=== PATIENT | male | born 1965 | race Caucasian/White ===

== ENCOUNTER 2018-05-28 08:54 | Day surgery (SDC) | payer MEDICAID, SELFPAY ==
--- NOTE | 2018-05-21 17:03 | EKG12_ITS ---
Test Reason : EKG Blood Pressure : / mmHG Vent. Rate : 083 BPM Atrial Rate : 083 BPM P-R Int : 160 ms QRS Dur : 108 ms QT Int : 384 ms P-R-T Axes : 003 -52 002 degrees QTc Int : 451 ms Normal sinus rhythm Left anterior fascicular block Abnormal ECG Confirmed by MALACHI ANGUIANO, BRYSON ([id number]), desk editor AUNDREA PATE ([id number]) on 05/22/2018 3:15:32 PM Referred By: Mitchel Gentile Confirmed By:BRYSON LY MD
[2018-05-21 17:12] LABS: Hemoglobin 14.3 g/dl (13.0-16.5); Mean Corp Hgb Conc 33.3 g/gl (32-36); Mean Corpuscular Hgb 30.8 pg (27.0-32.0); Mean Corpuscular Volume 92.5 fL (80-94); Platelet Count 334 K/mm3 (150-450); RBC Distribution Width CV 14.1 % (11.6-14.6); RBC Distribution Width SD 46.1 fl (35.1-43.9); Red Blood Count 4.65 M/mm3 (4.6-6.2); White Blood Count 10.9 K/mm3 (4.4-11.0)
[2018-05-21 17:29] LABS: Anion Gap 10 (5-15); BUN 16 mg/dL (7-18); BUN/Creat Ratio 14.4 RATIO (10-20); Calcium,Total 9.2 mg/dL (8.5-10.1); Chloride 104 mmol/L (98-107); Creatinine, Serum 1.11 mg/dL (0.70-1.30); EST Glomerular Filtration Rate 74 mL/min (>60); Est Glom Filt Rate - Afr Amer 89 mL/min (>60); Glucose 79 mg/dL (74-106); Potassium 4.2 mmol/L (3.5-5.1); Scan Indicated on CBC? Y/N NO; Sodium Level 143 mmol/L (136-145)
[2018-05-28 09:21] VITALS: BP 131/88; PULSE 76; RESP 16; TEMP 37.4; O2SAT 96; BMI 29.5
[2018-05-28] MEDS: Cefazolin 2 GM in 0.9% Normal Saline 100 ML IV (11:50)
[2018-05-28] MEDS: Bupiv/Epi 0.5% Mpf 30 ML Vial (12:05)
--- NOTE | 2018-05-28 13:10 | PCM.IMDPSTOP ---
Immediate Post-Op Note Date of Procedure: 05/28/18 Primary Surgeon/Physician: Mitchel Gentile wellfield technician: Gianni Anderson Pre-Operative Diagnosis: ACL graft tear, medial and lateral meniscus tears, OA right knee Post-Operative Diagnosis: same Surgery/Procedure Performed:: ACL reconstruction with 9 mm tiabialis anterior allograft, partial medial and lateral meniscectomies, chondroplasty [facility] [place] Description of Surgical Findings:: see op note Estimated Blood Loss: <25cc Specimen's removed: none Type of Anesthesia:: General/Regional ASA Class: ASA2 Mod Systematic Disease - Admit VTE Documentation VTE Present on Admission: No VTE Mechan Device Prophylaxis: SCD's, Thigh High ASHLY Hose VTE Pharm Prophylaxis ordered?: Yes
--- NOTE | 2018-05-28 13:14 | OP.PN_ITS ---
Immediate Post-Op Note Date of Procedure: 05/28/18 Primary Surgeon/Physician: Mitchel Gentile plug cutting machine operator: Gianni Anderson Pre-Operative Diagnosis: ACL graft tear, medial and lateral meniscus tears, OA right knee Post-Operative Diagnosis: same Surgery/Procedure Performed:: ACL reconstruction with 9 mm tiabialis anterior allograft, partial medial and lateral meniscectomies, chondroplasty [facility] [place] Description of Surgical Findings:: see op note Estimated Blood Loss: <25cc Specimen's removed: none Type of Anesthesia:: General/Regional ASA Class: ASA2 Mod Systematic Disease - Admit VTE Documentation VTE Present on Admission: No VTE Mechan Device Prophylaxis: SCD's, Thigh High ASHLY Hose VTE Pharm Prophylaxis ordered?: Yes
[2018-05-28 13:33] VITALS: BP 131/88; BP 136/86; PULSE 83; RESP 16; TEMP 36.4; O2SAT 92
[2018-05-28 13:45] VITALS: BP 131/88; BP 161/89; PULSE 81; RESP 16; O2SAT 96
[2018-05-28 14:00] VITALS: BP 131/88; BP 135/89; PULSE 77; RESP 16; O2SAT 96
[2018-05-28 14:11] VITALS: BP 125/83; BP 131/88; PULSE 77; RESP 16; TEMP 36.7; O2SAT 96
[2018-05-28] MEDS: HYDROcodone Bitartrate/Apap 5/325 Tablet PO (14:54)
[2018-05-28 15:07] VITALS: BP 131/88; BP 135/83; PULSE 65; RESP 16; TEMP 36.7; O2SAT 96
== END 2018-05-28 15:30 | disposition home or self-care (01) ==
LOC: SDC 08:56 → AC 08:57
PROVIDERS: Family Provider Nurse Practitioner Family; PCP Nurse Practitioner Family; Referring Provider Orthopaedic Surgery; Visit Provider Orthopaedic Surgery
PROC: (CPT 29888; principal; 2018-05-28 10:20)
DX: S83.511A Sprain of anterior cruciate ligament of right knee, initial encounter (principal); S83.231A Complex tear of medial meniscus, current injury, right knee, initial encounter; S83.281A Other tear of lateral meniscus, current injury, right knee, initial encounter; X58.XXXA Exposure to other specified factors, initial encounter; Y93.72 Activity, wrestling; M94.261 Chondromalacia, right knee; M17.11 Unilateral primary osteoarthritis, right knee; I10 Essential (primary) hypertension; K59.09 Other constipation; Z79.82 Long term (current) use of aspirin; Z79.899 Other long term (current) drug therapy; Z87.891 Personal history of nicotine dependence
CPT/HCPCS: 29880; 29888; 64447; 36415; 80048; 85027; 93005; J7120; J2405

== ENCOUNTER → 2020-06-17 10:40 | Outpatient (CLI) | payer MEDICAID, SELFPAY ==
--- NOTE | 2020-06-17 10:44 | ECHOD_ITS ---
Reason For Study: SOB Procedure This was a 2D Doppler, Color Flow transthoracic echocardiogram. Exam performed in department. Left Ventricle Normal LV size. Apical false tendon noted. Mild global left ventricular systolic dysfunction. The estimated ejection fraction is 40 %. Transmitral doppler flow suggestive of impaired relaxation of left ventricle. Right Ventricle Normal RV size. Normal systolic function. Atria Normal left atrium. Normal right atrium. No doppler evidence for ASD. Mitral Valve There is no mitral annular calcification. Mild mitral valve prolapse, posterior leaflet. Trivial mitral valve insufficiency. Tricuspid Valve Normal tricuspid valve. Trivial tricuspid valve insufficiency. Right ventricular systolic pressure estimated to be 20 mmHg. Aortic Valve Trisinus/trileaflet aortic valve. Mild focal aortic valve calcification. Trivial aortic valve insufficiency. Pulmonic Valve The pulmonic valve is not well visualized. Trivial pulmonic valve insufficiency. Great Vessels Normal sized aortic root. Pericardium/Pleural No pericardial effusion. MMode/2D Measurements & Calculations LVIDd: 4.6 cm IVSd: 1.1 cm Ao root diam: 3.6 cm LVIDs: 3.4 cm LVPWd: 1.0 cm RVDd: 3.2 cm FS: 27.0 % LAV(MOD-bp): 42.0 ml LVAd ap4: 38.5 cm2 SV(MOD-sp4): 69.1 ml LAV(MOD-bp) Indexed: 18.9 ml/m2 EDV(MOD-sp4): 135.4 ml LAV(MOD-sp2): 40.0 ml EDV(sp4-el): 136.8 ml LAV(MOD-sp4): 42.6 ml LVAs ap4: 25.3 cm2 ESV(MOD-sp4): 66.3 ml ESV(sp4-el): 65.8 ml EF(MOD-sp4): 51.1 % EF(sp4-el): 51.9 % SV(sp4-el): 71.0 ml LA A4 area: 16.3 cm2 LA dimension(2D): 3.2 cm RA A4 area: 15.6 cm2 Doppler Measurements & Calculations MV E max duke: 54.0 cm/sec Lat Peak E' Duke: 9.3 cm/sec Med Peak E' Duke: 8.5 cm/sec MV A max duke: 80.3 cm/sec E/E' lat: 5.8 E/E' med: 6.3 MV E/A: 0.67 Ao V2 max: 147.4 cm/sec LV V1 max: 100.8 cm/sec PA V2 max: 130.8 cm/sec Ao max P.7 mmHg LV V1 max P.1 mmHg TR max duke: 204.0 cm/sec TR max P.6 mmHg Interpretation Summary Mild global left ventricular systolic dysfunction. The estimated ejection fraction is 40 %. Apical false tendon noted. Mild mitral valve prolapse, posterior leaflet Trivial mitral valve insufficiency. Trivial tricuspid valve insufficiency. Mild focal aortic valve calcification. Trivial aortic valve insufficiency. Trivial pulmonic valve insufficiency. Right ventricular systolic pressure estimated to be 20 mmHg. Transmitral doppler flow suggestive of impaired relaxation of left ventricle Ordering Physician: Mehnaz Desouza Referring Physician: Mehnaz Desouza Performed By: Maren Cochran RDCS
--- NOTE | 2020-06-17 16:15 | STRESSREP ---
Stress Test Report Date: 06-17-2020 Procedure: Exercise tolerance test Indications: Shortness of breath/dyspnea on exertion Consent: Per the patient Procedure: The patient exercised on a Steve protocol for 9 minutes and 30 seconds completing Stage III and 30 seconds of Stage IV achieving a peak heart rate of 148 bpm (89% predicted maximal heart rate) with a peak blood pressure 158/72 mmHg and a peak MET capacity of approximately 10 MET's. The baseline ECG demonstrated normal sinus rhythm; nonspecific T wave abnormality. The peak exercise ECG demonstrated no obvious ECG changes. There was a rare PAC during exercise and a rare PVC during recovery. The functional capacity was considered good. The patient had no complaint of chest discomfort during exercise or recovery. The examination was discontinued secondary to dyspnea. Impression: 1. Technically adequate (percent predicted maximal heart rate greater than 85%) exercise tolerance test 2. Peak exercise ECG with with no obvious ECG changes 3. There was a rare PAC during exercise and a rare PVC during recovery This note was generated with [employer] software. It may contain incorrect words, spelling, and punctuation that were not noted in checking the note before signing.
== END ==
PROVIDERS: PCP Nurse Practitioner Family; Referring Provider Nurse Practitioner Family; Visit Provider Nurse Practitioner Family
DX: R06.02 Shortness of breath (principal); I10 Essential (primary) hypertension; E66.9 Obesity, unspecified
CPT/HCPCS: 93017; 93306

== ENCOUNTER → 2020-10-12 09:52 | Outpatient (CLI) | payer MEDICAID, SELFPAY ==
[2020-07-15 15:18] VITALS: BMI 27.1
--- NOTE | 2020-10-12 09:55 | ECHOD_ITS ---
Reason For Study: Dyspnea/SOB Procedure This was a 2D Doppler, Color Flow transthoracic echocardiogram. Exam performed in department. Left Ventricle Normal LV size. Moderate concentric left ventricular hypertrophy. Left ventricular systolic function is normal. Stage 1 diastolic dysfunction. The estimated ejection fraction is 55 %. No regional wall motion abnormalities noted. Right Ventricle Normal RV size. Normal systolic function. Atria Normal left atrium. Normal right atrium. Mitral Valve Normal mitral valve. Tricuspid Valve Normal tricuspid valve. Mild (1+) tricuspid valve insufficiency. Aortic Valve Trisinus/trileaflet aortic valve. Mild (1+) eccentric aortic valve insufficiency. Pulmonic Valve Normal pulmonic valve. Great Vessels Normal aortic root. The pulmonary artery is normal size. Normal inferior vena cava. Pericardium/Pleural No pericardial effusion. MMode/2D Measurements & Calculations LVIDd: 4.6 cm IVSd: 1.4 cm LA dimension: 4.0 cm LVIDs: 3.1 cm LVPWd: 1.3 cm RVDd: 3.9 cm FS: 32.2 % LAV(MOD-bp): 47.7 ml LVAd ap4: 39.1 cm2 SV(MOD-sp4): 71.5 ml LAV(MOD-bp) Indexed: 22.4 ml/m2 EDV(MOD-sp4): 144.5 ml LAV(MOD-sp2): 50.0 ml EDV(sp4-el): 151.4 ml LAV(MOD-sp4): 45.6 ml LVAs ap4: 26.3 cm2 ESV(MOD-sp4): 73.0 ml ESV(sp4-el): 75.8 ml EF(MOD-sp4): 49.5 % EF(sp4-el): 50.0 % SV(sp4-el): 75.7 ml LA A4 area: 17.6 cm2 RA A4 area: 16.1 cm2 Time Measurements MV dec time: 0.29 sec Doppler Measurements & Calculations MV E max duke: 63.6 cm/sec Lat Peak E' Duke: 8.5 cm/sec Med Peak E' Duke: 7.7 cm/sec MV A max duke: 81.4 cm/sec E/E' lat: 7.5 E/E' med: 8.2 MV E/A: 0.78 MV V2 max: 80.2 cm/sec MV P1/2t max duke: 69.2 cm/sec Ao V2 max: 130.3 cm/sec MV max P.6 mmHg MV P1/2t: 134.5 msec Ao max P.8 mmHg MV V2 mean: 45.0 cm/sec MV mean P.93 mmHg MV dec slope: 150.8 cm/sec2 MV V2 VTI: 27.8 cm MVA(P1/2t): 1.6 cm2 AI max duke: 394.7 cm/sec LV V1 max: 90.9 cm/sec PA V2 max: 122.3 cm/sec AI max P.3 mmHg LV V1 max P.3 mmHg AI dec slope: 200.0 cm/sec2 AI P1/2t: 577.9 msec TR max duke: 212.3 cm/sec TR max P.0 mmHg ECHO/Echo Complete Interpretation Summary Normal LV size. Moderate concentric left ventricular hypertrophy. Left ventricular systolic function is normal. Stage 1 diastolic dysfunction. The estimated ejection fraction is 55 %. Mild (1+) eccentric aortic valve insufficiency. Compared to previous study, the left ventricular systolic function has improved .. Ordering Physician: Silas Ta Referring Physician: Mehnaz Desouza Performed By: Kamran Lopez RCS
== END ==
PROVIDERS: PCP Nurse Practitioner Family; Referring Provider Internal Medicine Cardiovascular Disease; Visit Provider Internal Medicine Cardiovascular Disease
DX: I42.9 Cardiomyopathy, unspecified (principal); I10 Essential (primary) hypertension; R06.00 Dyspnea, unspecified; R06.02 Shortness of breath
CPT/HCPCS: 93306

== ENCOUNTER → 2021-01-20 10:52 | Outpatient (CLI) | payer MEDICAID, SELFPAY ==
[2020-10-16 10:35] VITALS: BMI 25.6
--- NOTE | 2021-01-20 10:59 | ECHOL_ITS ---
Reason For Study: CHF Procedure This was a limited 2D transthoracic echocardiogram. Exam performed in department. Left Ventricle Normal LV size. Mild concentric left ventricular hypertrophy. Left ventricular systolic function is normal. The estimated ejection fraction is 55 %. No regional wall motion abnormalities noted. Right Ventricle Normal RV size. Normal systolic function. Atria Normal left atrium. Normal right atrium. Mitral Valve Normal mitral valve. Tricuspid Valve Normal tricuspid valve. Aortic Valve Normal aortic valve. Trisinus/trileaflet aortic valve. Pulmonic Valve Normal pulmonic valve. Great Vessels Normal aortic root. The pulmonary artery is normal size. Normal inferior vena cava. Pericardium/Pleural No pericardial effusion. MMode/2D Measurements & Calculations LVIDd: 5.1 cm IVSd: 1.2 cm Ao root diam: 3.6 cm LVIDs: 3.8 cm LVPWd: 1.2 cm RVDd: 3.9 cm FS: 25.2 % LAV(MOD-bp): 54.8 ml LA A4 area: 17.4 cm2 LA dimension(2D): 3.7 cm LAV(MOD-bp) Indexed: 25.7 ml/m2 LAV(MOD-sp2): 52.6 ml LAV(MOD-sp4): 47.9 ml RA A4 area: 19.0 cm2 ECHO/Echo, Limited Study Interpretation Summary Normal LV size. Left ventricular systolic function is normal. The estimated ejection fraction is 55 %. Mild concentric left ventricular hypertrophy. Ordering Physician: Curtis Guajardo Referring Physician: Lindsey Desouza Performed By: Daisy Kelley RDCS, RVT
== END ==
PROVIDERS: PCP Nurse Practitioner Family; Referring Provider Nurse Practitioner Family; Visit Provider Nurse Practitioner Family
DX: I42.9 Cardiomyopathy, unspecified (principal); E78.5 Hyperlipidemia, unspecified; I10 Essential (primary) hypertension
CPT/HCPCS: 93308

== ENCOUNTER → 2023-03-07 | Outpatient (CLI) | payer MEDICAID, SELFPAY ==
[2023-03-07 10:04] LABS: Absolute Lymphocyte Count 1.63 X10^3/uL (0.83-4.51); Absolute Neutrophil Count 4.5 X10^3/uL (2.0-7.7); Basophil# 0.03 X10^3/uL; Basophil% 0.4 % (0-1); Eosinophil# 0.22 X10^3/uL; Hematocrit 41.5 % (40-54); Hemoglobin 13.9 g/dL (13.0-16.5); Lymphocyte # 1.63 X10^3/ul (0.83-4.51); Mean Corp Hgb Conc 33.5 g/dL (32-36); Mean Corpuscular Hgb 33.1 pg (27.0-32.0); Mean Corpuscular Volume 98.8 fL (80-94); Mean Platelet Vol. 9.1 fl (6.2-12.0); Monocyte# 1.01 X10^3/uL; Monocyte% 13.6 % (0-10); NRBC Flagged by Analyzer 0 % (0-5); Neutrophil # 4.49 X10^3/uL (2.7-7.7); Neutrophil % 60.7 % (47-70); Platelet Count 195 K/mm3 (150-450); RBC Distribution Width CV 12.6 % (11.6-14.6); RBC Distribution Width SD 45.3 fl (35.1-43.9); White Blood Count 7.4 K/mm3 (4.4-11.0)
[2023-03-07 10:35] LABS: Anion Gap 5 (5-15); BUN 14 mg/dL (7-18); BUN/Creat Ratio 15.2 RATIO (10-20); Chloride 107 mmol/L (98-107); Creatinine, Serum 0.92 mg/dL (0.70-1.30); EST Glomerular Filtration Rate 90 mL/min (>60); Est Glom Filt Rate - Afr Amer 109 mL/min (>60); Glucose 98 mg/dL (74-106); Sodium Level 139 mmol/L (136-145)
[2023-03-07 10:43] LABS: Hemoglobin A1c 5.5 % (3.8-5.6)
[2023-03-07 10:53] LABS: AST(SGOT) 21 U/L (15-37); Alanine Aminotransfer ALT/SGPT 35 U/L (16-61); Albumin, Serum 3.7 g/dL (3.2-5.0); Alkaline Phosphatase 52 U/L (45-117); Bilirubin, Direct 0.15 mg/dL (0.00-0.30); Cholesterol 185 mg/dL (200); Globulin 3.9 g/dL (2.2-4.2); High Density Lipoprotein 46 mg/dL; Protein, Total 7.6 g/dL (6.4-8.2); T4 Free Direct 1.12 ng/dL (0.76-1.46); Thyroid Stim Hormone (TSH) 3.03 uIU/mL (0.358-3.74); Triglycerides 160 mg/dL; Very Low Density Lipoprotein 32 mg/dL (5-40)
[2023-03-15 21:07] LABS: Testosterone Free 1.9 pg/mL (7.2-24.0)
== END | disposition home or self-care (01) ==
LOC: LAB 09:47
PROVIDERS: Orthopaedic Surgery; PCP Nurse Practitioner Family; Referring Provider Nurse Practitioner Family; Visit Provider Nurse Practitioner Family
DX: Z01.818 Encounter for other preprocedural examination (principal); I42.8 Other cardiomyopathies; R53.83 Other fatigue; I10 Essential (primary) hypertension; E78.5 Hyperlipidemia, unspecified
CPT/HCPCS: 80048; 80061; 80076; 83036; 84402; 84403; 84439; 84443; 85025

== ENCOUNTER → 2023-03-08 | Outpatient (CLI) | payer MEDICAID, SELFPAY ==
--- NOTE | 2023-03-08 06:43 | ECHOD_ITS ---
Reason For Study: FATIGUE, CAD HX. Procedure This was a 2D Doppler, Color Flow transthoracic echocardiogram. Exam performed in department. Left Ventricle Normal LV size. Mild concentric left ventricular hypertrophy. Left ventricular systolic function is normal. The estimated ejection fraction is 56 %. Stage 1 diastolic dysfunction. No regional wall motion abnormalities noted. Right Ventricle Normal RV size. Normal systolic function. Atria Normal left atrium. Normal right atrium. Mitral Valve Normal mitral valve. Tricuspid Valve Normal tricuspid valve. Mild tricuspid valve insufficiency. Pulmonary artery systolic pressure is 35 mmHg. Aortic Valve Trisinus/trileaflet aortic valve. Pulmonic Valve Normal pulmonic valve. Great Vessels Normal aortic root. The pulmonary artery is normal size. Normal inferior vena cava. Pericardium/Pleural No pericardial effusion. MMode/2D Measurements & Calculations LVIDd: 5.1 cm IVSd: 1.3 cm Ao root diam: 3.4 cm LVIDs: 3.6 cm LVPWd: 1.2 cm RVDd: 3.9 cm FS: 29.4 % LAV(MOD-bp): 60.8 ml LVAd ap4: 36.9 cm2 SV(MOD-sp4): 64.8 ml LAV(MOD-bp) Indexed: 28.6 ml/m2 LVLd ap4: 9.2 cm LAV(MOD-sp2): 58.7 ml EDV(MOD-sp4): 124.0 ml LAV(MOD-sp4): 60.4 ml EDV(sp4-el): 125.1 ml LVAs ap4: 22.5 cm2 LVLs ap4: 7.9 cm ESV(MOD-sp4): 59.2 ml ESV(sp4-el): 54.4 ml EF(MOD-sp4): 52.3 % EF(sp4-el): 56.5 % SV(sp4-el): 70.7 ml LA A4 area: 21.5 cm2 LA dimension(2D): 3.7 cm RA A4 area: 17.3 cm2 Time Measurements MV dec time: 0.23 sec Doppler Measurements & Calculations MV E max duke: 72.4 cm/sec Lat Peak E' Duke: 11.9 cm/sec Med Peak E' Duke: 9.7 cm/sec MV A max duke: 76.3 cm/sec E/E' lat: 6.1 E/E' med: 7.5 MV E/A: 0.95 MV V2 max: 95.3 cm/sec Ao V2 max: 157.3 cm/sec MV max P.6 mmHg MV dec slope: 315.7 cm/sec2 Ao max P.9 mmHg MV V2 mean: 68.7 cm/sec Ao V2 mean: 117.8 cm/sec MV mean P.0 mmHg Ao mean P.0 mmHg MV V2 VTI: 21.2 cm Ao V2 VTI: 31.2 cm AV (velocity ratio): 0.69 LV V1 max: 104.8 cm/sec PA V2 max: 132.1 cm/sec TR max duke: 275.0 cm/sec LV V1 max P.4 mmHg PA V2 mean: 94.3 cm/sec TR max P.2 mmHg LV V1 mean P.5 mmHg LV V1 mean: 75.3 cm/sec LV V1 VTI: 21.6 cm ECHO/Echo Complete Interpretation Summary Normal LV size. Left ventricular systolic function is normal. The estimated ejection fraction is 56 %. Mild concentric left ventricular hypertrophy. Stage 1 diastolic dysfunction. Pulmonary artery systolic pressure is 35 mmHg. Ordering Physician: Curtis Guajardo Referring Physician: Mehnaz Desouza Performed By: Daisy Kelley, OCTAVIO, RVT
--- NOTE | 2023-03-13 16:38 | STRESSREP_ITS ---
Stress Test Report Date: 03/08/2023 Procedure: Exercise tolerance test/imaging study Indications: Fatigue, preoperative evaluation Consent: Per the patient Procedure: The patient exercised on a Steve protocol for 9 minutes achieving a peak heart rate of 157 bpm (96% predicted maximal heart rate) with a peak blood pressure 190/88 mmHg and a peak MET capacity of 10.1 METs. The baseline ECG demonstrated normal sinus rhythm. The peak exercise ECG demonstrated no significant ischemic changes. EKG during recovery revealed no significant ischemic changes [There were no cardiac dysrhythmias pretest, during exercise, or recovery]. The functional capacity was considered normal for age. There was [no complaint of chest discomfort during exercise or recovery]. The examination was discontinued secondary to dyspnea. Impression: 1. Technically adequate (percent predicted maximal heart rate greater than 85%) exercise tolerance test 2. Stress test is negative for exercise-induced EKG changes of ischemia 3. The test test is negative for exercise-induced chest pain 4. Functional capacity is normal for age 5. Nuclear images pending Myocardial perfusion imaging study: Technique: The patient was injected with 13.9 mCi of technetium 99m Cardiolite and subsequently rest SPECT Cardiolite nuclear imaging was obtained in the horiz ontal long, vertical long, and short axis views. The patient exercised on a Steve protocol. Please see above for details. The patient was injected with 40.2 mCi of technetium 99m Cardiolite and subsequently stress SPECT Cardiolite nuclear imaging was obtained in the horizontal long, vertical long, and short axis views. A gated Cardiolite study at peak stress was obtained. Interpretation: Rest and stress SPECT Cardiolite nuclear imaging status post realignment, normalization, and attenuation correction, demonstrates mildly decreased radioisotope uptake in the inferior wall on both the rest and stress images prior to attenuation correction. After attenuation correction there is overall normal myocardial radioisotope uptake. These findings are suggestive of diaphragmatic attenuation artifact. No evidence of significant ischemia or infarction. The gated Cardiolite study demonstrates no significant regional wall motion abnormalities. The reported LVEF is 62%. Impression: 1. There is no evidence of significant ischemia or infarction. 2. The gated Cardiolite study reports an LVEF of 62%. This note was generated with [facility] software. It may contain incorrect words, spelling, and punctuation that were not noted in checking the note before signing.
== END | disposition home or self-care (01) ==
LOC: CVS 06:36
PROVIDERS: PCP Nurse Practitioner Family; Referring Provider Nurse Practitioner Family; Visit Provider Nurse Practitioner Family
DX: R53.83 Other fatigue (principal); I42.8 Other cardiomyopathies; I10 Essential (primary) hypertension; E78.5 Hyperlipidemia, unspecified
CPT/HCPCS: 78452; 93017; 93306; A9500; A4216

== ENCOUNTER 2023-03-20 05:29 | Day surgery (SDC) | payer MEDICAID, SELFPAY ==
[2023-03-20 06:05] VITALS: BP 145/95; PULSE 62; RESP 18; TEMP 36.5; O2SAT 100; BMI 27.1
[2023-03-20] MEDS: Lactated Ringers 1,000 ML 15 ML IV ×2 (06:45→09:01)
[2023-03-20] MEDS: Cefazolin 2 GM in 0.9% Normal Saline (100mL Bag) 100 ML IV (07:40)
[2023-03-20] MEDS: Epinephrine (1 mg/ml) 1 MG/ML VIAL ×2 (08:00→08:52)
[2023-03-20] MEDS: Bupivacaine Mpf 0.5% 30 ML VIAL (08:00)
--- NOTE | 2023-03-20 09:18 | OP.PCM_ITS ---
Report of Operation Date of Procedure: 03/20/23 Pre-Operative Diagnosis: SAIS,AC arthritis, RCT, possible biceps tendon tear ri ght shoulder Post-Operative Diagnosis: same with no biceps tendon tear Surgery/Procedure Performed:: ASD, Horace procedure, rotator cuff repair right shoulder Description of Surgical Findings:: Report of Operation Date of Procedure: 03/20/2023 Preoperative Diagnosis: Right shoulder, SAIS, AC arthrosis, rotator cuff tear, possible biceps tendon tear Postoperative Diagnosis: Right Shoulder, SAIS, AC arthritis, large RCT and intact biceps tendon Operation: Diagnostic and operative arthroscopy of the right shoulder with arthroscopic subacromial decompression, Horace procedure and repair of larger RCT Surgeon: Dr Mitchel Gentile DO Young Adult Librarian: Gianni Anderson PA-C Anesthesia: General Anesthesiologist: Evelio Moncada M.D. Description of Procedure: With appropriate informed consent, the patient was taken to the operative suite. After induction of general and regional anesthesia and administration of preoperative antibiotics, the patient was placed in a beach-chair position with all bony prominences well padded. SCD's were on the legs. The right arm and shoulder were prepared and draped sterilely. Thereafter, the standard arthroscopy portals were established. The glenohumeral joint was in good condition without evidence of damage or arthrosis. An anterior portal was established. There was moderate bicipital tendinopathy with no tearing orsubluxation of the biceps tendon from the bicipital groove. A shaver was utilized to debrided the biceps tendinopathy.. There was no labral instability. There was a tear of the supraspinatus into the leading edge of the infraspinatus. The undersurface of this was debrided with a shaver. The arthroscopy instruments were then removed from the joint and placed into the subacromial space. A lateral portal was established. There was severe hypertrophic subacromial bursitis. A complete subacromial bursectomy was carried out. This revealed a large anterior inferior subacromial spur and significant AC joint arthrosis. A bur was utilized to perform an anterior inferior acromionectomy to flatten the undersurface of the acromion and decompress the subacromial space. The bur was then utilized to resect the distal 9mm of the clavicle in the manner of Horace. Attention was now brought to the rotator cuff. The rotator cuff footprint was slightly decorticated with a bur. Thereafter, [ 6 ] Arthrex FiberTape suture was placed in a horizontal mattress fashion and then augmented with a FiberLoop to augment the repair. The sutures were brought out laterally then over [ 3 ] SwiveLock anchor, very nicely bringing the rotator cuff back down to the footprint and compressing it. The free ends of the sutures were cut and I was able to take the shoulder through a full range of motion with no evidence of undue impingement or undue tension upon the repair. Arthroscopy instruments and fluids were removed. The portals were closed with interrupted sutures of 4-0 nylon followed by application of a sterile well- padded dressing and UltraSling. My marketing operations assistant, Mr Anderson, provided a vital role in the performance of this procedure beginning with positioning of the patient, maneuvering the arm, holding the arthroscope during various portions of the diagnostic and operative arthroscopy. Then, under my direct supervision, he closed the wounds and applied the sterile post-operative dressing. The patient was extubated and transferred to the PACU in stable and satisfactory condition. Mitchel Gentile DO Surgeon: Mitchel Gentile contract law specialist: Gianni Anderson Type of Anesthesia: General/Regional Anesthesiologist: Evelio Moncada Admmariam VTE Documentation VTE Present on Admission: No VTE Mechan Device Prophylaxis: SCD's and Thigh High ASHLY Hose VTE Pharm Prophylaxis ordered?: Yes
[2023-03-20 09:21] VITALS: BP 126/81; BP 145/95; PULSE 53; RESP 16; TEMP 36.3; O2SAT 93
[2023-03-20 09:30] VITALS: BP 139/80; BP 145/95; PULSE 49; RESP 16; O2SAT 93
[2023-03-20 09:45] VITALS: BP 145/83; BP 145/95; PULSE 46; RESP 16; O2SAT 95
[2023-03-20 10:00] VITALS: BP 145/95; BP 148/83; PULSE 44; RESP 16; TEMP 36.3
[2023-03-20 11:00] VITALS: BP 145/95; BP 153/81; PULSE 50; RESP 16; TEMP 36.9; O2SAT 94
== END 2023-03-20 11:12 | disposition home or self-care (01) ==
LOC: SDC 05:30 → AC 05:30
PROVIDERS: PCP Nurse Practitioner Family; Referring Provider Orthopaedic Surgery; Visit Provider Orthopaedic Surgery
PROC: (CPT 29827; principal; 2023-03-20 07:10)
DX: S46.011A Strain of muscle(s) and tendon(s) of the rotator cuff of right shoulder, initial encounter (principal); I42.8 Other cardiomyopathies; M19.011 Primary osteoarthritis, right shoulder; E66.3 Overweight; I10 Essential (primary) hypertension; E78.00 Pure hypercholesterolemia, unspecified; Z79.82 Long term (current) use of aspirin; Z79.899 Other long term (current) drug therapy; Z87.891 Personal history of nicotine dependence; Z68.28 Body mass index [BMI] 28.0-28.9, adult; X58.XXXA Exposure to other specified factors, initial encounter
CPT/HCPCS: 29827; 29824; 29826; 64415; 01630; J7120; J2405

== ENCOUNTER → 2024-03-05 | Outpatient (CLI) | payer MEDICAID, SELFPAY ==
[2024-03-05 11:56] LABS: Absolute Lymphocyte Count 1.99 X10^3/uL (0.83-4.51); Absolute Neutrophil Count 3.1 X10^3/uL (2.0-7.7); Basophil# 0.04 X10^3/uL; Basophil% 0.6 % (0-1); Eosinophil# 0.15 X10^3/uL; Eosinophils% 2.4 % (0-5); Hematocrit 42.1 % (40-54); Hemoglobin 13.8 g/dL (13.0-16.5); Lymphocyte # 1.99 X10^3/ul (0.83-4.51); Lymphocyte % 31.6 % (19-41); Mean Corp Hgb Conc 32.8 g/dL (32-36); Mean Corpuscular Volume 97.7 fL (80-94); Mean Platelet Vol. 9.7 fl (6.2-12.0); Monocyte% 15.9 % (0-10); NRBC Flagged by Analyzer 0 % (0-5); Neutrophil # 3.09 X10^3/uL (2.7-7.7); Neutrophil % 49.2 % (47-70); Platelet Count 233 K/mm3 (150-450); RBC Distribution Width CV 12.8 % (11.6-14.6); RBC Distribution Width SD 45.9 fl (35.1-43.9); Red Blood Count 4.31 M/mm3 (4.6-6.2); White Blood Count 6.3 K/mm3 (4.4-11.0)
[2024-03-05 13:49] LABS: ALB/GLOB Ratio 0.9 RATIO (0.9-2.4); AST(SGOT) 22 U/L (15-37); Alanine Aminotransfer ALT/SGPT 29 U/L (16-61); Albumin, Serum 3.9 g/dL (3.2-5.0); Alkaline Phosphatase 58 U/L (45-117); Anion Gap 6 (5-15); BUN 20 mg/dL (7-18); BUN/Creat Ratio 20.3 RATIO (10-20); Calcium,Total 9.8 mg/dL (8.5-10.1); Chloride 106 mmol/L (98-107); Cholesterol 162 mg/dL (200); Creatinine, Serum 0.98 mg/dL (0.70-1.30); EST Glomerular Filtration Rate 83 mL/min (>60); Est Glom Filt Rate - Afr Amer 101 mL/min (>60); Globulin 4.2 g/dL (2.2-4.2); Glucose 81 mg/dL (74-106); High Density Lipoprotein 43 mg/dL; Potassium 4.3 mmol/L (3.5-5.1); Protein, Total 8.1 g/dL (6.4-8.2); Sodium Level 140 mmol/L (136-145); Triglycerides 212 mg/dL; Very Low Density Lipoprotein 42 mg/dL (5-40)
== END | disposition home or self-care (01) ==
LOC: LAB 10:56
PROVIDERS: PCP Nurse Practitioner Family; Referring Provider Nurse Practitioner Family; Visit Provider Nurse Practitioner Family
DX: R53.83 Other fatigue (principal); I42.8 Other cardiomyopathies; I10 Essential (primary) hypertension; E78.5 Hyperlipidemia, unspecified
CPT/HCPCS: 36415; 80053; 80061; 85025

== ENCOUNTER → 2025-04-24 | Outpatient (CLI) | payer MEDICAID, SELFPAY ==
--- OUTSIDE RECORDS SUMMARY | 2025-04-24 11:11 | XMS RPT_ITS | CCD ---
Author Organization [facility] Care Team Providers Care Bottom Brusher Name Role Phone Required, No Pcp Unavailable Unavailable Fredis Piper Unavailable Unavailable Deo, Susu K Unavailable Adela Cheek Unavailable Unavailable Deo SUPERVISOR BLAST FURNACE, SUPERVISOR BLAST FURNACE-C Susu Primary Care Provider Deo SUPERVISOR BLAST FURNACE, SUPERVISOR BLAST FURNACE-C Susu Referring Provider Roof SUPERVISOR BLAST FURNACE, SUPERVISOR BLAST FURNACE-C Olivia Ryan Attending Provider Roof SUPERVISOR BLAST FURNACE, SUPERVISOR BLAST FURNACE-C Olivia H Referring Provider Roof SUPERVISOR BLAST FURNACE, SUPERVISOR BLAST FURNACE-C Olivia H Other Provider Dr. Alicia Conley Attending Provider Dr. Silas Ta Attending Provider Dr. Silas Ta Referring Provider Deo Susu K Unavailable Ms. Adela Cheek Attending Unava ilkayli Gentile, Dr. Mitchel Barajas Attending Unava ilkayli Gentile, Dr. Mitchel Barajas Attending Unava ilable Krupa, Dr. Mitchel Barajas Attending Unava ilable Deo, MsQuintin Mohr Attending Unavailable Deo HEALTH AND WELLNESS DIRECTOR-SPINDLE CARVER, Susu K Primary Care Provider OLIVIA ALVAREZ Attending Unavailable DEO, SUSU K Primary Care Unavailable OLIVIA ALVAREZ Attending Unavailable DEO, SUSU K Primary Care Unavailable Deo SUPERVISOR BLAST FURNACE, Susu Primary Care Unavailable Deo SUPERVISOR BLAST FURNACE, Susu Referring Unavailable Silas Ta Attending Unavailable Deo SUPERVISOR BLAST FURNACE, Susu Primary Care Unavailable Mitchel Gentile Attending Unavailable Mitchel Gentile Referring Unavailable Bennett SUPERVISOR BLAST FURNACEOlivia Attending Unavailable Bennett SUPERVISOR BLAST FURNACE, Olivia Ryan Referring Unavailable Deo SUPERVISOR BLAST FURNACE, Susu Primary Care Unavailable Deo SUPERVISOR BLAST FURNACE, Susu Primary Care Unavailable Deo SUPERVISOR BLAST FURNACE, Susu Referring Unavailable Bennett SUPERVISOR BLAST FURNACE, Olivia Ryan Attending Unavailable SUSU HAWKINS Attending Unavailable SUSU HAWKINS Consulting Unavailable DEO, SUSU Primary Care Unavailable DEO, SUSU Admitting Unavailable PROVIDER, UNKNOWN Consulting Unavailable DEO, SUSU Admitting Unavailable DEO, SUSU Attending Unavailable DEO, SUSU Primary Care Unavailable ALVAREZ, OLIVIA Edmonds Attending Unavailable ALVAREZ, OLIVIA Edmonds Primary Care Unavailable ALVAREZOLIVIA Garcia Admitting Unavailable Deo HEALTH AND WELLNESS DIRECTOR-SPINDLE CARVER, Susu Garcia Primary Care Provider SUSU HAWKINS Primary Care Unavailable SARAH GUALLPA Attending Unavailable SUSU HAWKINS Referring Unavailable SUSU HAWKINS Primary Care Unavailable SUSU HAWKINS Primary Care Unavailable SARAH GUALLPA Attending Unavailable SUSU HAWKINS Primary Care Unavailable FREDIS PIPER Attending Unavailable Medications Current Medications Medication Drug Class(es) Dates Sig (Normalized) Sig (Original) acetaminophen 500 mg oral capsule (6 sources) Start: 03-06-2023 take 1000 mg by mouth every six hours Acetaminophen Active 1000 MG PO EVERY 6 HOURS March 06, 2023 12:00am Start: 05-22-2018 End: 07-06-2020 take 500-1000 mg by mouth every six hours as needed Acetaminophen Discontinued 500 - 1000 MG PO EVERY 6 HOURS NEEDED May 22, 2018 1:00am July 06, 2020 8:22pm amoxicillin 875 mg / clavulanate 125 mg oral tablet (3 sources) Penicillin-class Antibacterial Start: 07-16-2024 End: 07-26-2024 take 1 tablet by mouth twice daily amoxicillin-pot clavulanate (Augmentin) 875-125 mg tablet Indications: acute bacterial sinusitis Take 1 tablet by mouth 2 times a day for 10 days. 20 tablet 07/16/2024 07/26/2024 Active Start: 11-15-2022 End: 06-10-2023 amoxicillin-pot clavulanate (Augmentin) 875-125 mg tablet Take by mouth. 0 11/15/2022 06/10/2023 Discontinued (Med List Cleanup) ascorbic acid 1000 mg oral tablet (6 sources) Vitamin C Start: 05-22-2018 End: 10-16-2020 take 1000 mg by mouth once daily Ascorbic Acid (Vitamin C) Active 1000 MG PO DAILY October 16, 2020 10:36am aspirin 81 mg delayed release oral tablet (6 sources) Platelet Aggregation Inhibitor, Nonsteroidal Anti-inflammatory Drug Start: 09-01-2022 Aspirin (Adult Low Dose Aspirin) 81 mg tablet,delayed release (DR/EC) Active 81 MG PO DAILY September 01, 2022 1:00am Start: 05-22-2018 End: 07-15-2020 take 81 mg by mouth once daily Aspirin Discontinued 81 MG PO DAILY@0800 May 22, 2018 1:00am July 15, 2020 4:53pm azelastine hydrochloride 0.137 mg/actuat metered dose nasal spray (7 sources) Histamine-1 Receptor Antagonist Start: 02-23-2023 azelastine (Astelin) 137 mcg (0.1 %) nasal spray Administer into each nostril. 02/23/2023 Active azithromycin 250 mg oral tablet (4 sources) Macrolide Antimicrobial Start: 03-26-2025 azithromycin (Zithromax Z-Eleuterio) 250 mg tablet Indications: Acute bronchitis, unspecified organism Take 2 tablets (500 mg) on Day 1, followed by 1 tablet (250 mg) once daily on Days 2 through 5. 6 tablet 03/26/2025 Active Start: 07-22-2024 End: 07-27-2024 azithromycin (Zithromax Z-Pa k) 250 mg tablet Indications: Acute bronchitis, unspecified organism Take 2 tablets (500 mg) on Day 1, followed by 1 tablet (250 mg) once daily on Days 2 through 5. 6 tablet 07/22/2024 07/27/2024 Active Start: 06-19-2023 End: 06-24-2023 azithromycin (Zithromax Z-Pa k) 250 mg tablet Indications: Acute non-recurrent maxillary sinusitis Take 2 tablets (500 mg) on Day 1, followed by 1 tablet (250 mg) once daily on Days 2 through 5. 6 tablet 0 06/19/2023 06/24/2023 Active Start: 11-07-2022 End: 06-10-2023 azithromycin (Zithromax) 250 mg tablet Take by mouth. 0 11/07/2022 06/10/2023 Discontinued (Med List Cleanup) benzonatate 100 mg oral capsule (3 sources) Non-narcotic Antitussive Start: 06-10-2023 End: 06-20-2023 take 1-2 capsules by mouth every eight hours for cough benzonatate (Tessalon) 100 mg capsule Indications: Acute bronchitis, unspecified organism Take 1-2 capsules (100-200 mg) by mouth every 8 hours if needed for cough for up to 10 days. Do not crush or chew. 60 capsule 0 06/10/2023 06/20/2023 Active brompheniramine maleate 0.4 mg/ml / dextromethorphan hydrobromide 2 mg/ml / pseudoephedrine hydrochloride 6 mg/ml oral solution (2 sources) alpha-Adrenergic Agonist, Uncompetitive E-polyxl-V-asparta te Receptor Antagonist, Sigma-1 Agonist Start: 07-16-2024 End: 07-26-2024 take 5 mL by mouth four times daily as needed for cough brompheniramine-p seudoeph-DM 2-30-10 mg/5 mL syrup Indications: Acute cough Take 5 mL by mouth 4 times a day as needed for congestion or cough for up to 10 days. 120 mL 07/16/2024 07/26/2024 Active carvedilol 12.5 mg oral tablet (20 sources) alpha-Adrenergic Alexia, beta-Adrenergic Alexia Start: 09-01-2022 carvedilol (Coreg) 12.5 mg tablet Take by mouth. 03/02/2023 Active Start: 07-16-2021 End: 09-01-2022 carvedilol (Coreg) 25 mg tab let Take by mouth. 05/27/2022 Active Start: 10-16-2020 End: 07-16-2021 take 12.5 mg by mouth twice daily at mealtime Carvedilol Discontinued 12.5 MG PO TWICE A DAY 180 May 06, 2021 9:32am July 16, 2021 4:23pm must administer with a meal/food Start: 08-26-2020 End: 10-16-2020 take 1 tablet by mouth twice daily at mealtime Carvedilol (Coreg) 25 mg tablet Discontinued 25 MG PO TWICE A DAY 60 August 26, 2020 1:00am October 16, 2020 10:59am must administer with a meal/food Start: 08-12-2020 End: 08-26-2020 take 2 tablets by mouth twice daily at mealtime Carvedilol (Coreg) 6.25 mg tablet Discontinued 12.5 MG PO TWICE A DAY 1 August 12, 2020 6:56pm August 26, 2020 7:28pm must administer with a meal/food Start: 07-27-2020 End: 08-12-2020 take 1 tablet by mouth twice daily at mealtime Carvedilol (Coreg) 6.25 mg tablet Discontinued 6.25 MG PO TWICE A DAY 60 July 27, 2020 1:00am August 12, 2020 6:56pm must administer with a meal/food Start: 07-15-2020 End: 07-27-2020 take 1 tablet by mouth twice daily at mealtime Carvedilol (Coreg) 3.125 mg tablet Discontinued 3.125 MG PO TWICE A DAY July 15, 2020 1:00am July 27, 2020 3:01pm administer with food (meal or snack) carvedilol Quant ity: 0 Refills: 0 Ordered: 09-Mar-2021 Randa Burrell Generic Substitution Allowed cetirizine hydrochloride 10 mg oral tablet (6 sources) Histamine-1 Receptor Antagonist Start: 03-06-2023 take 1 tablet by mouth once daily Cetirizine (24hour Allergy) 10 mg tablet Active 10 MG PO DAILY March 06, 2023 12:00am Start: 05-22-2018 End: 10-16-2020 take 10 mg by mouth once daily Cetirizine Discontinued 10 MG PO DAILY May 22, 2018 1:00am October 16, 2020 10:36am cholecalciferol 0.025 mg oral tablet (6 sources) Vitamin D Start: 03-07-2023 take 25 ug by mouth once daily Cholecalciferol (Vitamin D3) Active 25 MCG PO DAILY March 07, 2023 12:00am Start: 09-01-2022 End: 03-07-2023 take 50 ug by mouth once daily Cholecalciferol (Vitamin D3) Discontinued 50 MCG PO DAILY September 01, 2022 1:00am March 07, 2023 8:38am cinnamon bark 500 mg oral capsule (3 sources) Start: 03-06-2023 take 1 capsule by mouth once daily Cinnamon Bark (Cinnamon) 500 mg capsule Active 500 MG PO DAILY March 06, 2023 12:00am Cod Liver Oil (3 sources) Start: 03-06-2023 take 1 capsule by mouth once daily Cod Liver Oil Active 1 CAP PO DAILY March 06, 2023 12:00am dextromethorphan hydrobromide 15 mg / guaiFENesin 400 mg / pseudoephedrine hydrochloride 60 mg oral tablet (1 source) alpha-Adrenergic Agonist, Uncompetitive A-bvcjnw-G-aspartat e Receptor Antagonist, Sigma-1 Agonist Start: 03-26-2025 End: 04-02-2025 take 1 tablet by mouth every six hours pseudoephedrine- DM-guaifenesin (Capmist DM) 60-15-400 mg tablet Indications: Acute bronchitis, unspecified organism , Acute cough Take 1 tablet by mouth every 6 hours if needed (URI symptoms) for up to 7 days. 28 tablet 03/26/2025 04/02/2025 Active doxycycline monohydrate 100 mg oral tablet (4 sources) Tetracycline-class Drug Start: 07-11-2023 End: 07-18-2023 take 1 tablet by mouth twice daily doxycycline (Adoxa) 100 mg tablet Indications: Acute non-recurrent maxillary sinusitis Take 1 tablet (100 mg) by mouth 2 times a day for 7 days. Take with a full glass of water and do not lie down for at least 30 minutes after 14 tablet 0 07/11/2023 07/18/2023 Active Start: 06-10-2023 End: 06-20-2023 take 1 tablet by mouth twice daily doxycycline (Adoxa) 100 mg tablet Indications: Acute bronchitis, unspecified organism Take 1 tablet (100 mg) by mouth 2 times a day for 10 days. Take with a full glass of water and do not lie down for at least 30 minutes after. 20 tablet 0 06/10/2023 06/20/2023 Active famotidine 20 mg oral tablet (3 sources) Histamine-2 Receptor Antagonist Start: 03-07-2023 take 20 mg by mouth once daily Famotidine Active 20 MG PO DAILY March 07, 2023 12:00am fluticasone propionate 0.05 mg/actuat metered dose nasal spray (3 sources) Corticosteroid Start: 07-06-2020 Fluticasone Propionate Active 2 SPRAY INTRANASAL NEEDED July 06, 2020 1:00am hydroCHLOROthiazide 12.5 mg / lisinopril 10 mg oral tablet (7 sources) Thiazide Diuretic, Angiotensin Converting Enzyme Inhibitor Start: 07-01-2016 take 1 tablet by mouth once daily at bedtime lisinopriL-hydr ochlorothiazide 10-12.5 mg tablet Take 1 tablet by mouth once daily at bedtime. 07/01/2016 Active lactobacillus acidophilus 460 mg oral capsule (10 sources) Start: 04-10-2023 Florajen Acidophilus 20 billion cell capsule Take by mouth. 04/10/2023 Active Start: 03-07-2023 Lactobacillus Acidophilus (Florajen Acidophilus) 20 billion cell capsule Active 30770 MMU CELLS PO DAILY March 07, 2023 12:00am lactobacillus rhamnosus gg [id number] unt oral capsule (7 sources) Start: 07-18-2022 Culturelle 15 billion cell capsule, sprinkle capsule Take by mouth. 07/18/2022 Active Lisinopril (1 source) Angiotensin Converting Enzyme Inhibitor lisinopril Quantity: 0 Refills: 0 Ordered: 16-Feb-2023 Caitlin Morales Generic Substitution Allowed losartan potassium 100 mg oral tablet (20 sources) Angiotensin 2 Receptor Alexia Start: 04-06-2023 losartan (Cozaar) 10 0 mg tablet Take by mouth. 04/06/2023 Active Start: 09-01-2022 take 100 mg by mouth once jeanie y Losartan Active 100 MG PO DAILY September 01, 2022 1:00am Start: 06-28-2021 End: 09-01-2022 losartan (Cozaar) 50 mg tabl et Take by mouth. 06/07/2022 Active Start: 10-16-2020 End: 06-28-2021 take 25 mg by mouth once daily Losartan Discontinued 2 5 MG PO DAILY October 16, 2020 12:00am June 28, 2021 2:34pm Start: 05-22-2018 End: 07-06-2020 take 25 mg by mouth at bedtime Losartan Discontinued 2 5 MG PO AT BEDTIME May 22, 2018 1:00am July 06, 2020 8:19pm losartan Quantit y: 0 Refills: 0 Ordered: 09-Mar-2021 Randa Burrell Generic Substitution Allowed meloxicam 7.5 mg oral tablet (7 sources) Nonsteroidal Anti-inflammatory Drug Start: 03-14-2023 meloxicam (Mobic) 7.5 mg tablet Take by mouth. 03/14/2023 Active methylPREDNISolone (8 sources) Corticosteroid Start: 07-22-2024 End: 03-26-2025 methylPREDNISolone (Medrol Dospak) 4 mg tablets Indications: Acute bronchitis, unspecified organism Take as directed on package. 21 tablet 07/22/2024 03/26/2025 Discontinued (Med List Cleanup) Start: 07-22-2024 methylPREDNISo lone (Medrol Dospak) 4 mg tablets Indications: Acute bronchitis, unspecified organism Take as directed on package. 21 tablet 07/22/2024 Active Start: 06-19-2023 End: 03-26-2025 methylPREDNISolone (Medrol D ospak) 4 mg tablets Indications: Acute non-recurrent maxillary sinusitis Take as directed on package. 21 tablet 06/19/2023 03/26/2025 Discontinued (Med List Cleanup) Start: 06-19-2023 methylPREDNISo lone (Medrol Dospak) 4 mg tablets Indications: Acute non-recurrent maxillary sinusitis Take as directed on package. 21 tablet 06/19/2023 Active Start: 06-19-2023 methylPREDNISo lone (Medrol Dospak) 4 mg tablets Indications: Acute non-recurrent maxillary sinusitis Take as directed on package. 21 tablet 0 06/19/2023 Active Multivitamin preparation (3 sources) Start: 05-22-2018 Multivitamin A ctive 1 EACH PO DAILY May 22, 2018 1:00am multivitamin tablet (7 sources) take 1 tablet by mouth once daily multivitamin tablet Take 1 tablet by mouth once daily. Active take 1 tablet by mouth once jeanie y multivitamin tablet Take 1 tablet by mouth once daily. 0 Active nabumetone 500 mg oral tablet (10 sources) Nonsteroidal Anti-inflammatory Drug Start: 03-27-2023 take 1 tablet by mouth twice daily nabumetone (Relafen) 500 mg tablet Take 1 tablet (500 mg) by mouth 2 times daily (morning and late afternoon). 03/27/2023 Active Start: 03-06-2023 take 500 mg by mouth twice daily Nabumetone Active 500 MG PO TWICE A DAY March 06, 2023 12:00am oxyCODONE hydrochloride 5 mg oral tablet (7 sources) Opioid Agonist take 5-10 mg by mouth every six hours oxyCODONE (Roxicodone) 5 mg immediate release tablet Take 1-2 tablets (5-10 mg) by mouth every 6 hours. Active polysaccharide iron complex 150 mg oral capsule (3 sources) Start: 3 Polysaccharide Iron Complex (Ferrex 150) 150 mg iron capsule Active 150 MG PO DAILY March 07, 2023 12:00am predniSONE 10 mg oral tablet (9 sources) Start: 5 End: 5 take 3 tablets by mouth once daily predniSONE (Deltasone) 10 mg tablet Indications: Acute bronchitis, unspecified organism Take 3 tablets (30 mg) by mouth once daily for 7 days. 21 tablet 03/26/2025 04/02/2025 Active Start: 01-09-2024 End: 03-26-2025 take 4 tablets by mouth once daily, then take 3 tablets by mouth once daily, then take 2 tablets by mouth once daily, then take 1 tablet by mouth once daily predniSONE (Deltasone) 10 mg tablet Indications: Irritant contact dermatitis due to plants, except food 4 tabs po daily x 4 days, then 3 tabs po daily x 4 days, then 2 tab po daily x4 days, then 1 tab po daily x 4 days 40 tablet 01/09/2024 03/26/2025 Discontinued (Med List Cleanup) Start: 07-11-2023 End: 07-17-2023 take 6 tablets by mouth once daily, then take 5 tablets by mouth once daily, then take 4 tablets by mouth once daily, then take 3 tablets by mouth once daily, then take 2 tablets by mouth once daily, then take 1 tablet by mouth once daily predniSONE (Deltasone) 10 mg tablet Indications: Acute non-recurrent maxillary sinusitis Take 6 tablets (60 mg) by mouth once daily for 1 day, THEN 5 tablets (50 mg) once daily for 1 day, THEN 4 tablets (40 mg) once daily for 1 day, THEN 3 tablets (30 mg) once daily for 1 day, THEN 2 tablets (20 mg) once daily for 1 day, THEN 1 tablet (10 mg) once daily for 1 day. Start tomorrow. 21 tablet 0 07/11/2023 07/17/2023 Active Start: 02-16-2023 End: 02-25-2023 predniSONE 10 mg oral tablet ; Take 5 tablets orally once a day for 2 days, then take 4 tablets orally once a day for 2 days, then take 3 tablets orally once a day for 2 days, then take 2 tablets orally once a day for 2 days, then take 1 tablet orally once a day for 2 days. (10 days total) Quantity: 30 Refills: 0 Ordered: 16-Feb-2023 Adela Cheek Start: 16-Feb-2023 End: 25-Feb-2023 Generic Substitution Allowed Comments: It is very important that you take or use this exactly as directed. Do not skip doses or discontinue unless directed by your doctor.Obtain medical advice before taking any non-prescription drugs as some may affect the action of this medication.Take with food or milk. Start: 02-16-2023 End: 06-10-2023 predniSONE (Deltasone) 10 mg tablet Take by mouth. 0 02/16/2023 06/10/2023 Discontinued (Med List Cleanup) Start: 11-15-2022 End: 06-10-2023 predniSONE (Deltasone) 20 mg tablet Take by mouth. 0 11/15/2022 06/10/2023 Discontinued (Med List Cleanup) Comment on above: It is very important that you take or use this exactly as directed. Do not skip doses or discontinue unless directed by your doctor.Obtain medical advice before taking any non-prescription drugs as some may affect the action of this medication.Take with food or milk. sildenafil 100 mg oral tablet (13 sources) Phosphodiesterase 5 Inhibitor Start: 03-07-2023 Sildenafil Active 50 MG PO DAILY March 07, 2023 8:37am administer 30 minutes to 4 hours before activity Start: 02-23-2023 sildenafil (Vi agra) 50 mg tablet Take by mouth. 02/23/2023 Active Start: 07-15-2020 End: 03-07-2023 Sildenafil Discontinued 100 MG PO DAILY July 15, 2020 1:00am March 07, 2023 8:38am administer 30 minutes to 4 hours before activity simvastatin 10 mg oral tablet (10 sources) HMG-CoA Reductase Inhibitor Start: 04-10-2023 simvastatin (Zocor) 10 mg tablet Take by mouth. 04/10/2023 Active Start: 08-10-2021 take 10 mg by mouth at bedtime Simvastatin Active 10 MG PO AT BEDTIME August 10, 2021 1:00am sour rodriguez allergenic extract (3 sources) Non-Standardized Food Allergenic Extract, Non-Standardized Plant Allergenic Extract Start: 03-07-2023 Sour Rodriguez Extract (Tart Rodriguez Extract) 1,000 mg capsule Active MG PO March 07, 2023 12:00am 0.5 ml testosterone enanthate 200 mg/ml auto-injector (7 sources) Androgen Start: 07-18-2023 testosterone enanthate (Xyosted) 100 mg/0.5 mL auto-injector Indications: Hypogonadism in male Inject 1 Syringe (100 mg) under the skin every 7 days. 4 each 5 07/18/2023 Active Start: 04-24-2023 testosterone e nanthate (Xyosted) 100 mg/0.5 mL auto-injector Indications: Hypogonadism in male Inject 1 Syringe (100 mg) under the skin every 7 days. 4 each 3 04/24/2023 Active triamcinolone acetonide 5 mg/ml topical cream (14 sources) Corticosteroid Start: 01-16-2024 triamcinolone (Kenalog) 0.5 % cream Indications: Irritant contact dermatitis due to plants, except food Apply topically 3 times a day. 30 g 2 01/16/2024 Active Start: 02-16-2023 End: 02-22-2023 triamcinolone 0.1% topical o intment ; Apply topically to affected area 2-3 times a day as needed for itching/rash Quantity: 1 Refills: 0 Ordered: 16-Feb-2023 Adela Cheek Start: 16-Feb-2023 End: 22-Feb-2023 Generic Substitution Allowed Comments: For external use only. Start: 02-16-2023 triamcinolone (Kenalog) 0.1 % ointment Apply topically. 02/16/2023 Active Start: 05-22-2018 End: 07-06-2020 Triamcinolone Acetonide Disc ontinued 1 SPRAY NS AT BEDTIME May 22, 2018 1:00am July 06, 2020 8:21pm Comment on above: For external use onl y. Completed/Discontinued Medications Medication Drug Class(es) Dates Sig (Normalized) Sig (Original) docusate sodium 100 mg oral capsule (3 sources) Start: 8 End: 0 Docusate Sodium Discontinued 100 MG PO NEEDED May 22, 2018 1:00am July 06, 2020 8:22pm homatropine methylbromide 0.3 mg/ml / HYDROcodone bitartrate 1 mg/ml oral solution (1 source) Opioid Agonist, Cholinergic Muscarinic Agonist Start: 3 End: 3 hydrocodone-homatropin e 5-1.5 mg/5 mL syrup Take by mouth. 0 11/15/2022 06/10/2023 Discontinued (Med List Cleanup) hydroCHLOROthiazide 12.5 mg oral capsule (3 sources) Thiazide Diuretic Start: 8 End: 0 take 12.5 mg by mouth once daily Hydrochlorothiazide Discontinued 12.5 MG PO DAILY May 22, 2018 1:00am July 06, 2020 8:19pm hydroCHLOROthiazide 12.5 mg / losartan potassium 50 mg oral tablet (6 sources) Thiazide Diuretic, Angiotensin 2 Receptor Alexia Start: 3 End: 3 take 1 tablet by mouth once daily Losartan-Hydrochloroth iazide Discontinued 1 TABLET PO DAILY September 01, 2022 1:00am September 01, 2022 10:07am Start: 07-06-2020 End: 10-16-2020 take 1 tablet by mouth once daily Losartan-Hydrochlorothiazide Discontinue d 1 TABLET PO DAILY July 06, 2020 1:00am October 16, 2020 10:35am inositol 100 mg / niacin 400 mg oral capsule (3 sources) Nicotinic Acid Start: 07-06-2020 End: 07-15-2020 take 1 capsule by mouth once daily Niacin (Inositol Niacinate) (Niacin Flush Free) 400 mg niacin (500 mg) capsule Discontinued CAP PO daily July 06, 2020 1:00am July 15, 2020 4:53pm inulin 200 mg / lactobacillus rhamnosus gg [id number] unt oral capsule (3 sources) Start: 05-22-2018 End: 07-15-2020 Lactobac. Rhamnosus Gg-Inulin Discontinued 1 EACH PO DAILY May 22, 2018 1:00am July 15, 2020 4:20pm naproxen 375 mg delayed release oral tablet (3 sources) Nonsteroidal Anti-inflammatory Drug Start: 07-06-2020 End: 10-16-2020 take 1 tablet by mouth twice daily Naproxen (Ec-Naproxen) 375 mg tablet,delayed release (DR/EC) Discontinued 375 MG PO TWICE A DAY July 06, 2020 1:00am October 16, 2020 10:36am [place]-3 Fatty Acids-Fish Oil (3 sources) Start: 05-22-2018 End: 07-15-2020 [place]-3 Fatty Acids-Fish Oil Discontinued 1 EACH PO DAILY May 22, 2018 1:00am July 15, 2020 4:54pm polyethylene glycol 3350 35558 mg powder for oral solution (3 sources) Osmotic Laxative Start: 05-22-2018 End: 07-06-2020 take 17 g by mouth at bedtime Polyethylene Glycol 3350 Discontinued 17 GM PO AT BEDTIME May 22, 2018 1:00am July 06, 2020 8:20pm red yeast rice 600 mg oral capsule (3 sources) Start: 07-06-2020 End: 07-15-2020 take 600 mg by mouth once daily Red Yeast Rice Discontinued 600 MG PO DAILY July 06, 2020 1:00am July 15, 2020 4:54pm give with meal/snack Problems Active Problems Problem Classification Problem Date Documented Da te Episodic/Chronic Acute bronchitis (5 sources) Acute bronchitis; Translations: [Acute bronchitis, unspecified] Onset: 03-26-2025 06-10-2023 Episodic Disorders of lipid metabolism (8 sources) Hyperlipidemia; Translations: [Hyperlipidemia, unspecified] Onset: 03-05-2024 10-16-2020 Chronic Essential hypertension (8 sources) Essential hypertension; Translations: [Essential (primary) hypertension] Onset: 03-05-2024 03-07-2023 Chronic Hyperplasia of prostate (9 sources) Benign prostatic hypertrophy with outflow obstruction; Translations: [Benign prostatic hyperplasia with lower urinary tract symptoms] Onset: 04-24-2023 04-24-2023 Chronic Open wounds of extremities (1 source) Laceration of lower limb; Translations: [Multiple and unspecified open wound of lower limb, without mention of complication] 03-09-2021 Episodic Osteoporosis (1 source) Age-related osteoporosis without current pathological fracture; Translations: [Age-related osteoporosis w/o current pathological fracture] Onset: 04-03-2023 Chronic Other acquired deformities (7 sources) Contracture of elbow joint; Translations: [Contracture, unspecified elbow] Onset: 08-30-2016 04-14-2023 Chronic Other diseases of kidney and ureters (2 sources) Other obstructive and reflux uropathy; Translations: [Other obstructive and reflux uropathy] Onset: 04-24-2023 Episodic Other endocrine disorders (7 sources) Male hypogonadism; Translations: [Testicular hypofunction] Onset: 04-24-2023 04-24-2023 Chronic Other endocrine disorders (2 sources) Testicular hypofunction; Translations: [Testicular hypofunction] Onset: 04-24-2023 Chronic Other lower respiratory disease (2 sources) Cough; Translations: [Acute cough] 07-16-2024 Episodic Other male genital disorders (10 sources) Male erectile dysfunction, unspecified; Translations: [Impotence of organic origin] Onset: 04-24-2023 04-24-2023 Chronic Other non-traumatic joint disorders (4 sources) Pain in right shoulder; Translations: [Right shoulder pain, unspecified chronicity] Onset: 04-05-2023 Episodic Other screening for suspected conditions (not mental disorders or infectious disease) (6 sources) Encounter for screening for osteoporosis; Translations: [Other specified abnormal findings of blood chemistry] Onset: 04-03-2023 Episodic Other skin disorders (1 source) Rash and other nonspecific skin eruption; Translations: [Rash and other nonspecific skin eruption] Onset: 02-16-2023 Episodic Other upper respiratory disease (1 source) Other allergic rhinitis; Translations: [Other allergic rhinitis] Onset: 06-17-2024 Chronic Paz-; endo-; and myocarditis; cardiomyopathy (except that caused by tuberculosis or sexually transmitted disease) (7 sources) Cardiomyopathy; Translations: [Other cardiomyopathies] Onset: 03-05-2024 09-01-2022 Chronic Unclassified (2 sources) L LEG LACERATION 03-09-2021 Comment on above: L LEG LACERATION Unclassified (1 source) Laceration of left lower extremity, initial encounter 03-09-2021 Unclassified (2 sources) RASH 02-16-2023 Comment on above: RASH Unclassified (1 source) Acute cough; Translations: [Acute cough] Onset: 03-26-2025 Past or Other Problems Problem Classification Problem Date Documented Da te Episodic/Chronic Allergic reactions (4 sources) Contact dermatitis; Translations: [Contact dermatitis and other eczema, unspecified cause] Onset: 02-16-2023 02-16-2023 Episodic Bacterial infection; unspecified site (2 sources) Other specified bacterial agents as the cause of diseases classified elsewhere; Translations: [Other specified bacterial agents as the cause of diseases classified elsewhere] Onset: 07-16-2024 Episodic Genitourinary symptoms and ill-defined conditions (9 sources) Nocturia; Translations: [Nocturia] Onset: 04-24-2023 04-24-2023 Episodic Malaise and fatigue (8 sources) Fatigue; Translations: [Other fatigue] Onset: 01-19-2024 03-07-2023 Episodic Other non-traumatic joint disorders (7 sources) Chronic pain of right upper limb; Translations: [Pain in right shoulder] Onset: 04-10-2023 04-10-2023 Episodic Other upper respiratory infections (6 sources) Acute maxillary sinusitis; Translations: [Acute maxillary sinusitis, unspecified] Onset: 07-16-2024 06-10-2023 Episodic Spondylosis; intervertebral disc disorders; other back problems (2 sources) Radiculopathy, cervical region; Translations: [Radiculopathy, cervical region] Onset: 06-19-2024 Episodic Sprains and strains (12 sources) Strain of muscle(s) and tendon(s) of the rotator cuff of right shoulder, subsequent encounter; Translations: [Strain of musc/tend the rotator cuff of right shoulder, subs] Onset: 03-23-2023 04-10-2023 Episodic Unclassified (7 sources) Onset: 04-24-2023 Resolved: 07-18-2023 04-24-2023 Unclassified (1 source) Acute cough; Translations: [Acute cough] Onset: 03-26-2025 Results Test Name Value Interpretation Reference Range Facility XR CERVICAL SPINE 2-3 VIEWSo n 06-19-2024 XR CERVICAL SPINE 2-3 VIEWS Interpreted By: Luis Jang, STUDY: XR CERVICAL SPINE 2-3 VIEWS; ; 06/19/2024 2:02 pm INDICATION: Signs/Symptoms:RADICU LOPATHY, CERVICAL REGION. ,M54.12 Radiculopathy, cervical region COMPARISON: None. ACCESSION NUMBER(S): [id number] ORDERING CLINICIAN: SUSU HAWKINS FINDINGS: C-spine, three views There is multilevel disc space narrowing osteophytosis in the cervical spine, moderate at C5-C6 and C6-C7. There is no fracture. There is minimal retrolisthesis C3 on C4. IMPRESSION: Moderate multilevel spondylosis worse at the lower cervical spine. Minimal retrolisthesis C3 on C4 MACRO: None Signed by: Luis Jang 06/20/2024 7:57 PM Dictation workstation: [id number] [facility] CBC + DIFFon 06-17-2024 Baso # 0.03 x10EE3/UL Normal 0.00 - 0.10 [facility] Comment on above: Performed By: #### 2 06377 #### [facility],[address] [place], [place] [id number] Basophils/100 WBC (Bld) 0.4 % Normal 0.0 - 2.0 [facility] Comment on above: Performed By: #### 2 54679 #### [facility],[address] [place] [address] CBC + DIFF Normal [facility] Comment on above: Result Comment: CBC- COMPLETE BLOOD COUNT Performed By: #### 2 01719 #### [facility],[address] [place] [address] 77227 EO # 0.18 x10EE3/UL Normal 0.00 - 0.50 [facility] Comment on above: Performed By: #### 2 30331 #### [facility],[address] [place] [address] 10543 Eosinophils/100 WBC (Bld) 2.8 % Normal 0.0 - 7.0 [facility] Comment on above: Performed By: #### 2 55761 #### [facility],[address] [place] [address] Erythrocyte distribution width (RBC) [Ratio] 12.5 % Normal 12.0 - 15.6 [facility] Comment on above: Performed By: #### 2 77057 #### [facility],[address] [place] [address] 87019 Hematocrit (Bld) [Volume fraction] 43.1 % Normal 40.0 - 52.0 [facility] Comment on above: Performed By: #### 2 95961 #### [facility],[address] [place] [address] 14285 Hemoglobin (Bld) [Mass/Vol] 14.5 g/dL Normal 13.0 - 17.5 [facility] Comment on above: Performed By: #### 2 69504 #### [facility],[address] [place] [address] 18334 Lymph # 2.09 x10EE3/UL Normal 0.80 - 2.80 [facility] Comment on above: Performed By: #### 2 79435 #### [facility],[address] [place] [address] 44437 Lymphocytes/100 WBC (Bld) 32.3 % Normal 20.0 - 45.0 [facility] Comment on above: Performed By: #### 2 43638 #### [facility],[address] [place] [address] 07656 MANUAL DIFF N/A Normal [facility] Comment on above: Performed By: #### 2 53616 #### [facility],[address] [place] [address] 13509 MCH (RBC) [Entitic mass] 32 pg Normal 27 - 33 [facility] Comment on above: Performed By: #### 2 74975 #### [facility],[address] [place] [address] 45611 MCHC 34 X10 3 Normal 32 - 36 [facility] Comment on above: Performed By: #### 2 67481 #### [facility],[address] [place] [address] 05106 MCV (RBC) [Entitic vol] 96 fL Normal 81 - 98 [facility] Comment on above: Performed By: #### 2 75159 #### [facility],[address] [place] [address] 47798 Cedar # 0.57 x10EE3/UL Normal 0.20 - 1.00 [facility] Comment on above: Performed By: #### 2 43151 #### [facility],[address] [place] [address] 36972 MONOS % 8.8 % Normal 0.0 - 10.0 [facility] Comment on above: Performed By: #### 2 59456 #### [facility],[address] [place] [address] 31150 Morphology Sebastián (Bld) [Interp] N/A Normal [facility] Comment on above: Performed By: #### 2 52614 #### [facility],[address] [place] [address] 52979 Neut # 3.59 x10EE3/UL Normal 1.50 - 7.10 [facility] Comment on above: Performed By: #### 2 18774 #### [facility],[address] [place] [address] 48247 Neutrophils/100 WBC (Bld) 55.6 % Normal 46.0 - 76.0 [facility] Comment on above: Performed By: #### 2 83373 #### [facility],[address] [place] [address] 02608 PLATELET 234 x10EE3/UL Normal 150 - 450 [facility] Comment on above: Performed By: #### 2 46479 #### [facility],[address] [place] [address] 16247 Platelet mean volume (Bld) [Entitic vol] 7.9 fL Normal 6.4 - 10.5 [facility] Comment on above: Result Comment: AUTO MATED DIFFERENTIAL Performed By: #### 2 93244 #### [facility],[address] [place] [address] 47964 RBC 4.48 x 10EE6/UL Low 4.50 - 6.00 [facility] Comment on above: Performed By: #### 2 71138 #### [facility],[address] [place] [address] 14321 WBC 6.5 x 10EE3/UL Normal 4.5 - 10.8 [facility] Comment on above: Performed By: #### 2 38977 #### [facility],[address] [place] [address] 82390 CMP with eGFRon 06-17-2024 AGE 58 years Normal [facility] Comment on above: Performed By: #### 2 25015 #### [facility],[address] [place] [address] 30925 Albumin [Mass/Vol] 4.0 g/dL Normal 3.4 - 5.0 [facility] Comment on above: Performed By: #### 2 19767 #### [facility],[address] [place] [address] 59925 Albumin/Globulin [Mass ratio] 1.1 {ratio} Normal 0.9 - 1.6 [facility] Comment on above: Performed By: #### 2 32585 #### [facility],[address] [place] [address] 98746 ALK PHOS 56 U/L Normal 46 - 116 [facility] Comment on above: Performed By: #### 2 49212 #### [facility],[address] [place] [address] 43855 ALT [Catalytic activity/Vol] 28 U/L Normal 16 - 63 [facility] Comment on above: Performed By: #### 2 04047 #### [facility],[address] [place] [address] 94395 Anion gap [Moles/Vol] 16 mmol/L Normal 10 - 20 [facility] Comment on above: Performed By: #### 2 13201 #### [facility],[address] [place] [address] 76461 AST [Catalytic activity/Vol] 26 U/L Normal 15 - 37 [facility] Comment on above: Performed By: #### 2 10428 #### [facility],[address] [place] [address] 59906 B/C RATIO 17 ratio Normal 0 - 30 [facility] Comment on above: Performed By: #### 2 05247 #### [facility],[address] [place] [address] 32698 Bilirubin [Mass/Vol] 1.0 mg/dL Normal 0.2 - 1.0 [facility] Comment on above: Performed By: #### 2 37596 #### [facility],[address] [place] [address] 96616 Calcium [Mass/Vol] 9.1 mg/dL Normal 8.5 - 10.1 [facility] Comment on above: Performed By: #### 2 45420 #### [facility],[address] [place] [address] 05677 Chloride [Moles/Vol] 103 mmol/L Normal 98 - 107 [facility] Comment on above: Performed By: #### 2 32566 #### [facility],[address] [place] [address] 64994 CMP with eGFR Normal [facility] Comment on above: Result Comment: COMP REHENSIVE METABOLIC PANEL Performed By: #### 2 91141 #### [facility],[address] [place] [address] 96933 CO2 [Moles/Vol] 25.4 mmol/L Normal 21.0 - 32.0 [facility] Comment on above: Performed By: #### 2 65143 #### [facility],[address] [place] [address] 82880 Creatinine [Mass/Vol] 0.93 mg/dL Normal 0.70 - 1.30 [facility] Comment on above: Performed By: #### 2 13670 #### [facility],[address] [place] [address] 69597 GFR/1.73 sq M.predicted among non-blacks MDRD (S/P/Bld) [Vol rate/Area] mL/min/{1.73_m2} Normal 60 - 999 [facility] Comment on above: Performed By: #### 2 96886 #### [facility],[address] [place] [address] Result Comment: ACCO RDING TO THE NATIONAL KIDNEY DISEASE EDUCATION PROGRAM(NKDE), A NORMAL eGFR IS A VALUE GREATER THAN OR EQUAL TO 60 ML/MIN/1.73 SQ METERS. CHRONIC KIDNEY DISEASE: <60mL/MIN/1.73 SQ METERS KIDNEY FAILURE: <15mL/MIN/1.73 SQ METERS THIS TEST SHOULD ONLY BE USED FOR PATIENTS 18 YEARS OF AGE AND OLDER. Globulin (S) [Mass/Vol] 3.5 g/dL Normal 1.5 - 3.8 [facility] Comment on above: Performed By: #### 2 19932 #### [place] [address] Glucose [Mass/Vol] 95 mg/dL Normal 74 - 106 [facility] Comment on above: Performed By: #### 2 39034 #### [address] [address] Potassium [Moles/Vol] 4.4 mmol/L Normal 3.5 - 5.1 [facility] Comment on above: Performed By: #### 2 23814 #### [place] [id number] Protein [Mass/Vol] 7.5 g/dL Normal 6.4 - 8.2 [facility] Comment on above: Performed By: #### 2 37983 #### [address] [address] Sodium [Moles/Vol] 140 mmol/L Normal 136 - 145 [facility] Comment on above: Performed By: #### 2 56928 #### [address] [address] Urea nitrogen [Mass/Vol] 16 mg/dL Normal 7 - 18 [facility] Comment on above: Performed By: #### 2 46432 #### [facility],[address] [place] [address] 44880 LIPID PROFILEon 06-17-2024 Cholesterol [Mass/Vol] 186 mg/dL Normal 0 - 240 [facility] Comment on above: Performed By: #### 2 43117 #### [facility],[address] [place] [address] 14444 Cholesterol in HDL [Mass/Vol] 49 mg/dL Normal 40 - 60 [facility] Comment on above: Performed By: #### 2 86364 #### [facility],[address] [place] [address] 15174 Cholesterol in LDL [Mass/Vol] 108 mg/dL Normal 0 - 129 [facility] Comment on above: Performed By: #### 2 03273 #### [facility],[address] [place] [address] 62238 Cholesterol.total/Chol esterol in HDL [Mass ratio] 3.8 {ratio} Normal 0.0 - 5.0 [facility] Comment on above: Performed By: #### 2 02503 #### [facility],[address] [place] [address] 47643 Lipid 1996 panel Normal [facility] Comment on above: Result Comment: LIPI D PROFILE Performed By: #### 2 68147 #### [facility],[address] [place] [address] 45862 Triglyceride [Mass/Vol] 145 mg/dL Normal 0 - 150 [facility] Comment on above: Performed By: #### 2 87214 #### [facility],[address] [place] [address] 69423 CBC W/Diff, Automatedon 08- Absolute Lymph 1.99 X10 3/uL Normal 0.83-4.51 [facility] Comment on above: Performed By: #### L 100.0100, L500.4100, L500.4050 #### [facility] [address] [place], [address] Absolute Neut 3.1 X10 3/uL Normal 2.0-7.7 [facility] Comment on above: Performed By: #### L 100.0100, L500.4100, L500.4050 #### [facility] [address] [place], [address] Basophils/100 WBC (Bld) 0.6 % Normal 0-1 [facility] Comment on above: Performed By: #### L 100.0100, L500.4100, L500.4050 #### [facility] [address] [place], [address] Eosinophils/100 WBC (Bld) 2.4 % Normal 0-5 [facility] Comment on above: Performed By: #### L 100.0100, L500.4100, L500.4050 #### [facility] [address] [place], [address] Erythrocyte distribution width (RBC) [Ratio] 12.8 % Normal 11.6-14.6 [facility] Comment on above: Performed By: #### L 100.0100, L500.4100, L500.4050 #### [facility] [address] [place], [address] Hematocrit (Bld) [Volume fraction] 42.1 % Normal 40-54 [facility] Comment on above: Performed By: #### L 100.0100, L500.4100, L500.4050 #### [facility] [address] [place], [address] Hemoglobin (Bld) [Mass/Vol] 13.8 g/dL Normal 13.0-16.5 [facility] Comment on above: Performed By: #### L 100.0100, L500.4100, L500.4050 #### [facility] [address] [place], [address] IG% 0.300 Normal 0.0-0.9 [facility] Comment on above: Result Comment: IG% - Immature Granulocytes (promyelocytes, myelocytes and metamyelocytes) > 1% indicates that a LEFT SHIFT is Present. Performed By: #### L 100.0100, L500.4100, L500.4050 #### [facility] [address] [place], [address] Lymphocytes/100 WBC (Bld) 31.6 % Normal 19-41 [facility] Comment on above: Performed By: #### L 100.0100, L500.4100, L500.4050 #### [facility] [address] [place], [address] MCH (RBC) [Entitic mass] 32.0 pg Normal 27.0-32.0 [facility] Comment on above: Performed By: #### L 100.0100, L500.4100, L500.4050 #### [facility] [address] [place], [address] MCHC (RBC) [Mass/Vol] 32.8 g/dL Normal 32-36 [facility] Comment on above: Performed By: #### L 100.0100, L500.4100, L500.4050 #### [facility] [address] [place], [address] MCV (RBC) [Entitic vol] 97.7 fL High 80-94 [facility] Comment on above: Performed By: #### L 100.0100, L500.4100, L500.4050 #### [facility] [address] [place], [address] Monocytes/100 WBC (Bld) 15.9 % High 0-10 [facility] Comment on above: Performed By: #### L 100.0100, L500.4100, L500.4050 #### [facility] [address] [place], [address] Neutrophils/100 WBC (Bld) 49.2 % Normal 47-70 [facility] Comment on above: Performed By: #### L 100.0100, L500.4100, L500.4050 #### [facility] [address] [place], [address] Nucleated RBC (Bld) [#/Vol] 0 10*3/uL Normal 0-5 [facility] Comment on above: Performed By: #### L 100.0100, L500.4100, L500.4050 #### [facility] [address] [place], [address] Platelet mean volume (Bld) [Entitic vol] 9.7 fL Normal 6.2-12.0 [facility] Comment on above: Performed By: #### L 100.0100, L500.4100, L500.4050 #### [facility] [address] [place], [address] Platelets (Bld) [#/Vol] 233 10*3/uL Normal 150-450 [facility] Comment on above: Performed By: #### L 100.0100, L500.4100, L500.4050 #### [facility] [address] [place], [address] RBC (Bld) [#/Vol] 4.31 10*6/uL Low 4.6-6.2 [facility] Comment on above: Performed By: #### L 100.0100, L500.4100, L500.4050 #### [facility] [address] [place], [address] RDW SD 45.9 fl High 35.1-43.9 [facility] Comment on above: Performed By: #### L 100.0100, L500.4100, L500.4050 #### [facility] [address] [place], [address] WBC (Bld) [#/Vol] 6.3 10*3/uL Normal 4.4-11.0 [facility] Comment on above: Performed By: #### L 100.0100, L500.4100, L500.4050 #### [facility] [address] [place], [address] Cardiology Visit Reporton Cardiology Visit Report [facility] [address] [place], [place] [address] OFFICE VISIT Date of Service: 03/05/24 MR#: [id number] Acct: [id number] Name: TOSIN MENDEZ Rep #: [id number] : 1965 Provider: DIRK talamantes Age/Sex: 58/M Location: [facility] Status: Signed HPI HPI History of Present Illness Details: Pleasant 58-year-old male with a history of hypertension. He had initially presented with dyspnea on exertion for a few months and as part of his work-up, an echocardiogram was performed with demonstrated global reduction left ventricular systolic function estimated to be 40%. Impaired relaxation was noted and he also had mild mitral regurgitation and mitral valve prolapse. He was placed on medication after he had lost some weight. Stress test was noted to be normal at a high metabolic workload. His ejection fraction improved to 55% from an echocardiogram from January 2021 with mild concentric hypertrophy. He denies chest, arm, jaw, or neck discomfort. He denies palpitations. He states bilateral lower extremity edema that is resolved today. This was a three month issue. He denies claudication. He states shortness of breath with activity that he attributes to weight gain. He denies shortness of breath at rest, orthopnea, or PND. He denies chronic cough. He denies significant, sudden weight gain. He denies lightheadedness, dizziness, near-syncope, or syncope. He denies blood in urine, blood in stool, or epistaxis. He denies fever or chills. He denies myalgia. He continues with fatigue. He denies any specific exercise program. Intake Vital Signs 03/07/23 08:27 03/20/23 06:05 03/05/24 09:47 Height 6 ft 6 ft 6 ft Weight: 199 lb BMI 26.9 BP 109/70 Blood Pressure Location Lt brachial Position Sitting Respiration 16 Pulse 62 Pulse Source NIBP Intake Visit Reasons: 1 Y FU Inspector Advanced Composite Required: No Is patient in pain?: No Allergies No Known Allergies Allergy (Verified 03/05/24 09:54) Medications ???Medication ???Instructions ???Recorded ???Confirmed ???Type multivitamin 1 ea PO DAILY 05/22/18 03/05/24 History fluticasone propionate 50 2 spray intranasal PRN allergies 07/06/20 03/05/24 History mcg/actuation nasal spray,suspension ascorbic acid (vitamin C) 1,000 mg 1,000 mg PO DAILY 10/16/20 03/05/24 History tablet aspirin 81 mg tablet,delayed 81 mg PO DAILY 09/01/22 03/05/24 History release (Adult Low Dose Aspirin) cinnamon bark 500 mg capsule 500 mg PO DAILY 03/06/23 03/05/24 History (Cinnamon) cod liver oil 1 cap PO DAILY 03/06/23 03/05/24 History Lactobacillus acidophilus 20 20,000 mmu cells PO DAILY 03/07/23 03/05/24 History billion cell capsule (Florajen Acidophilus) famotidine 20 mg tablet 20 mg PO DAILY 03/07/23 03/05/24 History acetaminophen 500 mg capsule 1,000 mg PO TID pain 03/05/24 03/05/24 History carvedilol 12.5 mg tablet 12.5 mg PO BID #180 tabs 03/05/24 03/05/24 Rx cetirizine 10 mg tablet (24Hour 10 mg PO DAILY allergy symptoms 03/05/24 03/05/24 History Allergy) losartan 100 mg tablet 100 mg PO DAILY #90 tabs 03/05/24 03/05/24 Rx simvastatin 10 mg tablet 10 mg PO QHS #90 tabs 03/05/24 03/05/24 Rx sour rodriguez extract 1,000 mg 1,000 mg PO DAILY 03/05/24 03/05/24 History capsule (Tart Rodriguez Extract) Ejection fraction %: 56 Have you fallen in the past year?: No PFSH Medical History Wears glasses Alcohol use History of steroid therapy High cholesterol Gastric reflux Chewing tobacco nicotine dependence in remission History of pain when walking History of stress test History of echocardiogram Cardiology follow-up encounter Non-ischemic cardiomyopathy Environmental allergies Erectile dysfunction Arthritis IBS (irritable bowel syndrome) Obesity Essential (primary) hypertension Hyperlipidemia Surgical History History of shoulder surgery ( 03/2023) Hx of elbow surgery History of arthroscopic procedure on shoulder History of repair of ACL Family History Father Heart disease Mother Diabetes Social History (Updated 03/05/24 @ 10:08 by Lucia Madrigal) how long ago did patient quit smoking: Chewing tobacco stopped 6 years ago alcohol intake: current alcohol intake frequency: a few times a week details: > 7 drinks a week substance use type: does not use caffeine: Yes Type: coffee Number of servings: 3 ROS Const Const: Positive for other (Decreased energy); Negative for fatigue or weakness Eyes Eyes: Negative for change in vision ENT ENT: Negative for dizziness, Nosebleed/epistaxis or balance problems Cardio Chest Pain: No Palpitations: No Edema: None Muscle aches with walki (more content not included)... Normal [facility] Comprehensive Metabolic Prof ilon 03-05-2024 Albumin [Mass/Vol] 3.9 g/dL Normal 3.2-5.0 [facility] Comment on above: Performed By: #### L 100.0100, L500.4100, L500.4050 #### [facility] [address] [place], [address] Albumin/Globulin [Mass ratio] 0.9 {ratio} Normal 0.9-2.4 [facility] Comment on above: Performed By: #### L 100.0100, L500.4100, L500.4050 #### [facility] [address] [place], [address] ALK P 58 U/L Normal 45-117 [facility] Comment on above: Performed By: #### L 100.0100, L500.4100, L500.4050 #### [facility] [address] [place], [address] ALT [Catalytic activity/Vol] 29 U/L Normal 16-61 [facility] Comment on above: Performed By: #### L 100.0100, L500.4100, L500.4050 #### [facility] [address] [place], [address] AST [Catalytic activity/Vol] 22 U/L Normal 15-37 [facility] Comment on above: Performed By: #### L 100.0100, L500.4100, L500.4050 #### [facility] [address] [place], [address] Bilirubin [Mass/Vol] 0.50 mg/dL Normal 0.20-1.00 [facility] Comment on above: Result Comment: For patients on eltrombopag therapy, use of Dimension [place] TBIL is not recommended. Performed By: #### L 100.0100, L500.4100, L500.4050 #### [facility] [address] [place], [address] BUN/CRE 20.3 RATIO High 10-20 [facility] Comment on above: Performed By: #### L 100.0100, L500.4100, L500.4050 #### [facility] [address] [place], [address] CA,Total 9.8 mg/dL Normal 8.5-10.1 [facility] Comment on above: Performed By: #### L 100.0100, L500.4100, L500.4050 #### [facility] [address] [place], [address] Chloride [Moles/Vol] 106 mmol/L Normal 98-107 [facility] Comment on above: Performed By: #### L 100.0100, L500.4100, L500.4050 #### [facility] [address] [place], [address] CO2 [Moles/Vol] 28.0 mmol/L Normal 21.0-32.0 [facility] Comment on above: Performed By: #### L 100.0100, L500.4100, L500.4050 #### [facility] [address] [place], [address] Creatinine [Mass/Vol] 0.98 mg/dL Normal 0.70-1.30 [facility] Comment on above: Result Comment: The validity of the calculated GFR GFRAA in patients over 70 years has not been determined. Clinical correlation is essential. Performed By: #### L 100.0100, L500.4100, L500.4050 #### [facility] [address] [place], [address] EST GFR - AA 101 mL/min Normal >60 [facility] Comment on above: Result Comment: Afri can [place] GFR Calc Performed By: #### L 100.0100, L500.4100, L500.4050 #### [facility] [address] [place], [address] GAP 6 Normal 5-15 [facility] Comment on above: Performed By: #### L 100.0100, L500.4100, L500.4050 #### [facility] [address] [place], [address] GFR/1.73 sq M.predicted among non-blacks MDRD (S/P/Bld) [Vol rate/Area] 83 mL/min/{1.73_m2} Normal >60 [facility] Comment on above: Result Comment: Non- GFR Calc Performed By: #### L 100.0100, L500.4100, L500.4050 #### [facility] [address] [place], [address] Globulin (S) [Mass/Vol] 4.2 g/dL Normal 2.2-4.2 [facility] Comment on above: Performed By: #### L 100.0100, L500.4100, L500.4050 #### [facility] [address] [place], [address] Glucose [Mass/Vol] 81 mg/dL Normal 74-106 [facility] Comment on above: Performed By: #### L 100.0100, L500.4100, L500.4050 #### [facility] [address] [place], [address] Potassium [Moles/Vol] 4.3 mmol/L Normal 3.5-5.1 [facility] Comment on above: Performed By: #### L 100.0100, L500.4100, L500.4050 #### [facility] [address] [place], [address] Sodium [Moles/Vol] 140 mmol/L Normal 136-145 [facility] Comment on above: Performed By: #### L 100.0100, L500.4100, L500.4050 #### [facility] [address] [place], [address] T PROT 8.1 g/dL Normal 6.4-8.2 [facility] Comment on above: Performed By: #### L 100.0100, L500.4100, L500.4050 #### [facility] [address] [place], [address] Urea nitrogen [Mass/Vol] 20 mg/dL High 7-18 [facility] Comment on above: Performed By: #### L 100.0100, L500.4100, L500.4050 #### [facility] [address] [place], [address] Lipid Profileon 03-05-2024 Cholesterol [Mass/Vol] 162 mg/dL Normal 200 [facility] Comment on above: Result Comment: <200 mg/dL Desirable 200-240 mg/dL Borderline >240 mg/dL High Risk Performed By: #### L 100.0100, L500.4100, L500.4050 #### [facility] [address] [place], [address] Cholesterol in HDL [Mass/Vol] 43 mg/dL Normal [facility] Comment on above: Result Comment: The drugs N-Acetylcysteine and Metamizole may falsely depress this assay. Reference Range HDL <40 mg/dL Low HDL Cholesterol HDL >or= 60 mg/dL High HDL Cholesterol Performed By: #### L 100.0100, L500.4100, L500.4050 #### [facility] [address] [place], [address] Cholesterol in LDL [Mass/Vol] 77 mg/dL Normal 0-130 [facility] Comment on above: Performed By: #### L 100.0100, L500.4100, L500.4050 #### [facility] [address] [place], [address] Cholesterol in VLDL [Mass/Vol] 42 mg/dL High 5-40 [facility] Comment on above: Performed By: #### L 100.0100, L500.4100, L500.4050 #### [facility] [address] [place], [address] Triglyceride [Mass/Vol] 212 mg/dL High [facility] Comment on above: Result Comment: The drugs N-Acetylcysteine and Metamizole may falsely depress this assay. Serum Triglycerides Reference Interval Normal <150 mg/dL Borderline high 150 - 199 mg/dL High 200 - 499 mg/dL Very High > or = 500 mg/dL Performed By: #### L 100.0100, L500.4100, L500.4050 #### [facility] [address] [place], [address] TESTOSTERONE [CCL]on 024 Testosterone [Mass/Vol] 289 ng/dL Normal 193-824 [facility] Comment on above: Result Comment: A te stosterone level in the 193-320 ng/dL range with associated clinical symptoms is considered low and may indicate hypogonadism (from [facility] 2010 [id number]). Results >320 ng/dL are considered normal. [facility] [address] [place] [address] Alex Alba III, M.D. [id number] Performed By: #### 2 [address] #### [address] [address] HEMATOCRITon 07-13-2023 Hematocrit (Bld) [Volume fraction] 44.0 % Normal 40.0 - 52.0 [facility] Comment on above: Result Comment: {HH] Performed By: #### 2 12078 #### [facility],[address] [place] [address] HEMOGLOBINon 07-13-2023 Hemoglobin (Bld) [Mass/Vol] 14.3 g/dL Normal 13.0 - 17.5 [facility] Comment on above: Result Comment: {HH] Performed By: #### 2 82243 #### [facility],[address] [place] [address] PT Progress Noteon 3 PT Progress Note Therapy Diagnosis Assessed Right shoulder pain, unspecified chronicity (719.41) (M25.511) Strain of musc/tend the rotator cuff of right shoulder, subs (V58.89,840.9) (S46.011D) Plan Goals: Goals set and discussed today. LTG's: 1) Improve R shoulder strength from to >= 4+/5 throughout in order to facilitate ability to reach overhead and lift objects. 4-6 weeks 2) Improve R shoulder PROM from 120 deg flex, 110 deg abd, 30 deg ER and 40 deg IR to >= 165 deg flex/abd and 80 deg ER/IR in order to better reach overhead or behind back. 4-6 weeks 3) Improve R shoulder pain from 9/10 to <= 3/10 with activity in order to improve QOL. 4-6 weeks 4) Improve quick dash score by >= 5 points in order to improve QOL. 4-6 weeks 5) The pt will improve ability to raise arm/shoulder overhead, reach at various angles, lift/carry objects, dress upper body, overhead activity and return to exercise and work around the home or on the job without significant limitation. 4-[address]) Pt/caregiver will be I and consistent with HEP with use of handout as needed in order to maximize shoulder strength and ROM/flexibility. 2-3 weeks Planned interventions include: cryotherapy, education/instruction , home program, hot pack, manual therapy and therapeutic exercises. Frequency and duration: 2-3 time(s) a week, for 6 weeks, for 12-18 visits. Potential to achieve rehab goals is good Plan to complete PROM/STM. JA . Progress with POC, as tolerated. Assessment Patient identified by name and date of . Phoned MD this date regarding protocol and they are supposed to be faxing. Found generic protocol in patient's folder that he brought today that states PROM for 6 weeks. Completed gentle PROM to passive flexion in 50 degrees. Tenderness along the bicep muscle belly. Patient was able to complete today's treatment with some difficulty. Adult Risk Screening There are no spiritual/cultural practices/values/need s that are important to know Initial Fall Risk Screening: TOSIN has not fallen in the last 6 months. TOSIN does not have a fear of falling. He does not need assistance with sitting, standing or walking. Does not need assistance walking in his home. He does not need assistance in an unfamiliar setting. The patient is not using an assistive device. Fall Risk Screening: patient is not considered a fall risk. Please identify location of pain: R Shoulder (Pain Range 3-9/10). Pain Quality: aching and tightness. The pain makes it hard for the patient to do these things: exercise, work and house work. Living Will. Living Will: Living will on file. Healthcare POA: Health care proxy on file. Declaration of Mental Health Treatment: No mental health treatment on file. Depression/Suicide Screening: During the past 2 weeks, the patient has not felt down, depressed or hopeless. During the past 2 weeks, the patient has not felt little interest or pleasure in doing things. Insurance Insurance reviewed Visit number: 2 [facility] Comm Plan Ins: Medical Necessity. Eval only. Needs Sent Out For Auth. Dx: R RTC muscle/tendon strain S46.011D, R shoulder pain M25.511, s/p R RTC repair with subaccromial decompression and distal clavicle excision on 03/20/2023 Evaluating PT: Vishal Hurt This patient?s care and PT of record will be transferred from Vishal Hurt PT, MPT to Lisa Alexis PT effective as of 03/27/2023. 2019 Subjective Patient reports:. 4/10 pain currently. Took pain med prior to PT today. Had F/U with MD and they were going to fax protocol instead of sending it with him. States that he was honest with MD that he is not wearing his splint like he should. Precautions: Fall Risk: none S/P R RTC repair with subaccromial decompression and distal clavicle excision on 03/20/2023. 6 Weeks post op on 04/24/2023. Treatment Time in clinic started at 10:00 Time in clinic ended at 10:45 Total time in clinic is 45 minutes. Total timed code time is 40 minutes. Manual Therapy (29290): timed minutes 40, units 3 . PROM R Shoulder all planes 15 min STM to scap border 15' STM to distal and prox bicep 10 Pendulums x 10 . 'Scores and Scales' Signatures Electronically signed by : Sheree Hodges [employer] TEAM MEMBER; Apr 05 2023 11:00AM EST (Author) Electronically signed by : Lisa Alexis, PT; Apr 07 2023 4:47PM EST Normal [facility] BONE DENSITY, DEXA 1 OR MORE SITES: AXIAL SKELETONon 04-03-2023 BONE DENSITY, DEXA 1 OR MORE SITES: AXIAL SKELETON Patient Name: TOSIN MENDEZ STUDY: BONE DENSITY, DEXA 1 OR MORE SITES: AXIAL SKELET04/03/2023 10:54 am INDICATION: osteoporosis. The patient is a 57 y/o year old M. COMPARISON: None. ACCESSION NUMBER(S): [id number] ORDERING CLINICIAN: SUSU HAWKINS TECHNIQUE: BONE DENSITY, DEXA 1 OR MORE SITES: AXIAL SKELETN FINDINGS: SPINE L1-L4 Bone Mineral Density: 1.298 T-Score 0.8 Z-Score 0.8 Bone Mineral Density change vs baseline: Not reported Bone Mineral Density change vs previous: Not reported LEFT FEMUR -TOTAL Bone Mineral Density: 0.979 T-Score -0.2 Z-Score -0.4 Bone Mineral Density change vs baseline: Not reported Bone Mineral Density change vs previous: Not reported LEFT FEMUR -NECK Bone Mineral Density: 0.931 T-Score -0.8 Z-Score -0.2 RIGHT FEMUR -TOTAL Bone Mineral Density: 0.984 T-Score -0.2 Z-Score -0.4 Bone Mineral Density change vs baseline: Not reported Bone Mineral Density change vs previous: Not reported RIGHT FEMUR -NECK Bone Mineral Density: 0.936 T-Score -0.7 Z-Score -0.2 World Health Organization (WHO) criteria for post-menopausal, Women: Normal: T-score at or above -1 SD Osteopenia: T-score between -1 and -2.5 SD Osteoporosis: T-score at or below -2.5 SD 10-year Fracture Risk: Major Osteoporotic Fracture 4.9 Hip Fracture 0.4 Note: If no FRAX score is reported, it is because: Some T-score for Spine Total or Hip Total or Femoral Neck at or below -2.5 This exam was performed at [facility] on a [facility] Advanced Dexa Unit. IMPRESSION: DEXA: According to World Health Organization criteria, classification is normal. Followup recommended in 2 years or sooner as clinically warranted. All images and detailed analysis are available on the Radiology PACS. MACRO: None Electronically signed by: SHERMAN MARIN MD [facility] PT Progress Noteon 3 PT Progress Note Therapy Diagnosis Assessed Right shoulder pain, unspecified chronicity (719.41) (M25.511) Strain of musc/tend the rotator cuff of right shoulder, subs (V58.89,840.9) (S46.011D) Plan Goals: Goals set and discussed today. LTG's: 1) Improve R shoulder strength from to >= 4+/5 throughout in order to facilitate ability to reach overhead and lift objects. 4-6 weeks 2) Improve R shoulder PROM from 120 deg flex, 110 deg abd, 30 deg ER and 40 deg IR to >= 165 deg flex/abd and 80 deg ER/IR in order to better reach overhead or behind back. 4-6 weeks 3) Improve R shoulder pain from 9/10 to <= 3/10 with activity in order to improve QOL. 4-6 weeks 4) Improve quick dash score by >= 5 points in order to improve QOL. 4-6 weeks 5) The pt will improve ability to raise arm/shoulder overhead, reach at various angles, lift/carry objects, dress upper body, overhead activity and return to exercise and work around the home or on the job without significant limitation. 4-[address]) Pt/caregiver will be I and consistent with HEP with use of handout as needed in order to maximize shoulder strength and ROM/flexibility. 2-3 weeks Planned interventions include: cryotherapy, education/instruction , home program, hot pack, manual therapy and therapeutic exercises. Frequency and duration: 2-3 time(s) a week, for 6 weeks, for 12-18 visits. Potential to achieve rehab goals is good Plan to continue with PROM and STM at this time. F/U with PT regarding protocol. JA . Progress with POC, as tolerated. Assessment Patient identified by name and date of . Spoke with evaluating PT regarding protocol and he states that he called MD office to try to get one but has not heard back. Advised to focus on PROM. Pain with passive flexion to 50 degrees. Scapular tightness present, so STW was completed to help with myofascial restrictions in that region. Patient was able to complete today's treatment with some difficulty. Adult Risk Screening There are no spiritual/cultural practices/values/need s that are important to know Initial Fall Risk Screening: TOSIN has not fallen in the last 6 months. TOSIN does not have a fear of falling. He does not need assistance with sitting, standing or walking. Does not need assistance walking in his home. He does not need assistance in an unfamiliar setting. The patient is not using an assistive device. Fall Risk Screening: patient is not considered a fall risk. Please identify location of pain: R Shoulder (Pain Range 3-9/10). Pain Quality: aching and tightness. The pain makes it hard for the patient to do these things: exercise, work and house work. Living Will. Living Will: Living will on file. Healthcare POA: Health care proxy on file. Declaration of Mental Health Treatment: No mental health treatment on file. Depression/Suicide Screening: During the past 2 weeks, the patient has not felt down, depressed or hopeless. During the past 2 weeks, the patient has not felt little interest or pleasure in doing things. Insurance Insurance reviewed Visit number: 2 [facility] Comm Plan Ins: Medical Necessity. Eval only. Needs Sent Out For Auth. Dx: R RTC muscle/tendon strain S46.011D, R shoulder pain M25.511, s/p R RTC repair with subaccromial decompression and distal clavicle excision on 03/20/2023 Evaluating PT: Vishal Hurt This patient?s care and PT of record will be transferred from Vishal Hurt PT, MPT to Lisa Alexis PT effective as of 03/27/2023. 2020 Subjective Patient reports:. Patient reports that he has F/U with MD tomorrow. Patient will ask about protocol when at visit and will bring with him in case PT does not get it first. Notes that he has been trying to do HEP as instructed at eval. Notes that stitches are still intact and he thought they would dissolve. Precautions: Fall Risk: none S/P R RTC repair with subaccromial decompression and distal clavicle excision on 03/20/2023. 6 Weeks post op on 04/24/2023. Treatment Time in clinic started at 3:30 Time in clinic ended at 4:15 Total time in clinic is 45 minutes. Total timed code time is 40 minutes. Manual Therapy (15944): timed minutes 40, units 3 . PROM R Shoulder all planes 15 min STM to scap border 15' STM to distal and prox bicep 10 Pendulums x 10 . 'Scores and Scales' Signatures Electronically signed by : Sheree Hodges [employer] TE[employer] MEMBER; Apr 03 2023 4:30PM EST (Author) Electronically signed by : Lisa Alexis PT; Apr 03 2023 5:44PM EST Normal [facility] Bone Density, Dexa 1 or More Siteson 04-03-2023 DXA Bone [Mass/Area] Bone density Please click on the link to view the study images [facility] Work Phone: DXA Bone [Mass/Area] Bone density [facility] Work Phone: PT Initial Evaluationon 03-10 PT Initial Evaluation Therapy Diagnosis Assessed Strain of musc/tend the rotator cuff of right shoulder, subs (V58.89,840.9) (S46.011D) Right shoulder pain, unspecified chronicity (719.41) (M25.511) Plan of Care Goals: Goals set and discussed today. LTG's: 1) Improve R shoulder strength from to >= 4+/5 throughout in order to facilitate ability to reach overhead and lift objects. 4-6 weeks 2) Improve R shoulder PROM from 120 deg flex, 110 deg abd, 30 deg ER and 40 deg IR to >= 165 deg flex/abd and 80 deg ER/IR in order to better reach overhead or behind back. 4-6 weeks 3) Improve R shoulder pain from 9/10 to <= 3/10 with activity in order to improve QOL. 4-6 weeks 4) Improve quick dash score by >= 5 points in order to improve QOL. 4-6 weeks 5) The pt will improve ability to raise arm/shoulder overhead, reach at various angles, lift/carry objects, dress upper body, overhead activity and return to exercise and work around the home or on the job without significant limitation. 4-[address]) Pt/caregiver will be I and consistent with HEP with use of handout as needed in order to maximize shoulder strength and ROM/flexibility. 2-3 weeks Planned interventions include: cryotherapy, education/instruction , home program, hot pack, manual therapy and therapeutic exercises. Frequency and duration: 2-3 time(s) a week, for 6 weeks, for 12-18 visits. Potential to achieve rehab goals is good Plan of care was developed with input and agreement by the patient. Assessment The pt presents with Medical Dx of R RTC Strain, R shoulder pain, S/P R Shoulder RTC Repair on 03/20/2023. Pt presents with the following deficits: increased pain, decreased strength, ROM, flexibility and functional ability to reach out and lift objects with R UE. Pt would benefit from PT services in order to improve on these deficits and to maximize strength and ability for functional activity/mobility. Clinical Presentation: Evolving with changing characteristics. Level of Complexity: low Problem List: activity limitations, ADLs/IADLs/self care skills, decreased knowledge of HEP, flexibility, pain, range of motion/joint mobility and strength. Reason For Visit Initial Evaluation. Referred by: Dr. Gentile Adult Risk Screening There are no spiritual/cultural practices/values/need s that are important to know Initial Fall Risk Screening: TOSIN has not fallen in the last 6 months. TOSIN does not have a fear of falling. He does not need assistance with sitting, standing or walking. Does not need assistance walking in his home. He does not need assistance in an unfamiliar setting. The patient is not using an assistive device. Fall Risk Screening: patient is not considered a fall risk. Pain Scale: On a scale of 0 to 10, the patient rates the pain at 3. Please identify location of pain: R Shoulder (Pain Range 3-9/10). Pain Quality: aching and tightness. The pain makes it hard for the patient to do these things: exercise, work and house work. Living Will. Living Will: Living will on file. Healthcare POA: Health care proxy on file. Declaration of Mental Health Treatment: No mental health treatment on file. Depression/Suicide Screening: During the past 2 weeks, the patient has not felt down, depressed or hopeless. During the past 2 weeks, the patient has not felt little interest or pleasure in doing things. Insurance Insurance reviewed Visit number: 1 [facility] Comm Plan Ins: Medical Necessity. Eval only. Needs Sent Out For Auth. Dx: R RTC muscle/tendon strain S46.011D, R shoulder pain M25.511, s/p R RTC repair with subaccromial decompression and distal clavicle excision on 03/20/2023 Evaluating PT: Vishal Hurt This patient?s care and PT of record will be transferred from Vishal Hurt PT, MPT to Lisa Alexis PT effective as of 03/27/2023. 2020 Subjective Current Episode of Functional Impairment and/or Pain Date of surgery: 03/20/2023 Mechanism of Injury:. The pt is s/p R RTC repair with subaccromial decompression and distal clavicle excision on 03/20/2023. Pt reports that he is doing good overall since surgery but that his R shoulder still gets pretty sore and painful. Pain Exacerbating Factors: motion. Pain Relieving Factors: rest, ice and prescription medication. Medical Screening: Reviewed medical history form with patient and medical screening assessed. Current Medical Management: previous therapy: PT in the past, medications for current condition: and medical management for current condition: . Precautions: Fall Risk: none S/P R RTC repair with subaccromial decompression and distal clavicle excision on 03/20/2023. 6 Weeks post op on 04/24/2023. PT requested Protocol to be faxed over. Functional Assessment Prior level of function: Pt is I with all ADL's and IADL's prior. Functional limitations: reaching , participation in home management and lifting . Patient stated goal(s) for treatment include: relieving pain , increasing strength and returning to wor (more content not included)... Normal [facility] [employer] Operative Reporton 3 Operative Report [facility] Medical Records Department [address] [place] [address] Operative Report 03/20/23 0918 MR#: [id number] Acct: [id number] Name: TOSIN MENDEZ Rep #: [id number] : 1965 57 From: Mitchel Gentile DO PCP: DIRK Cheatham Status:[facility] Location: [place] [address]-1 Report of Operation Date of Procedure: 03/20/23 Pre-Operative Diagnosis: SAIS,AC arthritis, RCT, possible biceps tendon tear right shoulder Post-Operative Diagnosis: same with no biceps tendon tear Surgery/Procedure Performed:: ASD, Horace procedure, rotator cuff repair right shoulder Description of Surgical Findings:: Report of Operation Date of Procedure: 03/20/2023 Preoperative Diagnosis: Right shoulder, SAIS, AC arthrosis, rotator cuff tear, possible biceps tendon tear Postoperative Diagnosis: Right Shoulder, SAIS, AC arthritis, large RCT and intact biceps tendon Operation: Diagnostic and operative arthroscopy of the right shoulder with arthroscopic subacromial decompression, Horace procedure and repair of larger RCT Surgeon: Dr Mitchel Gentile DO Research Associate Professor: Gianni Anderson PA-C Anesthesia: General Anesthesiologist: Evelio Moncada M.D. Description of Procedure: With appropriate informed consent, the patient was taken to the operative suite. After induction of general and regional anesthesia and administration of preoperative antibiotics, the patient was placed in a beach-chair position with all bony prominences well padded. SCD's were on the legs. The right arm and shoulder were prepared and draped sterilely. Thereafter, the standard arthroscopy portals were established. The glenohumeral joint was in good condition without evidence of damage or arthrosis. An anterior portal was established. There was moderate bicipital tendinopathy with no tearing orsubluxation of the biceps tendon from the bicipital groove. A shaver was utilized to debrided the biceps tendinopathy.. There was no labral instability. There was a tear of the supraspinatus into the leading edge of the infraspinatus. The undersurface of this was debrided with a shaver. The arthroscopy instruments were then removed from the joint and placed into the subacromial space. A lateral portal was established. There was severe hypertrophic subacromial bursitis. A complete subacromial bursectomy was carried out. This revealed a large anterior inferior subacromial spur and significant AC joint arthrosis. A bur was utilized to perform an anterior inferior acromionectomy to flatten the undersurface of the acromion and decompress the subacromial space. The bur was then utilized to resect the distal 9mm of the clavicle in the manner of Horace. Attention was now brought to the rotator cuff. The rotator cuff footprint was slightly decorticated with a bur. Thereafter, [ 6 ] Arthrex FiberTape suture was placed in a horizontal mattress fashion and then augmented with a FiberLoop to augment the repair. The sutures were brought out laterally then over [ 3 ] SwiveLock anchor, very nicely bringing the rotator cuff back down to the footprint and compressing it. The free ends of the sutures were cut and I was able to take the shoulder through a full range of motion with no evidence of undue impingement or undue tension upon the repair. Arthroscopy instruments and fluids were removed. The portals were closed with interrupted sutures of 4-0 nylon followed by application of a sterile well-padded dressing and UltraSling. My surgeon assistant, Mr Anderson, provided a vital role in the performance of this procedure beginning with positioning of the patient, maneuvering the arm, holding the arthroscope during various portions of the diagnostic and operative arthroscopy. Then, under my direct supervision, he closed the wounds and applied the sterile post-operative dressing. The patient was extubated and transferred to the PACU in stable and satisfactory condition. Mitchel Gentile DO Surgeon: Mitchel Gentile reimbursement spec: Gianni Anderson Type of Anesthesia: General/Regional Anesthesiologist: Evelio Moncada Admmariam VTE Documentation VTE Present on Admission: No VTE Mechan Device Prophylaxis: SCD's and Thigh High ASHLY Hose VTE Pharm Prophylaxis ordered?: Yes 03/20/23924 Cosigner Signature (if applicable): CC: DIRK Hawkins; Dr. Mitchel Gentile DO Signed Normal [facility] Absolute lymphocyte countOrd ered By: Mitchel Gentile on 03-07-2023 Lymphocytes Auto (Unsp spec) [#/Vol] 1.63 10*3/uL 0.83-4.51 [facility] Basophil percentageOrdered B y: Mitchel Gentile on 03-07-2023 Basophils/100 WBC (Bld) 0.4 % 0-1 [facility] Chloride [Moles/Vol] 107 mmol/L 98-107 [facility] Eosinophils/100 WBC (Bld) 3.0 % 0-5 [facility] Glucose [Mass/Vol] 98 mg/dL 74-106 [facility] Neutrophils (Bld) [#/Vol] 4.5 10*3/uL 2.0-7.7 [facility] Neutrophils/100 WBC (Bld) 60.7 % 47-70 [facility] Potassium [Moles/Vol] 4.0 mmol/L 3.5-5.1 [facility] Sodium [Moles/Vol] 139 mmol/L 136-145 [facility] WBC (Bld) [#/Vol] 7.4 10*3/uL 4.4-11.0 [facility] Basophil percentageOrdered B y: Olivia Guajardo on 03-07-2023 Bilirubin [Mass/Vol] 0.80 mg/dL 0.20-1.00 [facility] Comment on above: For patients on eltr ombopag therapy, use of Dimension [place] TBIL is not recommended. Cholesterol [Mass/Vol] 185 mg/dL <200 [facility] Comment on above: <200 mg/dL Desirable 200-240 mg/dL Borderline >240 mg/dL High Risk Protein [Mass/Vol] 7.6 g/dL 6.4-8.2 [facility] Testosterone [Mass/Vol] 248.95 ng/dL [facility] Comment on above: CENTRAL 90% REFERENC E RANGES MALE AGE <50 197.44 - 669.58 ng/dL MALE AGE > or = 50 187.72 - 684.19 ng/dL FEMALE AGE <50 8.38 - 35.01 ng/dL FEMALE AGE > or = 50 <7.00 - 35.92 ng/dL Effective as of 02/02/21 Triglyceride [Mass/Vol] 160 mg/dL <199 [facility] Comment on above: The drugs N-Acetylcy steine and Metamizole may falsely depress this assay.Serum Triglycerides Reference Interval Normal <150 mg/dL Borderline high 150 - 199 mg/dL High 200 - 499 mg/dL Very High > or = 500 mg/dL Blood erythrocytes count (nu mber/volume)Ordered By: Mitchel Gentile on 03-07-2023 RBC (Bld) [#/Vol] 4.20 10*6/uL 4.6-6.2 [facility] Blood hemoglobin measurement (mass/volume)Ordered By: Mitchel Gentile on 03-07-2023 Hemoglobin (Bld) [Mass/Vol] 13.9 g/dL 13.0-16.5 [facility] Blood lymphocytes/100 leukoc ytesOrdered By: Mitchel Gentile on 03-07-2023 Lymphocytes/100 WBC (Bld) 22.0 % 19-41 [facility] Blood monocytes/100 leukocyt esOrdered By: Mitchel Gentile on 03-07-2023 Monocytes/100 WBC (Bld) 13.6 % 0-10 [facility] Blood platelet mean volumeOr dered By: Mitchel Gentile on 03-07-2023 Platelet mean volume (Bld) [Entitic vol] 9.1 fL 6.2-12.0 [facility] Determination of erythrocyte mean corpuscular volume (MCV)Ordered By: Mitchel Gentile on 03-07-2023 MCV (RBC) [Entitic vol] 98.8 fL 80-94 [facility] Direct bilirubinOrdered By: Olivia Guajardo on 03-07-2023 Bilirubin.direct [Mass/Vol] 0.15 mg/dL 0.00-0.30 [facility] Hematocrit Auto (Bld) [Volum e fraction]Ordered By: Mitchel Gentile on 03-07-2023 Hematocrit (Bld) [Volume fraction] 41.5 % 40-54 [facility] Laboratory - Chemistry and C hemistry - challengeOrdered By: Olivia Guajardo on 03-07-2023 ALP [Catalytic activity/Vol] 52 U/L 45-117 [facility] ALT [Catalytic activity/Vol] 35 U/L 16-61 [facility] Free T4 [Mass/Vol] 1.12 ng/dL 0.76-1.46 [facility] Globulin (S) [Mass/Vol] 3.9 g/dL 2.2-4.2 [facility] - Chemistry and C hemistry - challengeOrdered By: Mitchel Gentile on 03-07-2023 CO2 [Moles/Vol] 27.0 mmol/L 21.0-32.0 [facility] Urea nitrogen/Creatinine [Mass ratio] 15.2 mg/mg 10-20 [facility] - Hematology and Cell countsOrdered By: Mitchel Gentile on 03-07-2023 Erythrocyte distribution width (RBC) [Entitic vol] 45.3 fL 35.1-43.9 [facility] Erythrocyte distribution width (RBC) [Ratio] 12.6 % 11.6-14.6 [facility] Immature granulocytes/100 WBC (Bld) 0.300 % 0.0-0.9 [facility] Comment on above: IG% - Immature Granu locytes (promyelocytes, myelocytes and metamyelocytes) > 1% indicates that a LEFT SHIFT is Present. MCH (RBC) [Entitic mass] 33.1 pg 27.0-32.0 [facility] Nucleated RBC/100 WBC (Bld) [Ratio] 0 % 0-5 [facility] MCHC Auto (RBC) [Mass/Vol]Or dered By: Mitchel Gentile on 03-07-2023 MCHC (RBC) [Mass/Vol] 33.5 g/dL 32-36 [facility] No Panel InformationOrdered By: Mitchel Gentile on 03-07-2023 Estimated GFR (MDRD) Amer 109 mL/min >60 [facility] Comment on above: GFR Calc Estimated GFR (MDRD) Non-Af Amer 90 mL/min >60 [facility] Comment on above: Non- GFR Calc No Panel InformationOrdered By: Olivia Guajardo on 03-07-2023 Thyroid Stimulating Hormone (TSH) 3.03 uIU/mL 0.358-3.74 [facility] Platelets bldOrdered By: Felix Gentile on 03-07-2023 Platelets (Bld) [#/Vol] 195 10*3/uL 150-450 [facility] Serum or plasma albumin loretta urement (mass/volume)Ordered By: Olivia Guajardo on 03-07-2023 Albumin [Mass/Vol] 3.7 g/dL 3.2-5.0 [facility] Serum or plasma calcium loretta urement (mass/volume)Ordered By: Mitchel Gentile on 03-07-2023 Calcium [Mass/Vol] 9.0 mg/dL 8.5-10.1 [facility] Serum or plasma cholesterol in HDL measurement (mass/volume)Ordered By: Olivia Guajardo on 03-07-2023 Cholesterol in HDL [Mass/Vol] 46 mg/dL >40 [facility] Comment on above: The drugs N-Acetylcy steine and Metamizole may falsely depress this assay. Reference Range HDL <40 mg/dL Low HDL Cholesterol HDL >or= 60 mg/dL High HDL Cholesterol Serum or plasma cholesterol in VLDL measurement (mass/volume)Ordered By: Olivia Guajardo on 03-07-2023 Cholesterol in VLDL [Mass/Vol] 32 mg/dL 5-40 [facility] Serum or plasma creatinine m easurement (mass/volume)Ordered By: Mitchel Gentile on 03-07-2023 Creatinine [Mass/Vol] 0.92 mg/dL 0.70-1.30 [facility] Comment on above: The validity of the calculated GFR & GFRAA in patients over 70 years has not been determined. Clinical correlation is essential. Serum or plasma low density lipoprotein (LDL) cholesterol measurement (mass/volume)Ordered By: Olivia Guajardo on 03-07-2023 Cholesterol in LDL [Mass/Vol] 107 mg/dL 0-130 [facility] Serum or plasma testosterone free measurement (mass/volume)Ordered By: Olivia Guajardo on 03-07-2023 Testosterone Free [Mass/Vol] 1.9 pg/mL 7.2-24.0 [facility] Comment on above: Performed at: [facility] [id number] [place], [place] [id number] Director: Neomy Haas MD, Phone: [phone] Serum or plasma urea nitroge n measurement (mass/volume)Ordered By: Mitchel Gentile on 03-07-2023 Urea nitrogen [Mass/Vol] 14 mg/dL 7-18 [facility] Thin prep Papanicolaou smear with manual screeningOrdered By: Olivia Guajardo on 03-07-2023 Thin prep Papanicolaou smear with manual screening 21 U/L 15-37 [facility] Thin prep Papanicolaou smear with manual screeningOrdered By: Mitchel Gentile on 03-07-2023 Thin prep Papanicolaou smear with manual screening 5 5-15 [facility] Whole blood hemoglobin A1c/t otal hemoglobin ratio (mass fraction)Ordered By: Mitchel Gentile on 03-07-2023 HbA1c (Bld) [Mass fraction] 5.5 % 3.8-5.6 [facility] Comment on above: Normal < 5.7 % Predi abetic 5.7 - 6.4 % Diabetic >or= 6.5 % Please note range changes. Provider Note - ED v3on 08 Provider Note - ED v3 Provider Note: Results/Vital Signs: Pediatric Clinical Scoring (LUIS ANTONOI) is no recent LUIS ANTONIO charted on this account Chart Review: HISTORY OF PRESENTING ILLNESS TOSIN is a 57 year old Male and was seen by me at 16-Feb-2023 12:15. The historian is the patient. Triage Information: Most recent Vital Sign Value Date PAST MEDICAL HISTORY ALLERGIES/INTOLERANCE S: No Known Allergies HEALTH HISTORY: History of HTN; no other known health issues. Family history: No pertinent history. Social history: . Enjoys boating. OUTPATIENT MEDICATIONS: Home Medications Review Status for Reconciliation: Complete Med Status: Patient Currently Takes Medications Drug Name: carvedilol Instructions: null Drug Name: lisinopril Instructions: null SIGNIFICANT EVENTS: History of 3 knee surgeries, elbow, shoulder, and wrist repairs. No other known significant events or other known past surgical history. CRITICAL CARE VITAL SIGNS: T PRBP SpO2O2(LPM) %FiO2 Method 16-Feb-2023 12:16:[id number]/ 93 97 [facility] MDM/ED COURSE: This note was generated with voice recognition software and may contain errors including spelling, grammar, syntax, and misrecognization of what was dictated CHIEF COMPLAINT itchy rash HISTORY OF PRESENT ILLNESS Patient presents today for evaluation of rash that started on 3-4 days ago. Reports he has been outside a lot working around the yard where there is poison david and a lot of other weeds. Since onset, the rash has spread to both of his legs, and is starting to develop on both of his arms. He reports rash is intensely itchy; he denies any swelling, pain, or drainage from the rash. No fever/chills, n/v, or other systemic symptoms. Reports he has been applying calamine, cortisone cream, and taking benadryl without much relief; also took 2 of his 's leftover prednisone tablets. No other complaints. Only known medical history: HTN; denies any history of GI issues. REVIEW OF SYSTEMS 10 systems reviewed negative with exception of history of present illness listed above PHYSICAL EXAMINATION General: Pleasant male, alert and oriented, in no acute distress. Eyes: Eyes non-icteric; conjunctiva clear. HENT: Airway patent. Normocephalic. Neck: Supple; no lymphadenopathy Respiratory: Lungs are clear to auscultation, Respirations are non-labored, Breath sounds are equal, Symmetrical chest wall expansion. Cardiovascular: Normal rate, Regular rhythm. Normal S1S2. No m/r/g. Musculoskeletal: Grossly normal. Integumentary: [place] papular/vesicular rash scattered in patches to bilat posterior legs, as well as few areas to bilat arms. No crusting or active drainage; no tenderness, edema, surrounding erythema, or streaking. Neurologic: Alert, Oriented, Normal sensory, Normal motor function. No focal abnormalities. Cognition and Speech: Oriented, Speech clear and coherent. Psychiatric: Cooperative, Appropriate mood & affect. MEDICAL DECISION MAKING Course: Worsening; stable. Impression/Plan: Due to severity of rash noted on exam today, will start oral steroid taper (Prednisone) + PRN topical triamcinolone today. Encouraged to also start course of Zyrtec to help with management of pruritis. Cool compresses may also be helpful. Reviewed instructions and common side effects of medications- should avoid NSAID while taking prednisone. Discussed poison david/contact dermatitis and expectations for resolution of rash at length, as well as prevention strategies for the future - urged to wash anything that may have come in contact with oils from potential irritants with soap and water to prevent spread/re-infection. Encouraged to keep skin clean and dry, avoid scratching as able, and monitor closely for any signs/symptoms of infection (fever, purulent drainage, red streaking, increased swelling/redness/kam ration, etc) - none noted at this time. Advised should f/u with PCP if not improving over the next 3-5 days, or to seek care sooner if any additional problems/red flags develop. Patient agreed with plan of care; questions were encouraged and answered. Problem: rash Data reviewed/analyzed: No labwork, imaging, or tests outside of physical exam done today; no previous documents available for review today. Risk: Low risk of morbidity/mortality Problems addressed: contact dermatitis. Education/patient instructions: See above. BP today was elevated - states he just took BP medication ~5 minutes before today's visit, but that BP is monitored closely and is typically WNL. Should continue close monitoring and f/u with PCP. DISPOSITION Diagnosis/Annotation: ED Dx Name:Contact dermatitis Code:L25.9 Disposition: discharged Type: home CONSULT CRITICAL CARE TIME Is this a critically ill patient: no Electronic Signatures: Adela Cheek (HEALTH AND WELLNESS DIRECTOR-[employer]) (Signed 16-Feb-2023 12:57) Authored: Nabila TIPTON (more content not included)... Normal [facility] COMPREHENSIVE PANELon 2021 Albumin [Mass/Vol] 4.2 g/dL Normal 3.4 - 5.0 [facility] Comment on above: Performed By: #### C MP #### [address] [address] ALP [Catalytic activity/Vol] 52 U/L Normal 33 - 120 [facility] Comment on above: Performed By: #### C MP #### [address] [address] ALT [Catalytic activity/Vol] 22 U/L Normal 10 - 52 [facility] Comment on above: Result Comment: Maeve ents treated with Sulfasalazine may generate falsely decreased results for ALT. Performed By: #### C MP #### [address] [address] Anion gap [Moles/Vol] 9 mmol/L Low 10 - 20 [facility] Comment on above: Performed By: #### C MP #### [address] [address] AST [Catalytic activity/Vol] 24 U/L Normal 9 - 39 [facility] Comment on above: Performed By: #### C MP #### [address] [address] Bilirubin [Mass/Vol] 0.5 mg/dL Normal 0.0 - 1.2 [facility] Comment on above: Performed By: #### C MP #### [address] [address] Calcium [Mass/Vol] 9.4 mg/dL Normal 8.6 - 10.3 [facility] Comment on above: Performed By: #### C MP #### [address] [address] Chloride [Moles/Vol] 103 mmol/L Normal 98 - 107 [facility] Comment on above: Performed By: #### C MP #### [address] [address] Creatinine [Mass/Vol] 0.86 mg/dL Normal 0.50 - 1.30 [facility] Comment on above: Performed By: #### C MP #### [address] [address] eGFR MALE >90 Normal >90 [facility] Comment on above: Result Comment: CALC ULATIONS OF ESTIMATED GFR ARE PERFORMED USING THE 2020 CKD-EPI STUDY REFIT EQUATION WITHOUT THE RACE VARIABLE FOR THE IDMS-TRACEABLE CREATININE METHODS. https://jasn.asnjournals.org/content//ASN.46750 [address]20 Performed By: #### C MP #### [address] [address] Glucose [Mass/Vol] 71 mg/dL Low 74 - 99 [facility] Comment on above: Performed By: #### C MP #### [address] [address] HCO3 (Bld) [Moles/Vol] 29 mmol/L Normal 21 - 32 [facility] Comment on above: Performed By: #### C MP #### [address] [address] Potassium [Moles/Vol] 4.2 mmol/L Normal 3.5 - 5.3 [facility] Comment on above: Performed By: #### C MP #### [address] [address] Protein [Mass/Vol] 7.6 g/dL Normal 6.4 - 8.2 [facility] Comment on above: Performed By: #### C MP #### [address] [address] Sodium [Moles/Vol] 137 mmol/L Normal 136 - 145 [facility] Comment on above: Performed By: #### C MP #### [address] [address] Urea nitrogen [Mass/Vol] 16 mg/dL Normal 6 - 23 [facility] Comment on above: Performed By: #### C MP #### [address] [address] XR Knee Complete Righton XR Knee Complete Right Exam Date/Time: 04/04/2018 11:40 EDT Reason for Exam: pain after injury Report STUDY: XR Knee Complete Right; 04/04/2018 11:40 am INDICATION: pain after injury. COMPARISON: None. ACCESSION NUMBER(S): [id number] ORDERING CLINICIAN: Susu Hawkins TECHNIQUE: 4 views of the right knee were obtained. FINDINGS: Moderate fullness in the suprapatellar bursa. There is a bone staple in the proximal lateral aspect of the tibia. Moderate medial and lateral meniscal chondrocalcinosis. Sharpening of the tibial spines. Slight medial compartment narrowing with trace spur formation. Mild patellofemoral spur formation. No lytic or blastic destructive bone lesion. No acute fracture or dislocation. 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 Question CPPD. Moderate effusion. No acute fracture or dislocation. FINAL REPORT Dictated: 04/04/2018 4:55 pm Myron Parra MD Signed (Electronic Signature): 04/04/2018 4:55 pm Signed by: Myron Parra MD Technologist: [facility] Vital Signs Date Time Vital Sign Value Performing Clinician Facility 03-26-2025 11:43-0400 Body height 182.9 cm Sarah Alix HEALTH AND WELLNESS DIRECTOR-[employer] Work Phone: [phone] [place] [address] 03-26-2025 11:43-0400 Body mass index (BMI) [Ratio] 28.48 kg/m2 Sarahmarie Breauxey HEALTH AND WELLNESS DIRECTOR-[employer] Work Phone: [facility] 03-26-2025 11:43-0400 Body temperature 98.4 [degF] Sarahmarie Guallpa HEALTH AND WELLNESS DIRECTOR-[employer] Work Phone: [facility] 03-26-2025 11:43-0400 Body weight 95.25 kg Sarahmarie Guallpa HEALTH AND WELLNESS DIRECTOR[facility] Work Phone: [facility] 03-26-2025 11:43-0400 Diastolic blood pressure 84 mm[Hg] Sarah Alix MIKEN[facility] Work Phone: [facility] 03-26-2025 11:43-0400 Heart rate 73 /min Sarahmarie Guallpa HEALTH AND WELLNESS DIRECTOR-[employer] Work Phone: [facility] 03-26-2025 11:43-0400 SaO2% (BldA) [Mass fraction] 98 % Sarah Alix HEALTH AND WELLNESS DIRECTOR-[employer] Work Phone: [facility] 03-26-2025 11:43-0400 Systolic blood pressure 123 mm[Hg] Sarah Alix HEALTH AND WELLNESS DIRECTOR-[employer] Work Phone: [phone] [place] [address] 07-22-2024 14:47-0500 Body mass index (BMI) [Ratio] 28.48 kg/m2 Fredis Lizandromartinez HEALTH AND WELLNESS DIRECTOR-[employer] Work Phone: [facility] 07-22-2024 14:47-0500 Body temperature 98.29 [degF] Fredis Rich HEALTH AND WELLNESS DIRECTOR-[employer] Work Phone: [facility] 07-22-2024 14:47-0500 Body weight 95.25 kg Fredis Rich HEALTH AND WELLNESS DIRECTOR-[employer] Work Phone: [facility] 07-22-2024 14:47-0500 Diastolic blood pressure 95 mm[Hg] Fredis Lizandromartinez HEALTH AND WELLNESS DIRECTOR-[employer] Work Phone: [facility] 07-22-2024 14:47-0500 Heart rate 84 /min Fredis Rich HEALTH AND WELLNESS DIRECTOR-[employer] Work Phone: [facility] 07-22-2024 14:47-0500 Respiratory rate 16 /min Fredis Rich HEALTH AND WELLNESS DIRECTOR-[employer] Work Phone: [facility] 07-22-2024 14:47-0500 SaO2% (BldA) [Mass fraction] 100 % Fredis Zhangbony HEALTH AND WELLNESS DIRECTOR-[employer] Work Phone: [facility] 07-22-2024 14:47-0500 Systolic blood pressure 131 mm[Hg] Fredis Piper HEALTH AND WELLNESS DIRECTOR-[employer] Work Phone: [facility] 07-16-2024 15:19-0500 Body height 182.9 cm Sarah Guallpa HEALTH AND WELLNESS DIRECTOR-[employer] Work Phone: [facility] 07-16-2024 15:19-0500 Body mass index (BMI) [Ratio] 28.48 kg/m2 Sarah Guallpa HEALTH AND WELLNESS DIRECTOR-[employer] Work Phone: [facility] 07-16-2024 15:19-0500 Body temperature 97.3 [degF] Sarah Guallpa HEALTH AND WELLNESS DIRECTOR-[employer] Work Phone: [facility] 07-16-2024 15:19-0500 Body weight 95.25 kg Sarah Guallpa HEALTH AND WELLNESS DIRECTOR-[employer] Work Phone: [facility] 07-16-2024 15:19-0500 Diastolic blood pressure 72 mm[Hg] Sarah Guallpa HEALTH AND WELLNESS DIRECTOR-[employer] Work Phone: [facility] 07-16-2024 15:19-0500 Heart rate 54 /min Sarah Guallpa HEALTH AND WELLNESS DIRECTOR-[employer] Work Phone: [facility] 07-16-2024 15:19-0500 Respiratory rate 18 /min Sarah Guallpa HEALTH AND WELLNESS DIRECTOR-[employer] Work Phone: [facility] 07-16-2024 15:19-0500 SaO2% (BldA) [Mass fraction] 97 % Sarah Guallpa HEALTH AND WELLNESS DIRECTOR-[employer] Work Phone: [facility] 07-16-2024 15:19-0500 Systolic blood pressure 118 mm[Hg] Sarah Guallpa HEALTH AND WELLNESS DIRECTOR-[employer] Work Phone: [facility] 01-09-2024 15:55-0400 Body height 182.9 cm Fredis Piper HEALTH AND WELLNESS DIRECTOR-[employer] Work Phone: [facility] 01-09-2024 15:55-0400 Body mass index (BMI) [Ratio] 28.48 kg/m2 Fredis Piper HEALTH AND WELLNESS DIRECTOR-[employer] Work Phone: [facility] 01-09-2024 15:55-0400 Body temperature 98.71 [degF] Fredis Piper HEALTH AND WELLNESS DIRECTOR-[employer] Work Phone: [facility] 01-09-2024 15:55-0400 Body weight 95.25 kg Fredis Piper HEALTH AND WELLNESS DIRECTOR-[employer] Work Phone: [facility] 01-09-2024 15:55-0400 Diastolic blood pressure 87 mm[Hg] Fredis Boneenibony HEALTH AND WELLNESS DIRECTOR-[employer] Work Phone: [facility] 07-02-2024 15:55-0400 Heart rate 81 /min Fredis Rich HEALTH AND WELLNESS DIRECTOR[employer] Work Phone: [facility] 01-09-2024 15:55-0400 Respiratory rate 18 /min Fredis iPper HEALTH AND WELLNESS DIRECTOR-[employer] Work Phone: [facility] 01-09-2024 15:55-0400 SaO2% (BldA) [Mass fraction] 96 % Fredis Piper HEALTH AND WELLNESS DIRECTOR-[employer] Work Phone: [facility] 01-09-2024 15:55-0400 Systolic blood pressure 132 mm[Hg] Fredis Piper HEALTH AND WELLNESS DIRECTOR-[employer] Work Phone: [facility] 07-11-2023 16:19-0500 Body height 182.9 cm Fredis Piper HEALTH AND WELLNESS DIRECTOR-[employer] Work Phone: [facility] 07-11-2023 16:19-0500 Body mass index (BMI) [Ratio] 28.48 kg/m2 Fredis Rich HEALTH AND WELLNESS DIRECTOR-[employer] Work Phone: [facility] 07-11-2023 16:19-0500 Body temperature 97.11 [degF] Fredis Piper HEALTH AND WELLNESS DIRECTOR-[employer] Work Phone: [facility] 07-11-2023 16:19-0500 Body weight 95.25 kg Fredis Piper HEALTH AND WELLNESS DIRECTOR[employer] Work Phone: [facility] 07-11-2023 16:19-0500 Diastolic blood pressure 99 mm[Hg] Fredis Rich HEALTH AND WELLNESS DIRECTOR-SPINDLE CARVER Work Phone: [facility] 07-11-2023 16:19-0500 Heart rate 66 /min Fredis Lizandroabiliobony HEALTH AND WELLNESS DIRECTOR-SPINDLE CARVER Work Phone: [facility] 07-11-2023 16:19-0500 Respiratory rate 16 /min Fredis Lizandroenibony HEALTH AND WELLNESS DIRECTOR-SPINDLE CARVER Work Phone: [facility] 07-11-2023 16:19-0500 SaO2% (BldA) [Mass fraction] 97 % Fredis Rich HEALTH AND WELLNESS DIRECTOR-SPINDLE CARVER Work Phone: [facility] 07-11-2023 16:19-0500 Systolic blood pressure 159 mm[Hg] Fredis Rich HEALTH AND WELLNESS DIRECTOR-SPINDLE CARVER Work Phone: [facility] 06-19-2023 14:42-0500 Body height 182.9 cm Fredis Piper HEALTH AND WELLNESS DIRECTOR-SPINDLE CARVER Work Phone: [facility] 06-19-2023 14:42-0500 Body mass index (BMI) [Ratio] 28.48 kg/m2 Fredis Piper HEALTH AND WELLNESS DIRECTOR-SPINDLE CARVER Work Phone: [facility] 06-19-2023 14:42-0500 Body temperature 96.91 [degF] Fredis Rich HEALTH AND WELLNESS DIRECTOR-SPINDLE CARVER Work Phone: [facility] 06-19-2023 14:42-0500 Body weight 95.25 kg Fredis Rich HEALTH AND WELLNESS DIRECTOR-SPINDLE CARVER Work Phone: [facility] 06-19-2023 14:42-0500 Diastolic blood pressure 101 mm[Hg] Ferdis Rich HEALTH AND WELLNESS DIRECTOR-SPINDLE CARVER Work Phone: [facility] 06-19-2023 14:42-0500 Heart rate 61 /min Fredis Rich HEALTH AND WELLNESS DIRECTOR-SPINDLE CARVER Work Phone: [facility] 06-19-2023 14:42-0500 Respiratory rate 16 /min Fredis Rich HEALTH AND WELLNESS DIRECTOR-SPINDLE CARVER Work Phone: [facility] 06-19-2023 14:42-0500 SaO2% (BldA) [Mass fraction] 97 % Fredis Zhangbony HEALTH AND WELLNESS DIRECTOR-SPINDLE CARVER Work Phone: [facility] 06-19-2023 14:42-0500 Systolic blood pressure 148 mm[Hg] Fredis Lizandromartinez HEALTH AND WELLNESS DIRECTOR-SPINDLE CARVER Work Phone: [facility] 06-10-2023 11:03-0500 Body height 182 cm Adela Cheek HEALTH AND WELLNESS DIRECTOR-SPINDLE CARVER Work Phone: [facility] 06-10-2023 11:03-0500 Body mass index (BMI) [Ratio] 28.76 kg/m2 Adela Nessta HEALTH AND WELLNESS DIRECTOR-SPINDLE CARVER Work Phone: [facility] 06-10-2023 11:03-0500 Body temperature 97.5 [degF] Adela Ham HEALTH AND WELLNESS DIRECTOR-SPINDLE CARVER Work Phone: [facility] 06-10-2023 11:03-0500 Body weight 95.25 kg Adela Ham HEALTH AND WELLNESS DIRECTOR-SPINDLE CARVER Work Phone: [facility] 06-10-2023 11:03-0500 Diastolic blood pressure 96 mm[Hg] Adela Ham HEALTH AND WELLNESS DIRECTOR-SPINDLE CARVER Work Phone: [facility] 06-10-2023 11:03-0500 Heart rate 68 /min Adela Nessta HEALTH AND WELLNESS DIRECTOR-SPINDLE CARVER Work Phone: [facility] 06-10-2023 11:03-0500 SaO2% (BldA) [Mass fraction] 96 % Adela Ham HEALTH AND WELLNESS DIRECTOR-SPINDLE CARVER Work Phone: [facility] 06-10-2023 11:03-0500 Systolic blood pressure 139 mm[Hg] Adela Nessta HEALTH AND WELLNESS DIRECTOR-SPINDLE CARVER Work Phone: [facility] 03-20-2023 11:00-0400 Body temperature 98.4 [degF] SUPERVISOR BLAST FURNACE-C Susu Hawkins SUPERVISOR BLAST FURNACE Work Phone: [facility] 03-20-2023 11:00-0400 Diastolic blood pressure 81 mm[Hg] SUPERVISOR BLAST FURNACE-C Susu Hawkins SUPERVISOR BLAST FURNACE Work Phone: [facility] 03-20-2023 11:00-0400 Heart rate 50 /min SUPERVISOR BLAST FURNACE-C Susu Hawkins SUPERVISOR BLAST FURNACE Work Phone: [facility] 03-20-2023 11:00-0400 Respiratory rate 16 /min SUPERVISOR BLAST FURNACE-C Susu Hawkins SUPERVISOR BLAST FURNACE Work Phone: [facility] 03-20-2023 11:00-0400 SaO2% (BldA) [Mass fraction] 94 % SUPERVISOR BLAST FURNACE-C Susu Hawkins SUPERVISOR BLAST FURNACE Work Phone: [facility] 03-20-2023 11:00-0400 Systolic blood pressure 153 mm[Hg] SUPERVISOR BLAST FURNACE-C Susu Hawkins SUPERVISOR BLAST FURNACE Work Phone: [facility] 03-20-2023 06:05-0400 Body height 182.88 cm SUPERVISOR BLAST FURNACE-C Susu Hawkins SUPERVISOR BLAST FURNACE Work Phone: [facility] 03-20-2023 06:05-0400 Body mass index (BMI) [Ratio] 27.1 kg/m2 SUPERVISOR BLAST FURNACE-C Susu Hawkins SUPERVISOR BLAST FURNACE Work Phone: [facility] 03-20-2023 06:05-0400 Body weight 91 kg SUPERVISOR BLAST FURNACE-C Susu Hawkins SUPERVISOR BLAST FURNACE Work Phone: [facility] 03-07-2023 08:27-0400 Body height 182.88 cm SUPERVISOR BLAST FURNACE-C Susu Hawkins SUPERVISOR BLAST FURNACE Work Phone: [facility] 03-07-2023 08:27-0400 Body mass index (BMI) [Ratio] 26.9 kg/m2 SUPERVISOR BLAST FURNACE-C Susu Hawkins SUPERVISOR BLAST FURNACE Work Phone: [facility] 03-07-2023 08:27-0400 Body weight 90.26 kg SUPERVISOR BLAST FURNACE-C Susu Hawkins SUPERVISOR BLAST FURNACE Work Phone: [facility] 03-07-2023 08:27-0400 Diastolic blood pressure 87 mm[Hg] SUPERVISOR BLAST FURNACE-C Ssuu Hawkins SUPERVISOR BLAST FURNACE Work Phone: [facility] 03-07-2023 08:27-0400 Heart rate 53 /min SUPERVISOR BLAST FURNACE-C Susu Hawkins SUPERVISOR BLAST FURNACE Work Phone: [facility] 03-07-2023 08:27-0400 Respiratory rate 18 /min SUPERVISOR BLAST FURNACE-C Susu Hawkins SUPERVISOR BLAST FURNACE Work Phone: [facility] 03-07-2023 08:27-0400 SaO2% (BldA) [Mass fraction] 98 % SUPERVISOR BLAST FURNACE-C Susu Hawkins SUPERVISOR BLAST FURNACE Work Phone: [facility] 03-07-2023 08:27-0400 Systolic blood pressure 132 mm[Hg] SUPERVISOR BLAST FURNACE-C Susu Hawkins SUPERVISOR BLAST FURNACE Work Phone: [facility] 02-16-2023 14:16-0400 Body height 182.8 cm Susu Hawkins Other Phone: [facility] 02-16-2023 14:16-0400 Body temperature 97.7 [degF] Susu Hawkins Other Phone: [facility] 02-16-2023 14:16-0400 Diastolic blood pressure 93 mm[Hg] Susu Hawkins Other Phone: [facility] 02-16-2023 14:16-0400 Heart rate 50 /min Susu Hawkins Other Phone: [facility] 02-16-2023 14:16-0400 SaO2% (BldA) [Mass fraction] 97 % Susu Hawkins Other Phone: [facility] 02-16-2023 14:16-0400 Systolic blood pressure 152 mm[Hg] Susu Hawkins Other Phone: [facility] 03-09-2021 13:20-0400 Body height 182.8 cm No Pcp Required [facility] 03-09-2021 13:20-0400 Body temperature 97.88 [degF] No Pcp Required [facility] 03-09-2021 13:20-0400 Diastolic blood pressure 88 mm[Hg] No Pcp Required [facility] 03-09-2021 13:20-0400 Heart rate 60 /min No Pcp Required [facility] 03-09-2021 13:20-0400 SaO2% (BldA) [Mass fraction] 98 % No Pcp Required [facility] 03-09-2021 13:20-0400 Systolic blood pressure 134 mm[Hg] No Pcp Required [facility] Encounters Encounter Date Encounter Type Care Provider Facility Start: 03-26-2025 End: 03-26-2025 Office outpatient visit 15 minutes Sarah L Alix HEALTH AND WELLNESS DIRECTOR-SPINDLE CARVER Work Phone: [facility] Comment on above: Acute bronchitis, un specified organism (Primary Dx); Acute cough Start: 03-26-2025 End: 03-26-2025 ambulatory [facility] Start: 07-22-2024 End: 07-22-2024 Patient encounter procedure Fredis Piper HEALTH AND WELLNESS DIRECTOR-SPINDLE CARVER Work Phone: [facility] Comment on above: Acute bronchitis, un specified organism (Primary Dx) Start: 07-22-2024 End: 07-22-2024 ambulatory [facility] Start: 07-16-2024 End: 07-16-2024 Patient encounter procedure Sarah Guallpa HEALTH AND WELLNESS DIRECTOR-SPINDLE CARVER Work Phone: [facility] Comment on above: Acute bacterial sinu sitis (Primary Dx); Acute cough Start: 07-16-2024 End: 07-16-2024 ambulatory [facility] Start: 06-19-2024 End: 06-19-2024 ambulatory [facility] Start: 06-17-2024 End: 06-17-2024 ambulatory SUSU HAWKINS [facility] Start: 06-17-2024 Encounter for genera l adult medical examination without abnormal findings [facility] Start: 03-05-2024 End: 03-05-2024 ambulatory Susu [place] SUPERVISOR BLAST FURNACE Facility:[facility] Start: 03-05-2024 End: 03-05-2024 ambulatory Olivia Guajardo SUPERVISOR BLAST FURNACE Facility:[facility] Start: 01-19-2024 ambulatory SUSU [facility] Start: 01-09-2024 End: 01-09-2024 Patient encounter procedure Fredis Piper HEALTH AND WELLNESS DIRECTOR-SPINDLE CARVER Work Phone: [facility] Comment on above: Irritant contact rigoberto matitis due to plants, except food (Primary Dx) Start: 11-02-2023 ambulatory Susu [place] SUPERVISOR BLAST FURNACE Facility :[facility] Start: 07-18-2023 End: 07-18-2023 ambulatory [facility] Start: 07-13-2023 End: 07-13-2023 ambulatory [facility] Start: 07-11-2023 End: 07-11-2023 Patient encounter procedure Fredis Maximiliano Rich HEALTH AND WELLNESS DIRECTOR-SPINDLE CARVER Work Phone: [facility] Comment on above: Acute non-recurrent maxillary sinusitis (Primary Dx) Start: 06-19-2023 End: 06-19-2023 Patient encounter procedure Fredis Piper HEALTH AND WELLNESS DIRECTOR-SPINDLE CARVER Work Phone: [facility] Comment on above: Acute non-recurrent maxillary sinusitis (Primary Dx) Start: 06-10-2023 End: 06-10-2023 Office outpatient visit 15 minutes Adela Cheek HEALTH AND WELLNESS DIRECTOR-SPINDLE CARVER Work Phone: [facility] Comment on above: Acute maxillary sinu sitis, recurrence not specified (Primary Dx); Acute bronchitis, unspecified organism Start: 04-24-2023 End: 04-24-2023 ambulatory [facility] Start: 04-05-[address] Mitchel Dietz Facility:[id number] Start: 04-05-2023 PTFUADULT4, Provider : Sheree Hodges, Status: Pen, Time: 10:00 AM [facility]u [place] [facility] Start: 04-05-2023 PTFUADULT4, Provider : Yeimi Hardwick, Status: Pen, Time: 10:00 AM [facility] [place] [facility] [place] Work [facility]: Start: 04-03-2023 Patient encounter procedure [facility] [place] [facility] [place] Work Phone: Start: 04-03-[address] Mitchel Dietz Facility:[id number] Start: 04-03-2023 ambulatory Ms. Susu Hawkins [facility] ility:[id number] Start: 03-27-2023 Patient encounter procedure Susu [place] Work Phone: [facility] [place] Work Phone: Start: 03-27-[address] Mitchel Dietz Facility:[id number] Start: 03-20-2023 End: 03-20-2023 Admission to same day surgery center SUPERVISOR BLAST FURNACE-C Susu Hawkins SUPERVISOR BLAST FURNACE Work Phone: [facility] Start: 03-20-2023 End: 03-20-2023 ambulatory SUPERVISOR BLAST FURNACE-C Susu [place] SUPERVISOR BLAST FURNACE Work Phone: [facility] Work Phone: Start: 03-13-2023 Non-patient / Non-visit SUPERVISOR BLAST FURNACE-C Whitney [place] SUPERVISOR BLAST FURNACE Work Phone: [facility] Start: 03-08-2023 Non-patient / Non-visit SUPERVISOR BLAST FURNACE-C Whitney [place] SUPERVISOR BLAST FURNACE Work Phone: [facility] Start: 03-08-2023 End: 03-08-2023 ambulatory SUPERVISOR BLAST FURNACE-C Susu Hawkins SUPERVISOR BLAST FURNACE Work Phone: [facility] Work Phone: Start: 03-08-2023 End: 03-08-2023 Patient encounter procedure SUPERVISOR BLAST FURNACE-C Susu Hawkins SUPERVISOR BLAST FURNACE Work Phone: [facility] Work Phone: Start: 03-07-2023 Preoperative state SUPERVISOR BLAST FURNACE-C Susu Hawkins SUPERVISOR BLAST FURNACE Work Phone: [facility] Start: 03-07-2023 End: 03-07-2023 ambulatory SUPERVISOR BLAST FURNACE-C Susu Hawkins SUPERVISOR BLAST FURNACE Work Phone: [facility] Work Phone: Start: 03-07-2023 End: 03-07-2023 Patient encounter procedure SUPERVISOR BLAST FURNACE-Nasrin Hawkins SUPERVISOR BLAST FURNACE Work Phone: [facility] Work Phone: Start: 03-07-2023 End: 03-07-2023 Encounter for other preprocedural examination SUPERVISOR BLAST FURNACE-Nasrin Hawkins SUPERVISOR BLAST FURNACE Work Phone: [facility] Start: 03-07-2023 End: 03-07-2023 Patient encounter procedure SUPERVISOR BLAST FURNACE-Nasrin Hawkins SUPERVISOR BLAST FURNACE Work Phone: [facility] Work Phone: Start: 02-16-2023 End: 02-16-2023 Emergency department patient visit Adela Cheek [facility] Start: 03-09-2021 End: 03-09-2021 Emergency department patient visit Fredis Piper [facility] Procedures Date Procedure Procedure Detail Performing Clinician Start: 06-17-2024 PSA screening SUSU JAMES IS Comment on above: Performed By: #### [id number] #### [place] [id number] Start: 07-13-2023 PSA screening SUSU JAMES IS Comment on above: Performed By: #### [id number] #### [facility],[address] [place] [address] Start: 03-20-2023 Repair of musculoten dinous cuff of shoulder SUPERVISOR BLAST FURNACE-Nasrin Hawkins SUPERVISOR BLAST FURNACE Work Phone: Start: 03-08-2023 Radionuclide imaging of perfusion of myocardium under exercise stress SUPERVISOR BLAST FURNACE-Nasrin Hawkins SUPERVISOR BLAST FURNACE Work Phone: Plan of Treatment Date Care Activity Detail Author Start: 04-03-2025 Screening for osteoporosis Bone Density Scan [facility] Start: 03-21-2025 Diabetes mellitus screening Diabetes Screening [facility] Start: 03-10-2025 Influenza vaccination Influenza Vaccine (#1) [facility] Start: 07-17-2024 Prostate specific antigen measurement PSA Prostate Cancer Screening [facility] Start: 04-03-2024 Screening for osteoporosis Bone Density Scan [facility] Start: 03-25-2024 Zoster Vaccines (2 of 2) Zoster Vaccines (2 of 2) [facility] Start: 03-10-2024 Influenza vaccination Influenza Vaccine (#1) [facility] Start: 08-07-2023 End: 08-07-2023 ambulatory 08/07/2023 10:45 AM EST Treatment [facility] [address] [facility] [address] [place] [address] Loida Patel, PT [address] [place] [address] [facility] Start: 08-04-2023 End: 08-04-2023 ambulatory 08/04/2023 10:45 AM EST Treatment [facility] [address] [place] [address] Sheree Hodges, GROCERY TEAM MEMBER [address] [place] [address] [facility] Start: 07-31-2023 End: 07-31-2023 ambulatory 07/31/2023 10:45 AM EST Treatment [facility] [address] [place] [address] Sheree Hodges, GROCERY TEAM MEMBER [address] [place] [address] [facility] Start: 07-28-2023 End: 07-28-2023 ambulatory 07/28/2023 10:45 AM EST Treatment [facility] [address] [place] [address] Sheree Hodges, GROCERY TEAM MEMBER [address] [place] [address] [facility] Start: 07-24-2023 End: 07-24-2023 ambulatory 07/24/2023 10:45 AM EST Treatment [facility] [address] [place] [phone] Sheree Hodges, GROCERY TEAM MEMBER [address] [place] [address] [facility] Start: 07-21-2023 End: 07-21-2023 ambulatory 07/21/2023 10:00 AM EST Treatment [facility] [address] [place] [phone] Sheree Hodges, GROCERY TEAM MEMBER [address] [place] [address] [facility] Start: 07-18-2023 End: 07-18-2023 ambulatory 07/18/2023 10:45 AM EST Treatment [facility] [address] [facility] [address] [place] [id number] Sheree Hodges, GROCERY TEAM MEMBER [address] [facility] [place] [id number] [facility] Start: 07-17-2023 End: 07-17-2023 Patient encounter procedure 07/17/2023 9:30 AM EST Office Visit [facility] [address] [facility] [address] [place] [address] Olivia Alvarez MD [address] [place] [address] [facility] Start: 07-14-2023 End: 07-14-2023 ambulatory 07/14/2023 12:15 PM EST Treatment [facility] [address] [facility] [address] [place] [phone] Sheree Hodges, GROCERY TEAM MEMBER [address] [facility] [place] [id number] [facility] Start: 07-12-2023 End: 07-12-2023 ambulatory 07/12/2023 1:15 PM EST Treatment [facility] [address] [facility] [address] [place] [address] Sheree Hodges, GROCERY TEAM MEMBER [address] [facility] [place] [id number] [facility] Start: 07-11-2023 COVID-19 Vaccine (2 - Pfizer series) COVID-19 Vaccine (2 - Pfizer series) [facility] Start: 06-16-2023 End: 06-16-2023 ambulatory 06/16/2023 10:00 AM EST Treatment [facility] [address] [place] [address] Sheree Hodges, GROCERY TEAM MEMBER [address] [facility] [place] [id number] [facility] Start: 06-12-2023 End: 06-12-2023 ambulatory 06/12/2023 9:15 AM EST Treatment [facility] [address] [phone] Loida Patel, PT [address] [place] [address] [facility] Start: 03-20-2023 Patient discharge [facility] Start: 03-20-2023 Ambulation without limitation [facility] Start: 03-20-2023 Application of ice collar, cap or bag [facility] Start: 03-20-2023 Catheterization of vein [facility] Start: 03-20-2023 Following clinical pathway protocol [facility] Start: 03-20-2023 Medical regimen orders management [facility] Start: 03-20-2023 Procedure discontinued [facility] Start: 03-20-2023 Taking patient vital signs [facility] Start: 03-20-2023 Vital signs measurements [facility] Start: 03-20-2023 End: 03-20-2023 [facility] Start: 03-20-2023 Medication education [facility] Start: 03-07-2023 Testosterone Free [Mass/volume] in Serum or Plasma [facility] Start: 2015 Pneumococcal vaccination Pneumococcal Vaccine (1 of 1 - PCV) [facility] Start: 2015 Zoster Vaccines (1 of 2) Zoster Vaccines (1 of 2) [facility] Start: 1987 DTaP/Tdap/Td Vaccines (1 - Tdap) DTaP/Tdap/Td Vaccines (1 - Tdap) [facility] Start: 1984 Hepatitis B Vaccines (1 of 3 - 19+ 3-dose series) Hepatitis B Vaccines (1 of 3 - 19+ 3-dose series) [facility] Start: 1983 Diabetes mellitus screening Diabetes Screening [facility] Start: 1983 Hepatitis C screening Hepatitis C Screening [facility] Start: 1966 MMR Vaccines (1 of 1 - Standard series) MMR Vaccines (1 of 1 - Standard series) [facility] Start: 1965 Hepatitis B Vaccines (1 of 3 - 3-dose series) Hepatitis B Vaccines (1 of 3 - 3-dose series) [facility] Start: 1965 HIV screening HIV Screening [facility] Start: 1965 Lipid panel Lipid Panel [facility] Start: 1965 Screening for malignant neoplasm of colon [facility] Start: 1965 Yearly Adult Physical Yearly Adult Physical [facility] Patient referral [facility] Work Phone: Immunizations Immunization Date Immunization Notes Care Provider Octavio [email or web address] 05-03-2023 influenza virus vaccine, unspecified formulation Fredis Piper APRN-SPINDLE CARVER Work Phone: [facility] Work Phone: 07-18-2022 influenza, injectabl e, quadrivalent, preservative free Adela Ham HEALTH AND WELLNESS DIRECTOR-SPINDLE CARVER Work Phone: [facility] Work Phone: 01-19-2022 Pfizer Alfonso Cap SARS-CoV-2 Adela Ham HEALTH AND WELLNESS DIRECTOR-SPINDLE CARVER Work Phone: [facility] Work Phone: 06-28-2021 influenza, injectabl e, quadrivalent, preservative free Adela Ham HEALTH AND WELLNESS DIRECTOR-SPINDLE CARVER Work Phone: [facility] Work Phone: 04-22-2009 influenza virus vaccine, whole virus Adela Ham HEALTH AND WELLNESS DIRECTOR-SPINDLE CARVER Work Phone: [facility] Work Phone: 05-02-2008 influenza virus vaccine, whole virus Adela Ham HEALTH AND WELLNESS DIRECTOR-SPINDLE CARVER Work Phone: [facility] Work Phone: Payers Date Payer Category Payer Self-pay [id number] 2022 Unknown [id number] 2022 Medicaid (Managed Care) [facility] [id number] 2022 Private Health Insurance [facility] [id number] 2022-Present [address] [place] [address] [id number] 2022 Unknown [id number] 1965 Unknown [id number] [id number]. 1068 1965 Unknown [id number] 2.16.840.1.287782.3.579.2. 1068 1965 Unknown [id number] 2.16.840.1.273516.3.579.2. 1068 1965 Unknown [id number] 2.16.840.1.717134.3.579.2. 1068 1965 Unknown [id number] 2.16.840.1.957320.3.579.2. 1068 1965 Unknown [id number] 2.16840.1.072507.3.579.2. 1243 1965 Unknown [id number] 2.16.840.1.532427.3.579.2. 1243 1965 Unknown [id number] 2.16.840.1.396286.3.579.2. 1965 Unknown [id number] 2.16.840.1.487660.3.579.2. 1965 Unknown [id number] 2.16.840.1.918932.3.579.2. 1242 1965 Unknown [id number] 2.16.840.1.003955.3.579.2. 1242 1965 Unknown [id number] 2.16.840.1.062224.3.579.2. 1242 1965 Unknown [id number] 2.16.840.1.695313.3.579.2. 1243 Unknown Unknown [id number] 2.16.840.1.088415.3.579.2. 462 Unknown [id number] 2.16.840.1.204845.3.579.2. 462 Unknown [id number] 2.16.840.1.062922.3.579.2. 462 Unknown [id number] 2.16.840.1.721586.3.579.2. 462 Social History Date Type Detail Facility [facility] Start: 03-07-2023 Tobacco smokin g consumption unknown [facility] Start: 05-22-2018 Chew [facility] Start: 1965 Sex Assigned At Male [facility] Start: 04-24-2023 Tobacco smoking status NHIS Never smoked tobacco [facility] Work Phone: Start: 04-24-2023 Tobacco use and exposure Smokeless tobacco non-user [facility] Work Phone: Start: 06-10-2023 End: 01-09-2024 History of Social function [facility] Work Phone: Start: 06-10-2023 End: 01-09-2024 Tobacco use panel [facility] Work Phone: Start: 1965 Sex Assigned At Not on file [facility] Work Phone: Start: 05-31-2023 End: 07-22-2024 Exposure to SARS-CoV-2 (event) Not sure [facility] Start: 06-04-2022 Sex Male [facility] Medical Equipment Procedure Code Equipment Code Equipment Original Text Equipment Identifier Dates Arthroscopy, knee, with ACL reconstruction using allograft or autograft [id number],#2 FDA Start: 05-28-2018 Arthroscopy, knee, with ACL reconstruction using allograft or autograft [id number],9MM FDA Start: 05-28-2018 Arthroscopy, knee, with ACL reconstruction using allograft or autograft TENDON, ANT TIB NON IRRADIATE FDA Start: 05-28-2018 Arthroscopy, knee, with ACL reconstruction using allograft or autograft [id number],ACL FDA Start: 05-28-2018 Arthroscopy, knee, with ACL reconstruction using allograft or autograft FIBERSTICK,#2 FDA Start: 05-28-2018 Arthroscopy, knee, with ACL reconstruction using allograft or autograft GRAFTBOLT,9MM FDA Start: 05-28-2018 Arthroscopy, knee, with ACL reconstruction using allograft or autograft TENDON, ANT TIB NON IRRADIATE FDA Start: 05-28-2018 Arthroscopy, knee, with ACL reconstruction using allograft or autograft TIGHTROPE,ACL FDA Start: 05-28-2018 Arthroscopy, knee, with ACL reconstruction using allograft or autograft FIBERSTICK,#2 FDA Start: 05-28-2018 Arthroscopy, knee, with ACL reconstruction using allograft or autograft GRAFTBOLT,9MM FDA Start: 05-28-2018 Arthroscopy, knee, with ACL reconstruction using allograft or autograft TENDON, ANT TIB NON IRRADIATE FDA Start: 05-28-2018 Arthroscopy, knee, with ACL reconstruction using allograft or autograft TIGHTROPE,ACL FDA Start: 05-28-2018 Goals Date Patient Goal Desired Activity /State Mental Status Date Assessment Result Facility 03-20-2023 Cognitive function Voice/Name [facility] Work Phone: Clinical Notes 03-20-2023 to 03-26-2025 SIRI Perdue - 03/26/2025 11:40 AM EDSIRI Lee - 07/22/2024 2:45 PM SIRI Pepe - 07/16/2024 3:15 PM SIRI Josue - 01/09/2024 3:55 PM EDT Note Date & Type Note Facility 03-26-2025 History of Present illness Narrative [facility] [place] NOTE: Name: Tosin Mendze, 59 y.o. CSN:[id number] PCP: SIRI Rodriguez ALL: Allergies[1] History: Chief Complaint: URI (Cough, sinus congestion, chest congestion, aches X 8 days ) Encounter Date: 03/26/2025 HPI: The history was obtained from the patient. Tosin is a 59 y.o. male, who presents with a chief complaint of URI (Cough, sinus congestion, chest congestion, aches X 8 days ). Patient presents with nasal congestion, sinus discomfort/pressure/pain, productive cough, chest congestion, sore throat, and myalgias/muscle aches for the last 8 days. States he has also had a fever at home, however it was not verified by thermometer. Denies any abdominal discomfort, nausea/vomiting, diarrhea, shortness of breath/wheezing, chest pain, or rashes. Productive cough of thick, yellowish sputum. Reports having used NyQuil with some relief/benefit; no other uwfs-diu-snjonxb medications or home remedies for symptom management. No known history of: seasonal allergies/rhinitis, asthma, COPD/emphysema, or tobacco use. No known sick contacts. No recent travel. Denies any recent antibiotic use. PMHx: Medical History[2] Current Medications[3] PMSx: Surgical History[4] Fam Hx: Family History[5] SOC. Hx: Social History Socioeconomic History Marital status: Single Spouse name: Not on file Number of children: Not on file Years of education: Not on file Highest education level: Not on file Occupational History Not on file Tobacco Use Smoking status: Never Smokeless tobacco: Never Vaping Use Vaping status: Never Used Substance and Sexual Activity Alcohol use: Not on file Drug use: Never Sexual activity: Not on file Other Topics Concern Not on file Social History Narrative Not on file Social Drivers of Health Financial Resource Strain: Not on file Food Insecurity: Not on file Transportation Needs: Not on file Physical Activity: Not on file Stress: Not on file Social Connections: Not on file Intimate Partner Violence: Not on file Housing Stability: Not on file Vitals: 03/26/25 1143 BP: 123/84 Pulse: 73 Temp: 36.9 C (98.4 F) SpO2: 98% 95.3 kg (210 lb) Physical Exam Vitals reviewed. Constitutional: Appearance: Normal appearance. HENT: Head: Normocephalic and atraumatic. Right Ear: Tympanic membrane, ear canal and external ear normal. Left Ear: Tympanic membrane, ear canal and external ear normal. Nose: Congestion and rhinorrhea present. Mouth/Throat: Mouth: Mucous membranes are moist. Pharynx: Oropharynx is clear. Comments: Negative for oropharyngeal/tonsillar erythema or exudates Cardiovascular: Rate and Rhythm: Normal rate and regular rhythm. Pulses: Normal pulses. Heart sounds: Normal heart sounds, S1 normal and S2 normal. Pulmonary: Effort: Pulmonary effort is normal. Breath sounds: Normal breath sounds. Abdominal: General: Abdomen is flat. Bowel sounds are normal. Palpations: Abdomen is soft. Musculoskeletal: General: Normal range of motion. Cervical back: Neck supple. Lymphadenopathy: Cervical: Cervical adenopathy present. Right cervical: Superficial cervical adenopathy present. Left cervical: Superficial cervical adenopathy present. Skin: General: Skin is warm and dry. Capillary Refill: Capillary refill takes less than 2 seconds. Neurological: Mental Status: He is alert. Mental status is at baseline. Psychiatric: Mood and Affect: Mood normal. Behavior: Behavior normal. I did personally review Tosin's past medical history, surgical history, social history, as well as family history (when relevant). In this case, I also oversaw the his drug management by reviewing his medication list, allergy list, as well as the medications that I prescribed during the UC course and/or recommended as an out-patient (including possible OTC medications such as acetaminophen, NSAIDs , etc). After reviewing the items above, I did look at previous medical documentation, such as recent hospitalizations, office visits, and/or recent consultations with PCP/specialist. SDOH: Another factor that I considered in Tosin's care was his Social Determinants of Health (SDOH). During this UC encounter, he did not have social determinants of health. Those SDOH influencing Tosin's care are: none UC COURSE/MEDICAL DECISION MAKING: Tosin is a 59 y.o., who presents with a working diagnosis of 1. Acute bronchitis, unspecified organism 2. Acute cough with a differential to include: Influenza, parainfluenza, rhinovirus, adenovirus, metapneumovirus, coronavirus, COVID-19, postnasal drip, strep pharyngitis, GERD, retropharyngeal abscess, tonsillitis, adenitis, seasonal allergies Plan: Azithromycin Zpak x 5 days Prednisone 30mg daily x 7 days Capmist as needed for sinus/chest congestion Recommend supportive to include increasing hydration, rest, and management of symptoms with IBU/APAP as needed for discomfort related to illness. Advise limiting caffeine/alcohol intake to limit fluid loss during illness. Adjunctive treatments reviewed, including air humidification/steam or nasal irrigation. Instructed to monitor for new, worsening, or red-flag symptoms (e.g., respiratory distress, fever) and limiting social exposures to prevent transmission of illness. Return to urgent care, primary care provider, or emergency department with worsening symptoms. I, Eliezer Aldana, helped prepare the medical record for my supervising clinician, Sarah Guallpa DNP. Eliezer Aldana RN, [facility] Supervised by Sarah Guallpa DNP Advanced Practice Provider [facility] I was present with the HEALTH AND WELLNESS DIRECTOR student who participated in the documentation of this note. I have personally seen and re-examined the patient and performed the medical decision-making components (assessment and plan of care). I have reviewed the HEALTH AND WELLNESS DIRECTOR student documentation and verified the findings in the note as written with additions or exceptions as stated in the body of this note. [1] No Known Allergies [2] Past Medical History: Diagnosis Date Hypercholesteremia Hypertension [3] Current Outpatient Medications Medication Sig Dispense Refill carvedilol (Coreg) 12.5 mg tablet Take by mouth. carvedilol (Coreg) 25 mg tablet Take by mouth. Culturelle 15 billion cell capsule, sprinkle capsule Take by mouth. Florajen Acidophilus 20 billion cell capsule Take by mouth. lisinopriL-hydrochlorothiazide 10-12.5 mg tablet Take 1 tablet by mouth once daily at bedtime. losartan (Cozaar) 100 mg tablet Take by mouth. losartan (Cozaar) 50 mg tablet Take by mouth. meloxicam (Mobic) 7.5 mg tablet Take by mouth. multivitamin tablet Take 1 tablet by mouth once daily. oxyCODONE (Roxicodone) 5 mg immediate release tablet Take 1-2 tablets (5-10 mg) by mouth every 6 hours. sildenafil (Viagra) 50 mg tablet Take by mouth. simvastatin (Zocor) 10 mg tablet Take by mouth. triamcinolone (Kenalog) 0.1 % ointment Apply topically. triamcinolone (Kenalog) 0.5 % cream Apply topically 3 times a day. 30 g 2 azelastine (Astelin) 137 mcg (0.1 %) nasal spray Administer into each nostril. (Patient not taking: Reported on 03/26/2025) azithromycin (Zithromax Z-Eleuterio) 250 mg tablet Take 2 tablets (500 mg) on Day 1, followed by 1 tablet (250 mg) once daily on Days 2 through 5. 6 tablet 0 nabumetone (Relafen) 500 mg tablet Take 1 tablet (500 mg) by mouth 2 times daily (morning and late afternoon). predniSONE (Deltasone) 10 mg tablet Take 3 tablets (30 mg) by mouth once daily for 7 days. 21 tablet 0 avzqqeqbmfnhhex-MY-bgviqwqyobz (Capmist DM) 60-15-400 mg tablet Take 1 tablet by mouth every 6 hours if needed (URI symptoms) for up to 7 days. 28 tablet 0 testosterone enanthate (Xyosted) 100 mg/0.5 mL auto-injector Inject 1 Syringe (100 mg) under the skin every 7 days. 4 each 5 No current facility-administered medications for this visit. [4] Past Surgical History: Procedure Laterality Date ANTERIOR CRUCIATE LIGAMENT REPAIR MANDIBLE FRACTURE SURGERY ROTATOR CUFF REPAIR WRIST FRACTURE SURGERY [5] No family history on file. documented in this encounter [facility] Work Phone: 07-22-2024 History of Present illness Narrative 58 y.o. male patient presents for evaluation of sinus pressure. Patient reports 2 weeks of progressively worsening maxillary sinus pain, nasal congestion, and headache. There is reported mild postnasal drip and ear pressure. No fever, cough, or other constitutional signs and symptoms. Symptoms have been refractory to wbjl-cyh-qgfjwwx medications as well as a course of Augmentin and Bromfed. Vitals: 07/22/24 1447 BP: (!) 131/95 Pulse: 84 Resp: 16 Temp: 36.8 C (98.3 F) SpO2: 100% No Known Allergies Medication Documentation Review Audit Reviewed by Dennys Schroeder MA ([employer]) on 07/22/24 at 1447 Medication Order Taking? Sig Documenting Provider Last Dose Status amoxicillin-pot clavulanate (Augmentin) 875-125 mg tablet [id number] Yes Take 1 tablet by mouth 2 times a day for 10 days. SIRI Perdue Active azelastine (Astelin) 137 mcg (0.1 %) nasal spray [id number] Yes Administer into each nostril. Historical ProviderMD Taking Active eqlbsgxosfaclvs-nqrfmijqf-YD 2-30-10 mg/5 mL syrup [id number] Yes Take 5 mL by mouth 4 times a day as needed for congestion or cough for up to 10 days. SIRI Perdue Active carvedilol (Coreg) 12.5 mg tablet [id number] Yes Take by mouth. Historical ProviderMD Taking Active carvedilol (Coreg) 25 mg tablet [id number] Yes Take by mouth. Historical ProviderMD Taking Active Culturelle 15 billion cell capsule, sprinkle capsule [id number] Yes Take by mouth. Historical Provider, Taking Active Florajen Acidophilus 20 billion cell capsule [id number] Yes Take by mouth. Historical Provider, Taking Active lisinopriL-hydrochlorothiazide 10-12.5 mg tablet [id number] Yes Take 1 tablet by mouth once daily at bedtime. Historical Provider, Taking Active losartan (Cozaar) 100 mg tablet [id number] Yes Take by mouth. Historical Provider, Taking Active losartan (Cozaar) 50 mg tablet [id number] Yes Take by mouth. Historical ProviderMD Taking Active meloxicam (Mobic) 7.5 mg tablet [id number] Yes Take by mouth. Historical ProviderMD Taking Active methylPREDNISolone (Medrol Dospak) 4 mg tablets [id number] Yes Take as directed on package. Fredis Piper APRN-SPINDLE CARVER Not Taking Active multivitamin tablet [id number] Yes Take 1 tablet by mouth once daily. Historical ProviderMD Taking Active nabumetone (Relafen) 500 mg tablet [id number] Yes Take 1 tablet (500 mg) by mouth 2 times daily (morning and late afternoon). Historical Provider, Taking Active oxyCODONE (Roxicodone) 5 mg immediate release tablet [id number] Yes Take 1-2 tablets (5-10 mg) by mouth every 6 hours. Historical Provider, Taking Active predniSONE (Deltasone) 10 mg tablet [id number] Yes 4 tabs po daily x 4 days, then 3 tabs po daily x 4 days, then 2 tab po daily x4 days, then 1 tab po daily x 4 days Fredis Piper APRN-LESLEY Active sildenafil (Viagra) 50 mg tablet [id number] Yes Take by mouth. Historical Provider, Taking Active simvastatin (Zocor) 10 mg tablet [id number] Yes Take by mouth. Historical Provider, Taking Active testosterone enanthate (Xyosted) 100 mg/0.5 mL auto-injector [id number] Inject 1 Syringe (100 mg) under the skin every 7 days. Olivia Alvarez MD 08/17/23 235 triamcinolone (Kenalog) 0.1 % ointment [id number] Yes Apply topically. Historical Provider, Taking Active triamcinolone (Kenalog) 0.5 % cream [id number] Yes Apply topically 3 times a day. Fredis Piper APRN-LESLEY Active Past Medical History: Diagnosis Date Hypercholesteremia Hypertension Past Surgical History: Procedure Laterality Date ANTERIOR CRUCIATE LIGAMENT REPAIR MANDIBLE FRACTURE SURGERY ROTATOR CUFF REPAIR WRIST FRACTURE SURGERY ROS See HPI Physical Exam Vitals and nursing note reviewed. Constitutional: General: He is not in acute distress. Appearance: He is ill-appearing (mildly). He is not toxic-appearing or diaphoretic. HENT: Head: Normocephalic and atraumatic. Right Ear: Tympanic membrane, ear canal and external ear normal. Left Ear: Tympanic membrane, ear canal and external ear normal. Nose: Congestion present. Right Sinus: Maxillary sinus tenderness present. Left Sinus: Maxillary sinus tenderness present. Mouth/Throat: Mouth: Mucous membranes are moist. Pharynx: Oropharynx is clear. Eyes: Extraocular Movements: Extraocular movements intact. Conjunctiva/sclera: Conjunctivae normal. Pupils: Pupils are equal, round, and reactive to light. Cardiovascular: Rate and Rhythm: Normal rate. Pulmonary: Effort: Pulmonary effort is normal. Breath sounds: Normal breath sounds. Lymphadenopathy: Cervical: Cervical adenopathy present. Skin: General: Skin is warm. Neurological: General: No focal deficit present. Mental Status: He is alert and oriented to person, place, and time. Psychiatric: Mood and Affect: Mood normal. Behavior: Behavior normal. Assessment/Plan/MDM Tosin was seen today for sinusitis. Diagnoses and all orders for this visit: Acute bronchitis, unspecified organism (Primary) - azithromycin (Zithromax Z-Eleuterio) 250 mg tablet; Take 2 tablets (500 mg) on Day 1, followed by 1 tablet (250 mg) once daily on Days 2 through 5. - methylPREDNISolone (Medrol Dospak) 4 mg tablets; Take as directed on package. Encouraged pt to use otc cold remedies PRN, push PO fluids and rest. Patient's clinical presentation is otherwise unremarkable at this time. Patient is discharged with instructions to follow-up with primary care or seek emergency medical attention for worsening symptoms or any new concerns. I did personally review Tosin's past medical history, surgical history, social history, as well as family history (when relevant). In this case, I also oversaw the his drug management by reviewing his medication list, allergy list, as well as the medications that I prescribed during the UC course and/or recommended as an out-patient (including possible OTC medications such as acetaminophen, NSAIDs , etc). After reviewing the items above, I did look at previous medical documentation, such as recent hospitalizations, office visits, and/or recent consultations with PCP/specialist. SDOH: Another factor that I considered in Tosin's care was his Social Determinants of Health (SDOH). During this UC encounter, he did not have social determinants of health. Those SDOH influencing Tosin's care are: none Fredis Piper CNP [facility] [phone] documented in this encounter [facility] Work Phone: 07-16-2024 History of Present illness Narrative [facility] [place] NOTE: Name: Tosin Mendez, 58 y.o. CSN:[id number] PCP: SIRI Rodriguez ALL: No Known Allergies History: Chief Complaint: URI (Sinus congestion, cough, fevers off and on X 2 weeks ) Encounter Date: 07/16/2024 HPI: The history was obtained from the patient. Tosin is a 58 y.o. male, who presents with a chief complaint of URI (Sinus congestion, cough, fevers off and on X 2 weeks ) Sinus pressure and pain, nasal congestion with yellow mucus, bilateral ear pain/fullness, productive cough with yellow sputum , mild sore throat, and fatigue. Symptoms began 10 days ago, reports symptoms have progressively worsened since onset. Denies any body aches, abdominal pain, chest pain, wheezing/shortness of breath, rashes, urinary symptoms, vomiting, and diarrhea. Denies any lightheadedness or dizziness; no changes in mental status. No swelling in legs. Appetite is decreased; is able to eat and drink fluids without difficulty. Has been taking utilized generic cold and flu without much relief; no other nsid-cez-lkmyotz medications or home remedies for symptom management. PMHx: Past Medical History: Diagnosis Date Hypercholesteremia Hypertension Current Outpatient Medications Medication Sig Dispense Refill azelastine (Astelin) 137 mcg (0.1 %) nasal spray Administer into each nostril. carvedilol (Coreg) 12.5 mg tablet Take by mouth. carvedilol (Coreg) 25 mg tablet Take by mouth. Culturelle 15 billion cell capsule, sprinkle capsule Take by mouth. Florajen Acidophilus 20 billion cell capsule Take by mouth. lisinopriL-hydrochlorothiazide 10-12.5 mg tablet Take 1 tablet by mouth once daily at bedtime. losartan (Cozaar) 100 mg tablet Take by mouth. losartan (Cozaar) 50 mg tablet Take by mouth. meloxicam (Mobic) 7.5 mg tablet Take by mouth. multivitamin tablet Take 1 tablet by mouth once daily. nabumetone (Relafen) 500 mg tablet Take 1 tablet (500 mg) by mouth 2 times daily (morning and late afternoon). oxyCODONE (Roxicodone) 5 mg immediate release tablet Take 1-2 tablets (5-10 mg) by mouth every 6 hours. sildenafil (Viagra) 50 mg tablet Take by mouth. simvastatin (Zocor) 10 mg tablet Take by mouth. triamcinolone (Kenalog) 0.1 % ointment Apply topically. triamcinolone (Kenalog) 0.5 % cream Apply topically 3 times a day. 30 g 2 amoxicillin-pot clavulanate (Augmentin) 875-125 mg tablet Take 1 tablet by mouth 2 times a day for 10 days. 20 tablet 0 ofopeukskzzjpcu-ytojhcmbq-LC 2-30-10 mg/5 mL syrup Take 5 mL by mouth 4 times a day as needed for congestion or cough for up to 10 days. 120 mL 0 methylPREDNISolone (Medrol Dospak) 4 mg tablets Take as directed on package. (Patient not taking: Reported on 07/16/2024) 21 tablet 0 predniSONE (Deltasone) 10 mg tablet 4 tabs po daily x 4 days, then 3 tabs po daily x 4 days, then 2 tab po daily x4 days, then 1 tab po daily x 4 days (Patient not taking: Reported on 07/16/2024) 40 tablet 0 testosterone enanthate (Xyosted) 100 mg/0.5 mL auto-injector Inject 1 Syringe (100 mg) under the skin every 7 days. 4 each 5 No current facility-administered medications for this visit. PMSx: Past Surgical History: Procedure Laterality Date ANTERIOR CRUCIATE LIGAMENT REPAIR MANDIBLE FRACTURE SURGERY ROTATOR CUFF REPAIR WRIST FRACTURE SURGERY Fam Hx: No family history on file. SOC. Hx: Social History Socioeconomic History Marital status: Single Spouse name: Not on file Number of children: Not on file Years of education: Not on file Highest education level: Not on file Occupational History Not on file Tobacco Use Smoking status: Never Smokeless tobacco: Never Vaping Use Vaping status: Never Used Substance and Sexual Activity Alcohol use: Not on file Drug use: Never Sexual activity: Not on file Other Topics Concern Not on file Social History Narrative Not on file Social Drivers of Health Financial Resource Strain: Not on file Food Insecurity: Not on file Transportation Needs: Not on file Physical Activity: Not on file Stress: Not on file Social Connections: Not on file Intimate Partner Violence: Not on file Housing Stability: Not on file Vitals: 07/16/24 1519 BP: 118/72 Pulse: 54 Resp: 18 Temp: 36.3 C (97.3 F) SpO2: 97% 95.3 kg (210 lb) Physical Exam Vitals and nursing note reviewed. Constitutional: General: He is not in acute distress. Appearance: Normal appearance. HENT: Head: Normocephalic and atraumatic. Comments: Bilateral bogginess with tenderness, and mild edema Right Ear: Hearing, ear canal and external ear normal. A middle ear effusion is present. Tympanic membrane is erythematous. Tympanic membrane is not scarred, retracted or bulging. Tympanic membrane has normal mobility. Left Ear: Hearing, ear canal and external ear normal. A middle ear effusion is present. Tympanic membrane is erythematous. Tympanic membrane is not scarred, retracted or bulging. Tympanic membrane has normal mobility. Nose: Congestion and rhinorrhea present. Rhinorrhea is purulent. Right Sinus: Maxillary sinus tenderness and frontal sinus tenderness present. Left Sinus: Maxillary sinus tenderness and frontal sinus tenderness present. Mouth/Throat: Lips: [place]. Mouth: Mucous membranes are moist. Pharynx: Uvula midline. Posterior oropharyngeal erythema present. No pharyngeal swelling or oropharyngeal exudate. Tonsils: No tonsillar exudate. Cardiovascular: Rate and Rhythm: Normal rate and regular rhythm. Heart sounds: Normal heart sounds. Pulmonary: Effort: Pulmonary effort is normal. No respiratory distress. Breath sounds: Normal breath sounds. No stridor. No wheezing, rhonchi or rales. Chest: Chest wall: No tenderness. Abdominal: General: Bowel sounds are normal. Skin: General: Skin is warm and dry. Capillary Refill: Capillary refill takes less than 2 seconds. Neurological: Mental Status: He is alert and oriented to person, place, and time. I did personally review Tosin's past medical history, surgical history, social history, as well as family history (when relevant). In this case, I also oversaw the his drug management by reviewing his medication list, allergy list, as well as the medications that I prescribed during the UC course and/or recommended as an out-patient (including possible OTC medications such as acetaminophen, NSAIDs , etc). After reviewing the items above, I did look at previous medical documentation, such as recent hospitalizations, office visits, and/or recent consultations with PCP/specialist. SDOH: Another factor that I considered in Tosin's care was his Social Determinants of Health (SDOH). During this UC encounter, he did not have social determinants of health. Those SDOH influencing Tosin's care are: none _ COURSE/MEDICAL DECISION MAKING: Tosni is a 58 y.o., who presents with a working diagnosis of 1. Acute bacterial sinusitis 2. Acute cough Tosin was seen today for uri. Diagnoses and all orders for this visit: Acute bacterial sinusitis (Primary) - amoxicillin-pot clavulanate (Augmentin) 875-125 mg tablet; Take 1 tablet by mouth 2 times a day for 10 days. Acute cough - qkzxnnnbntvtlnb-trszepxnq-TM 2-30-10 mg/5 mL syrup; Take 5 mL by mouth 4 times a day as needed for congestion or cough for up to 10 days. Continue pkxf-akg-aiuocct supportive care, increased oral fluids, and humidified air. Plan of care reviewed with patient. If symptoms change and/or worsen will follow-up with primary care provider, return to urgent care, or go to the nearest emergency department for further evaluation. Patient states understanding and is agreeable with plan of care. Sarah Guallpa APRN, T[facility]AR Advanced Practice Provider [facility] Please note: While the patient may or may not have received printed discharge paperwork, all relevant medical findings, test results, and treatment details are accessible through the electronic medical record system. The patient is encouraged to review their chart via the patient portal for comprehensive information and follow-up instructions. documented in this encounter [facility] Work Phone: 01-09-2024 History of Present illness Narrative 58 y.o. male presents for evaluation of rash to bilateral upper and lower extremities that has been present for the past 4 days. States he has had exposure to poison david/oak. No OTC meds for management. No areas concerning for infection. No other complaints. Vitals: 01/09/24 1555 BP: 132/87 Pulse: 81 Resp: 18 Temp: 37.1 C (98.7 F) SpO2: 96% No Known Allergies Medication Documentation Review Audit Reviewed by Caitlin Morales MA ([employer]) on 01/09/24 at 1554 Medication Order Taking? Sig Documenting Provider Last Dose Status azelastine (Astelin) 137 mcg (0.1 %) nasal spray [id number] Yes Administer into each nostril. Historical ProviderMD Taking Active carvedilol (Coreg) 12.5 mg tablet [id number] Yes Take by mouth. Historical Provider, Taking Active carvedilol (Coreg) 25 mg tablet [id number] Yes Take by mouth. Historical Provider, Taking Active Culturelle 15 billion cell capsule, sprinkle capsule [id number] Yes Take by mouth. Historical ProviderMD Taking Active Florajen Acidophilus 20 billion cell capsule [id number] Yes Take by mouth. Historical ProviderMD Taking Active lisinopriL-hydrochlorothiazide 10-12.5 mg tablet [id number] Yes Take 1 tablet by mouth once daily at bedtime. Historical Provider, Taking Active losartan (Cozaar) 100 mg tablet [id number] Yes Take by mouth. Historical ProviderMD Taking Active losartan (Cozaar) 50 mg tablet [id number] Yes Take by mouth. Historical ProviderMD Taking Active meloxicam (Mobic) 7.5 mg tablet [id number] Yes Take by mouth. Historical ProviderMD Taking Active methylPREDNISolone (Medrol Dospak) 4 mg tablets [id number] Take as directed on package. Patient not taking: Reported on 07/11/2023 Fredis Piper APRN-LESLEY Active multivitamin tablet [id number] Yes Take 1 tablet by mouth once daily. Historical ProviderMD Taking Active nabumetone (Relafen) 500 mg tablet [id number] Yes Take 1 tablet (500 mg) by mouth 2 times daily (morning and late afternoon). Historical ProviderMD Taking Active oxyCODONE (Roxicodone) 5 mg immediate release tablet [id number] Yes Take 1-2 tablets (5-10 mg) by mouth every 6 hours. Historical ProviderMD Taking Active sildenafil (Viagra) 50 mg tablet [id number] Yes Take by mouth. Historical Provider, Taking Active simvastatin (Zocor) 10 mg tablet [id number] Yes Take by mouth. Historical Provider, Taking Active testosterone enanthate (Xyosted) 100 mg/0.5 mL auto-injector [id number] Inject 1 Syringe (100 mg) under the skin every 7 days. Olivia Alvarez MD 08/17/23 2359 triamcinolone (Kenalog) 0.1 % ointment [id number] Yes Apply topically. Historical Provider, Taking Active Past Medical History: Diagnosis Date Hypercholesteremia Hypertension Past Surgical History: Procedure Laterality Date ANTERIOR CRUCIATE LIGAMENT REPAIR MANDIBLE FRACTURE SURGERY ROTATOR CUFF REPAIR WRIST FRACTURE SURGERY ROS See HPI Physical Exam Vitals and nursing note reviewed. Constitutional: General: He is not in acute distress. Appearance: Normal appearance. He is not ill-appearing or toxic-appearing. Skin: General: Skin is warm and dry. Findings: Rash (mildly erythematous vesicular rash scattered over bilateral upper and lower extremities without significant erythema, drainage or concerns for infection) present. Neurological: General: No focal deficit present. Mental Status: He is alert and oriented to person, place, and time. Psychiatric: Mood and Affect: Mood normal. Behavior: Behavior normal. Thought Content: Thought content normal. Judgment: Judgment normal. Assessment/Plan/MDM Tosin was seen today for skin problem. Diagnoses and all orders for this visit: Irritant contact dermatitis due to plants, except food (Primary) - predniSONE (Deltasone) 10 mg tablet; 4 tabs po daily x 4 days, then 3 tabs po daily x 4 days, then 2 tab po daily x4 days, then 1 tab po daily x 4 days Discussed OTC remedies. Patient's clinical presentation is otherwise unremarkable at this time. Patient is discharged with instructions to follow-up with primary care or seek emergency medical attention for worsening symptoms or any new concerns. I did personally review Tosin's past medical history, surgical history, social history, as well as family history (when relevant). In this case, I also oversaw the his drug management by reviewing his medication list, allergy list, as well as the medications that I prescribed during the UC course and/or recommended as an out-patient (including possible OTC medications such as acetaminophen, NSAIDs , etc). After reviewing the items above, I did not look at previous medical documentation, such as recent hospitalizations, office visits, and/or recent consultations with PCP/specialist. SDOH: Another factor that I considered in Tosin's care was his Social Determinants of Health (SDOH). During this UC encounter, he did not have social determinants of health. Those SDOH influencing Tosin's care are: none Fredis Piper CNP [facility] [phone] documented in this encounter [facility] Work Phone: 07-11-2023 History of Present illness Narrative 57 y.o. male patient presents for evaluation of sinus pressure. Patient reports 3 weeks of progressively worsening maxillary sinus pain, cough, nasal congestion, and headache. There is reported mild postnasal drip and ear pressure. No fever, chest pains, SOB or other constitutional signs and symptoms. Patient was seen at onset of illness and prescribed Zpak and medrol dose eleuterio by me without improvement in symptoms. Vitals: 07/11/23 1619 BP: (!) 159/99 Pulse: 66 Resp: 16 Temp: 36.2 C (97.1 F) SpO2: 97% No Known Allergies Medication Documentation Review Audit Reviewed by Sheree Argueta MA ([employer]) on 07/11/23 at 1624 Medication Order Taking? Sig Documenting Provider Last Dose Status azelastine (Astelin) 137 mcg (0.1 %) nasal spray [id number] Yes Administer into each nostril. Historical ProviderMD Taking Active carvedilol (Coreg) 12.5 mg tablet [id number] Yes Take by mouth. Historical Provider, Taking Active carvedilol (Coreg) 25 mg tablet [id number] Yes Take by mouth. Historical Provider, Taking Active Culturelle 15 billion cell capsule, sprinkle capsule [id number] Yes Take by mouth. Historical Provider, Taking Active Florajen Acidophilus 20 billion cell capsule [id number] Yes Take by mouth. Historical Provider, Taking Active lisinopriL-hydrochlorothiazide 10-12.5 mg tablet [id number] Yes Take 1 tablet by mouth once daily at bedtime. Historical Provider, Taking Active losartan (Cozaar) 100 mg tablet [id number] Yes Take by mouth. Historical ProviderMD Taking Active losartan (Cozaar) 50 mg tablet [id number] Yes Take by mouth. Historical Provider, Taking Active meloxicam (Mobic) 7.5 mg tablet [id number] Yes Take by mouth. Historical Provider, Taking Active methylPREDNISolone (Medrol Dospak) 4 mg tablets [id number] No Take as directed on package. Patient not taking: Reported on 07/11/2023 Fredis Piper, HEALTH AND WELLNESS DIRECTOR-[employer] Not Taking Active multivitamin tablet [id number] Yes Take 1 tablet by mouth once daily. Historical Provider, Taking Active nabumetone (Relafen) 500 mg tablet [id number] Yes Take 1 tablet (500 mg) by mouth 2 times a day with meals. Historical Provider, Taking Active oxyCODONE (Roxicodone) 5 mg immediate release tablet [id number] Yes Take 1-2 tablets (5-10 mg) by mouth every 6 hours. Historical ProviderMD Taking Active sildenafil (Viagra) 50 mg tablet [id number] Yes Take by mouth. Historical Provider, Taking Active simvastatin (Zocor) 10 mg tablet [id number] Yes Take by mouth. Historical ProviderMD Taking Active testosterone enanthate (Xyosted) 100 mg/0.5 mL auto-injector [id number] Inject 1 Syringe (100 mg) under the skin every 7 days. Olivia Alvarez MD 05/24/23 2359 triamcinolone (Kenalog) 0.1 % ointment [id number] Yes Apply topically. Historical ProviderMD Taking Active Past Medical History: Diagnosis Date Hypercholesteremia Hypertension Past Surgical History: Procedure Laterality Date ANTERIOR CRUCIATE LIGAMENT REPAIR MANDIBLE FRACTURE SURGERY ROTATOR CUFF REPAIR WRIST FRACTURE SURGERY ROS See HPI Physical Exam Vitals and nursing note reviewed. Constitutional: Appearance: Normal appearance. HENT: Head: Normocephalic and atraumatic. Right Ear: Tympanic membrane, ear canal and external ear normal. Left Ear: Tympanic membrane, ear canal and external ear normal. Nose: Congestion present. Mouth/Throat: Mouth: Mucous membranes are moist. Pharynx: Oropharynx is clear. Eyes: Extraocular Movements: Extraocular movements intact. Conjunctiva/sclera: Conjunctivae normal. Pupils: Pupils are equal, round, and reactive to light. Cardiovascular: Rate and Rhythm: Normal rate and regular rhythm. Pulses: Normal pulses. Heart sounds: Normal heart sounds. Pulmonary: Effort: Pulmonary effort is normal. Breath sounds: Normal breath sounds. Comments: Dry cough Lymphadenopathy: Cervical: No cervical adenopathy. Skin: General: Skin is warm. Capillary Refill: Capillary refill takes less than 2 seconds. Neurological: General: No focal deficit present. Mental Status: He is alert and oriented to person, place, and time. Psychiatric: Mood and Affect: Mood normal. Behavior: Behavior normal. Assessment/Plan/MDM Tosin was seen today for uri. Diagnoses and all orders for this visit: Acute non-recurrent maxillary sinusitis (Primary) - doxycycline (Adoxa) 100 mg tablet; Take 1 tablet (100 mg) by mouth 2 times a day for 7 days. Take with a full glass of water and do not lie down for at least 30 minutes after - predniSONE (Deltasone) 10 mg tablet; Take 6 tablets (60 mg) by mouth once daily for 1 day, THEN 5 tablets (50 mg) once daily for 1 day, THEN 4 tablets (40 mg) once daily for 1 day, THEN 3 tablets (30 mg) once daily for 1 day, THEN 2 tablets (20 mg) once daily for 1 day, THEN 1 tablet (10 mg) once daily for 1 day. Start tomorrow. Encouraged pt to continue otc cold remedies PRN, push by mouth fluids and rest. Patient's clinical presentation is otherwise unremarkable at this time. Patient is discharged with instructions to follow-up with primary care or seek emergency medical attention for worsening symptoms or any new concerns. Fredis Piper CNP [facility] [phone] documented in this encounter [facility] Work Phone: 06-19-2023 History of Present illness Narrative 57 y.o. male patient presents for evaluation of sinus pressure. Patient reports 2 week of progressively worsening maxillary sinus pain, cough, nasal congestion, and headache. There is reported mild postnasal drip and ear pressure. No fever, body aches, chest pains, n/v/d, abdominal pain or other constitutional signs and symptoms. Symptoms have been refractory to qyii-pfl-ylforct medication and doxycycline. Vitals: 06/19/23 1442 BP: (!) 148/101 Pulse: 61 Resp: 16 Temp: 36.1 C (96.9 F) SpO2: 97% No Known Allergies Medication Documentation Review Audit Reviewed by Sheree Argueta MA ([employer]) on 06/19/23 at 1447 Medication Order Taking? Sig Documenting Provider Last Dose Status azelastine (Astelin) 137 mcg (0.1 %) nasal spray [id number] Yes Administer into each nostril. Historical ProviderMD Taking Active benzonatate (Tessalon) 100 mg capsule [id number] Yes Take 1-2 capsules (100-200 mg) by mouth every 8 hours if needed for cough for up to 10 days. Do not crush or chew. SIRI Lawrence Taking Active carvedilol (Coreg) 12.5 mg tablet [id number] Yes Take by mouth. Historical ProviderMD Taking Active carvedilol (Coreg) 25 mg tablet [id number] Yes Take by mouth. Historical ProviderMD Taking Active Culturelle 15 billion cell capsule, sprinkle capsule [id number] Yes Take by mouth. Historical ProviderMD Taking Active doxycycline (Adoxa) 100 mg tablet [id number] No Take 1 tablet (100 mg) by mouth 2 times a day for 10 days. Take with a full glass of water and do not lie down for at least 30 minutes after. Patient not taking: Reported on 06/19/2023 SIRI Lawrence Not Taking Active Florajen Acidophilus 20 billion cell capsule [id number] Yes Take by mouth. Historical ProviderMD Taking Active lisinopriL-hydrochlorothiazide 10-12.5 mg tablet [id number] Yes Take 1 tablet by mouth once daily at bedtime. Historical ProviderMD Taking Active losartan (Cozaar) 100 mg tablet [id number] Yes Take by mouth. Historical ProviderMD Taking Active losartan (Cozaar) 50 mg tablet [id number] Yes Take by mouth. Historical ProviderMD Taking Active meloxicam (Mobic) 7.5 mg tablet [id number] Yes Take by mouth. Historical ProviderMD Taking Active multivitamin tablet [id number] Yes Take 1 tablet by mouth once daily. Historical ProviderMD Taking Active nabumetone (Relafen) 500 mg tablet [id number] Yes Take 1 tablet (500 mg) by mouth 2 times a day with meals. Historical ProviderMD Taking Active oxyCODONE (Roxicodone) 5 mg immediate release tablet [id number] Yes Take 1-2 tablets (5-10 mg) by mouth every 6 hours. Historical ProviderMD Taking Active sildenafil (Viagra) 50 mg tablet [id number] Yes Take by mouth. Historical ProviderMD Taking Active simvastatin (Zocor) 10 mg tablet [id number] Yes Take by mouth. Historical Provider, Taking Active testosterone enanthate (Xyosted) 100 mg/0.5 mL auto-injector [id number] Inject 1 Syringe (100 mg) under the skin every 7 days. Olivia Alvarez MD 05/24/23 2359 triamcinolone (Kenalog) 0.1 % ointment [id number] Yes Apply topically. Historical ProviderMD Taking Active Past Medical History: Diagnosis Date Hypercholesteremia Hypertension Past Surgical History: Procedure Laterality Date ANTERIOR CRUCIATE LIGAMENT REPAIR MANDIBLE FRACTURE SURGERY ROTATOR CUFF REPAIR WRIST FRACTURE SURGERY ROS See HPI Physical Exam Vitals and nursing note reviewed. Constitutional: General: He is not in acute distress. Appearance: He is ill-appearing (mildly). He is not toxic-appearing. HENT: Head: Normocephalic and atraumatic. Right Ear: Tympanic membrane, ear canal and external ear normal. Left Ear: Tympanic membrane, ear canal and external ear normal. Nose: Congestion present. Mouth/Throat: Mouth: Mucous membranes are moist. Pharynx: Oropharynx is clear. Eyes: Extraocular Movements: Extraocular movements intact. Conjunctiva/sclera: Conjunctivae normal. Pupils: Pupils are equal, round, and reactive to light. Cardiovascular: Rate and Rhythm: Normal rate and regular rhythm. Pulses: Normal pulses. Heart sounds: Normal heart sounds. Pulmonary: Effort: Pulmonary effort is normal. Breath sounds: Normal breath sounds. Lymphadenopathy: Cervical: No cervical adenopathy. Skin: General: Skin is warm. Capillary Refill: Capillary refill takes less than 2 seconds. Neurological: General: No focal deficit present. Mental Status: He is alert and oriented to person, place, and time. Psychiatric: Mood and Affect: Mood normal. Behavior: Behavior normal. Assessment/Plan/MDM Tosin was seen today for uri. Diagnoses and all orders for this visit: Acute non-recurrent maxillary sinusitis (Primary) - azithromycin (Zithromax Z-Eleuterio) 250 mg tablet; Take 2 tablets (500 mg) on Day 1, followed by 1 tablet (250 mg) once daily on Days 2 through 5. - methylPREDNISolone (Medrol Dospak) 4 mg tablets; Take as directed on package. Encouraged pt to continue otc cold remedies PRN, push by mouth fluids and rest. Patient's clinical presentation is otherwise unremarkable at this time. Patient is discharged with instructions to follow-up with primary care or seek emergency medical attention for worsening symptoms or any new concerns. Fredis Piper CNP [facility] [phone] documented in this encounter [facility] Work Phone: 06-10-2023 History of Present illness Narrative [facility] SIRI Lawrence Visit Note - 06/10/2023 11:36 AM This note was generated with voice recognition software and may contain errors including spelling, grammar, syntax, and misrecognization of what was dictated. Patient: Tosin Mendez, , 57 y.o., male PCP: SIRI Rodriguez -- ALLERGIES: No Known Allergies CURRENT MEDICATIONS: Current Outpatient Medications Medication Instructions azelastine (Astelin) 137 mcg (0.1 %) nasal spray Each Nostril benzonatate (TESSALON) 100-200 mg, oral, Every 8 hours PRN, Do not crush or chew. carvedilol (Coreg) 12.5 mg tablet oral carvedilol (Coreg) 25 mg tablet oral Culturelle 15 billion cell capsule, sprinkle capsule oral doxycycline (ADOXA) 100 mg, oral, 2 times daily, Take with a full glass of water and do not lie down for at least 30 minutes after. Florajen Acidophilus 20 billion cell capsule oral lisinopriL-hydrochlorothiazide 10-12.5 mg tablet 1 tablet, oral, Nightly losartan (Cozaar) 100 mg tablet oral losartan (Cozaar) 50 mg tablet oral meloxicam (Mobic) 7.5 mg tablet oral multivitamin tablet 1 tablet, oral, Daily nabumetone (RELAFEN) 500 mg, oral, 2 times daily with meals oxyCODONE (Roxicodone) 5 mg immediate release tablet 1-2 tablets, oral, Every 6 hours sildenafil (Viagra) 50 mg tablet oral simvastatin (Zocor) 10 mg tablet oral testosterone enanthate (XYOSTED) 100 mg, subcutaneous, Every 7 days triamcinolone (Kenalog) 0.1 % ointment Topical -- PAST MEDICAL HX: Patient Active Problem List Diagnosis Chronic right shoulder pain Strain of tendon of right rotator cuff Contracture of elbow joint Hypogonadism in male BPH with obstruction/lower urinary tract symptoms Erectile dysfunction Nocturia SURGICAL HX: Past Surgical History: Procedure Laterality Date ANTERIOR CRUCIATE LIGAMENT REPAIR MANDIBLE FRACTURE SURGERY ROTATOR CUFF REPAIR WRIST FRACTURE SURGERY FAMILY HX: No pertinent history. SOCIAL HX: reports that he has never smoked. He has never used smokeless tobacco. Employed - does electrical work. -- CHIEF COMPLAINT: Chief Complaint Patient presents with URI C/o sinus drainage, sore throat, sinus pain x 7 days HISTORY OF PRESENT ILLNESS: The history was obtained from patient. Tosin is a 57 y.o. male, who presents with a chief complaint of sinus congestion (green mucus), watery eyes, a sore throat, and a harsh, persistent, productive cough with green phlegm x approx 10 days. Reports has also had sinus headaches, subjective fevers, chills, and body aches. Denies any ear pain, abdominal pain, chest pain, wheezing/shortness of breath, rashes, urinary symptoms, nausea/vomiting, and diarrhea. Denies any lightheadedness or dizziness; no changes in mental status. No swelling in legs. Appetite is poor but is able to eat and drink fluids without difficulty; denies loss of sense of taste or smell. Reports symptoms are unchanged since onset. Has been taking Dayquil and Nyquil without much relief; no other gzhu-vpq-ppzucji medications or home remedies for symptom management. No known ill contacts. Has received the COVID vaccine x 4 . Last known COVID infection was in 2021 . Is not a smoker. . No known history of asthma/COPD/respiratory issues. REVIEW OF SYSTEMS: 10 systems reviewed negative with exception of history of present illness as listed above. TODAY'S VITALS: BP (!) 139/96 Pulse 68 Temp 36.4 C (97.5 F) Ht 1.82 m (5' 11.65") Wt 95.3 kg (210 lb) SpO2 96% BMI 28.76 kg/m PHYSICAL EXAMINATION: General: Mildly ill-appearing, well nourished male; alert and oriented, in no acute distress. + audible nasal congestion. Eyes: Pupils equal, round and reactive to light. No conjunctival erythema; no scleral icterus. HENT: + maxillary sinus tenderness, with audible nasal congestion. Bilat ear canals clear/unremarkable, but TMs with cloudy effusions bilat; no erythema, and not bulging. Nasal mucosa moderately boggy and edematous. Airway patent, oral mucosa moist. Posterior pharynx mildly injected but without vesicles or oropharyngeal exudate aside from PND. Uvula is midline. Trachea is midline. Managing oral secretions without difficulty. Neck: Supple. Tender, mobile anterior cervical lymphadenopathy bilat. Respiratory: Lungs are clear to auscultation; no wheezes, rhonchi, or rales. Respirations unlabored, Breath sounds are equal, Symmetrical chest wall expansion. + persistent, non-productive cough noted. Cardiovascular: Normal rate, Regular rhythm. Normal S1S2. No m/r/g. No peripheral edema. Gastrointestinal: Soft, non-tender, non-distended; no palpable masses or organomegaly. Bowel sounds normoactive. Musculoskeletal: Grossly normal Integumentary: [place], warm, dry, and intact. No rashes or skin discoloration appreciated. Neurologic: Alert and oriented, no focal deficits, no motor or sensory deficits. Cognition and Speech: Oriented, Speech clear and coherent. Psychiatric: Cooperative, Appropriate mood & affect. -- Medical Decision Making LABORATORY or RADIOLOGICAL IMAGING ORDERS/RESULTS: None IMPRESSION/PLAN: Course: Worsening; stable 1. Acute maxillary sinusitis, recurrence not specified 2. Acute bronchitis, unspecified organism - doxycycline (Adoxa) 100 mg tablet; Take 1 tablet (100 mg) by mouth 2 times a day for 10 days. Take with a full glass of water and do not lie down for at least 30 minutes after. Dispense: 20 tablet; Refill: 0 - benzonatate (Tessalon) 100 mg capsule; Take 1-2 capsules (100-200 mg) by mouth every 8 hours if needed for cough. Do not crush or chew. Dispense: 60 capsule; Refill: 0 Discussed COVID-19 testing today - pt declined, but urged precautionary measures and to consider home testing. Symptoms consistent with sinusitis/bronchitis, although reviewed other potential etiologies. Per history, no improvement despite 1.5 weeks of conservative measures, so will begin treatment for bacterial infection today (Doxycycline BID x 10 days). Will also start Tessalon for PRN use. Should finish full course of antibiotics, even if symptoms resolve more quickly. Instructed to push fluids, rest, and to use appropriate over the counter medications as needed for management of symptoms - discussed that Mucinex, vaporizer, and Saline Nasal [place] may be helpful. Reviewed red flags to monitor for, counseled on potential adverse reactions of treatments, expectations for improvement in sxs, and advised to follow-up with primary care provider in 3-5 days if symptoms persist, or sooner if worsening or if any additional concerns/red flags develop. Patient verbalized understanding and agreed with plan of care; questions were encouraged and answered. SIRI Lawrence Advanced Practice Provider [facility] documented in this encounter [facility] Work Phone: 03-20-2023 History of Present illness Narrative The pt presents with Medical Dx of R RTC Strain, R shoulder pain, S/P R Shoulder RTC Repair on 03/20/2023. Pt presents with the following deficits: increased pain, decreased strength, ROM, flexibility and functional ability to reach out and lift objects with R UE. Pt would benefit from PT services in order to improve on these deficits and to maximize strength and ability for functional activity/mobility.Clinical Presentation: Evolving with changing characteristics.Level of Complexity: lowProblem List: activity limitations, ADLs/IADLs/self care skills, decreased knowledge of HEP, flexibility, pain, range of motion/joint mobility and strength. [facility] Work Phone: 03-20-2023 History of Present illness Narrative The pt presents with Medical Dx of R RTC Strain, R shoulder pain, S/P R Shoulder RTC Repair on 03/20/2023. Pt presents with the following deficits: increased pain, decreased strength, ROM, flexibility and functional ability to reach out and lift objects with R UE. Pt would benefit from PT services in order to improve on these deficits and to maximize strength and ability for functional activity/mobility.Clinical Presentation: Evolving with changing characteristics.Level of Complexity: lowProblem List: activity limitations, ADLs/IADLs/self care skills, decreased knowledge of HEP, flexibility, pain, range of motion/joint mobility and strength. [facility] Work Phone: 03-20-2023 Procedure note [facility] Evaluation note Diagnosis Onset Date Fatigue acute Preoperative clearance acute Essential (primary) hypertension chronic Hyperlipidemia chronic Non-ischemic cardiomyopathy [facility] Work Phone: Evaluation note* Diagnosis Acute maxillary sinusitis, recurrence not specified- Primary Acute bronchitis, unspecified organism documented in this encounter [facility] Work Phone: Evaluation note* Diagnosis Acute non-recurrent maxillary sinusitis- Primary documented in this encounter [facility] Work Phone: Evaluation note* Diagnosis Acute non-recurrent maxillary sinusitis- Primary documented in this encounter [facility] Work Phone: Evaluation note* Diagnosis Irritant contact dermatitis due to plants, except food- Primary Contact dermatitis and other eczema due to plants (except food) documented in this encounter [facility] Work Phone: Evaluation note* Diagnosis Acute bacterial sinusitis- Primary Acute sinusitis, unspecified Acute cough documented in this encounter [facility] Work Phone: Evaluation note* Diagnosis Acute bronchitis, unspecified organism- Primary documented in this encounter [facility] Work Phone: Evaluation note* Diagnosis Acute bronchitis, unspecified organism- Primary Acute cough documented in this encounter [facility] Work Phone: History of Present illness Narrative* Patient identified by name and date of . * Spoke with evaluating PT regarding protocol and he states that he called MD office to try to get one but has not heard back. Advised to focus on PROM. * Pain with passive flexion to 50 degrees. Scapular tightness present, so STW was completed to help with myofascial restrictions in that region. * Patient was able to complete today's treatment with some difficulty. [facility] Work Phone: Hospital Discharge instructions Additional Instructions [facility] Reason for visit Narrative* Initial Evaluation. * Referred by: Dr. Gentile [facility] Work Phone: Reason for visit Narrative* Initial Evaluation. * Referred by: Dr. Gentile [facility] Work Phone: Summary Purpose Family History No Family History Records Found Relationship Condition Age at Onset Recorded Date/T vanesa father Cardiac disease Unknown mother Diabetes mellitus Unknown Advance Directives No Advanced Directives Records Found Advance Directive Response Recorded Date/ Time Living Will No March 06 3 8:36am Power of E Business Project Manager No March 06 023 8:36am Chief Complaint and Reason for Visit Chief Complaint 6 M FU / NEEDS EKG F OR SURG CLEARANCE E-ORDER FATIGUE, CAD HX FATIGUE, CAD HX Reason for Visit Fatigue Preoperative clearance Essential (primary) hypertension Hyperlipidemia Non-ischemic cardiomyopathy Chief Complaint 6 M FU / NEEDS EKG F OR SURG CLEARANCE E-ORDER FATIGUE, CAD HX FATIGUE, CAD HX RIGHT SHOULDER ARTHROSOCPY WITH SUBACROMIAL DECOMP Reason for Visit Fatigue Preoperative clearance Essential (primary) hypertension Hyperlipidemia Non-ischemic cardiomyopathy Additional Source Comments (unrecognized sect ion and content) No Status Records FoundNo Status Records FoundNo Status Records FoundNo Status Records FoundNo Status Records FoundNo Status Records FoundNo Status Records FoundNo Status Records Found INFORMATION SOURCE (unrecogn ized section and content) DATE CREATED AUTHOR 01/29/2019 [facility] DATE CREATED AUTHOR AUTHOR'S ORGANIZ ATION 03/22/2022 [facility] DATE CREATED AUTHOR AUTHOR'S ORGANIZ ATION 04/10/2023 [facility] DATE CREATED AUTHOR AUTHOR'S ORGANIZ ATION 04/11/2023 [facility] DATE CREATED AUTHOR AUTHOR'S ORGANIZ ATION 07/22/2023 [facility] DATE CREATED AUTHOR AUTHOR'S ORGANIZ ATION 03/19/2024 [facility] DATE CREATED AUTHOR AUTHOR'S ORGANIZ ATION 06/20/2024 [facility] DATE CREATED AUTHOR AUTHOR'S ORGANIZ ATION 03/27/2025 [facility] <item><item> Privacy Markings (unrecogniz ed section and content) Section Author: Elisabeth Correa PROHIBITION ON REDISCLOSURE OF CONFIDENTIAL INFORMATION This notice accompanies a disclosure of information concerning a client made to you with the consent of such client. Section Author: Elisabeth Correa PROHIBITION ON REDISCLOSURE OF CONFIDENTIAL INFORMATION This notice accompanies a disclosure of information concerning a client made to you with the consent of such client. Care Teams (unrecognized sec tion and content) Team Status: Active Member Role Status Dates Susu Hawkins SUPERVISOR BLAST FURNACE, SUPERVISOR BLAST FURNACE-C Family Provider Active Susu Hawkins SUPERVISOR BLAST FURNACE, SUPERVISOR BLAST FURNACE-C Primary Care Provider Active Team Status: Inactive Member Role Status Dates Susu Hawkins SUPERVISOR BLAST FURNACE, SUPERVISOR BLAST FURNACE-C Primary Care Provider, Referring Provider Active Olivia Guajardo SUPERVISOR BLAST FURNACE, SUPERVISOR BLAST FURNACE-C Attending Provider Active Team Status: Active Member Role Status Dates Susu Hawkins SUPERVISOR BLAST FURNACE, SUPERVISOR BLAST FURNACE-C Primary Care Provider Active Olivia Guajardo SUPERVISOR BLAST FURNACE, SUPERVISOR BLAST FURNACE-C Referring Provider, Other Provide r Active Dr. Alicia Conley MD Attending Provider Activ e Team Status: Inactive Member Role Status Dates Susu Hawkins SUPERVISOR BLAST FURNACE, SUPERVISOR BLAST FURNACE-C Primary Care Provider Active Olivia Guajardo SUPERVISOR BLAST FURNACE, SUPERVISOR BLAST FURNACE-C Attending Provider, Referring Pro vider Active Team Status: Active Member Role Status Dates Susu Hawkins SUPERVISOR BLAST FURNACE, SUPERVISOR BLAST FURNACE-C Primary Care Provider Active Olivia Guajardo SUPERVISOR BLAST FURNACE, SUPERVISOR BLAST FURNACE-C Attending Provider, Referring Pro vider Active Team Status: Active Member Role Status Dates Susu Hawkins SUPERVISOR BLAST FURNACE, SUPERVISOR BLAST FURNACE-C Primary Care Provider Active Dr. Silas Ta MD Attending Provider, Referring Pro vider Active Team Status: Inactive Member Role Status Dates Susu Hawkins SUPERVISOR BLAST FURNACE, SUPERVISOR BLAST FURNACE-C Primary Care Provider Active Dr. Mitchel Gentile DO Attending Provider, Referring Provider Active [place] Brusher Relationship Specialty Start Date End Date Susu Hawkins APRN-SPINDLE CARVER [address] [facility] [place], [id number] PCP - General 02/16/23 [place]usher Relationship Specialty Start Date End Date Susu Hawkins HEALTH AND WELLNESS DIRECTOR-SPINDLE [employer]VER [address] [facility] [place] [address] PCP - General 02/16/23 Bottom Brusher Relationship Specialty Start Date End Date Susu Hawkins HEALTH AND WELLNESS DIRECTOR-SPINDLE CARVER [address] [facility] [place] [address] PCP - General 02/16/23 Bottom Brusher Relationship Specialty Start Date End Date Susu Hawkins APRN-CNP [address] [facility] [place] [address] PCP - General 02/16/23 Bottom Brusher Relationship Specialty Start Date End Date Susu Hawkins APRN-CNP [address] [facility] [place] [address] PCP - General 02/16/23 Bottom Brusher Relationship Specialty Start Date End Date Susu Hawkins APRN-CNP [address] [facility] [place] [address] PCP - General 02/16/23 Bottom Brusher Relationship Specialty Start Date End Date Susu Hawkins APRN-CNP [address] [facility] [place] [address] PCP - General 02/16/23 Goals (unrecognized section and content) Goals may be documented in a n alternate sectionGoals may be documented in an alternate section Reason for Visit (unrecogniz ed section and content) Reason Comments URI C/o sinus drainage, sore throat, sinus pain x 7 days Reason Comments URI COUGH, CONGESTION, R UNNY EYES, FEVER X 3 WEEKS Reason Comments URI COUGH, CHEST CONGEST ION, RUNNY NOSE, FEVER OFF AND ON, WATERY EYES X 1 MONTH Reason Comments Skin Problem Skin irritation X 4 days Reason Comments URI Sinus congestion, co ugh, fevers off and on X 2 weeks Reason Comments Sinusitis Sinus symptoms worse [place] since visit on 07/16 Reason Comments URI Cough, sinus congest ion, chest congestion, aches X 8 days FOR RECORDS PERTAINING TO PATIENTS WHO ARE OR HAVE BEEN ENROLLED IN A CHEMICAL DEPENDENCY/SUBSTANCEABUSE PROGRAM, SOME INFORMATION MAY BE OMITTED. This clinical summary was aggregated from multiple sources. Caution should be exercised in using it in the provision of clinical care. This summary normalizes information from multiple sources, and as a consequence, information in this document may materially change the coding, format and clinical context of patient data. In addition, data may be omitted in some cases. CLINICAL DECISIONS SHOULD BE BASED ON THE PRIMARY CLINICAL RECORDS. [facility]. provides no warranty or guarantee of the accuracy or completeness of information in this document.
[2025-04-24 12:22] LABS: AST(SGOT) 30 U/L (<=37); Alanine Aminotransfer ALT/SGPT 26 U/L (<=46); Albumin, Serum 4.4 g/dL (3.5-5.0); Alkaline Phosphatase 61 U/L (40-129); Bilirubin, Direct 0.17 mg/dL (0.00-0.30); Globulin 3.3 g/dL (2.2-4.2)
[2025-04-24 12:41] LABS: Cholesterol 152 mg/dL (<=200); Low Density Lipoprotein Calc. 71 mg/dL; Triglycerides 214 mg/dL; Very Low Density Lipoprotein 43 mg/dL (5-40); cholesterol:hdl ratio screen 3.95
== END | disposition home or self-care (01) ==
PROVIDERS: PCP Nurse Practitioner Family; Referring Provider Internal Medicine Cardiovascular Disease; Visit Provider Internal Medicine Cardiovascular Disease
DX: E78.5 Hyperlipidemia, unspecified (principal)
CPT/HCPCS: 36415; 80061; 80076